=== PATIENT | female | born 1980 | race Caucasian/White ===

== ENCOUNTER 2019-01-08 16:51 | Emergency (ER) | payer SELFPAY ==
[~2019-01-08] VITALS: Ht 160 cm; Wt 59.0 kg
[~2019-01-08 16:51] MED LIST: ACYSUS PO; CEPH500C PO; FLC150T PO; METR500T PO; OXYC-12 PO; OXYC1TAB28 PO
--- NOTE | 2019-01-08 17:17 | NUR ---
DR BRUCE IN ROOM TRYING TO REMOVE THE RING.
[2019-01-08] MEDS ORDERED: LIDOCAINE 1% INJ 20 ML 20 ML VIAL ONE (17:34)
--- NOTE | 2019-01-08 17:56 | ED Upper Extremity ---
General Chief Complaint: Upper Extremity Stated Complaint: RING STUCK ON R PINKY FINGER Nursing Triage Note: TO TRIAGE WITH RING STUCK ON RIGHT 5TH FINGER. Nursing Sepsis Screen: No Definite Risk Source: patient Exam Limitations: no limitations History of Present Illness Date Seen by Provider: Jan 08, 2019 Time Seen by Provider: 17:10 Initial Comments 38-year-old female who presents to the emergency room with complaints of a ring has been stuck on her finger for the past 4 days. The pain is located on her right fifth finger. She reports that she has tried to cut the ring off at home on her own and has caused several small abrasions to her finger that has caused an infection. She has erythema and a moderate amount of swelling around the ring to the palmar surface of the finger. Onset: other (4 days) Pain/Injury Location: right 5th finger Allergies and Home Medications Allergies Coded Allergies: Sulfa (Sulfonamides) (Unverified Allergy, Unknown, 10/21/10) Home Medications Cephalexin 500 Mg Capsule, 500 MG PO TID Prescribed by: ALTA BARRETT on 01/08/19 1921 Patient Home Medication List Home Medication List Reviewed: Yes Review of Systems Constitutional: no symptoms reported, see HPI Skin: see HPI, other (Ring stuck on right fifth finger.) All Other Systems Reviewed Negative Unless Noted: Yes Past Jkbmnrj-Vcliju-Dqekdc Hx Past Med/Social Hx: Reviewed Nursing Past Med/Soc Hx Patient Social History Alcohol Use: Occasionally Uses Recreational Drug Use: No Smoking Status: Current Everyday Smoker Recent Foreign Travel: No Contact w/Someone Who Travel: No Recent Infectious Disease Expo: No Recent Hopitalizations: No Past Medical History Surgeries: No Respiratory: No Cardiac: No Neurological: No : No Reproductive Disorders: Yes Genitourinary: No Gastrointestinal: No Musculoskeletal: No Endocrine: No Cancer: No Psychosocial: Yes Anxiety Integumentary: No Blood Disorders: No Family Medical History Reviewed Nursing Family Hx Physical Exam Vital Signs Vital Signs - First Documented 01/08/19 16:57 Temp 98.7 Pulse 98 Resp 16 B/P (MAP) 114/90 (98) Pulse Ox 98 O2 Delivery Room Air Capillary Refill : Less Than 3 Seconds Height, Weight, BMI Height: 5'3.00" Weight: 130lbs. oz. 58.874898om; BMI Method:Stated General Appearance: WD/WN, no apparent distress Cardiovascular: normal peripheral pulses, regular rate, rhythm, no edema, no gallop, no JVD, no murmur Respiratory: chest non-tender, lungs clear, normal breath sounds, no respiratory distress, no accessory muscle use Hand: Right (fifth finger. ), infection (mild erythema and swelling to the palmar surface of the right fifth finger.), soft tissue tenderness, swelling Neurologic/Tendon: normal sensation, normal motor functions, normal tendon functions, responds to pain, no evidence tendon injury Neurologic/Psychiatric: alert, normal mood/affect, oriented x 3 Skin: normal color, warm/dry Procedures/Interventions Progress Ring was removed with a Dremel Tool with a circulating blade. The skin was protected from the dermal tool bladed by a thin piece of metal that was able to be slipped underneath the ring. The ring was cut into and pried apart to be able to be slipped off the finger. The patient has some macerated skin to the palmar surface of the finger and a moderate amount of swelling and erythema to the palmar surface of the finger. The patient was updated on her tetanus vaccine and she will be placed on oral antibiotics. She tolerated procedure well. The patient had full range of motion to the finger after removal of the ring. Progress/Results/Core Measures Results/Orders My Orders Orders - ALTA BARRETT Lidocaine 1% Inj 20 Ml (Xylocaine 1% Inj (01/08/19 17:34) Dipht,Pertuss(Acell),Tet Adult (Boostrix (01/08/19 18:00) Medications Given in ED Current Medications Medications Dose Ordered Sig/Soniya Route Start Time Stop Time Status Last Admin Dose Admin Lidocaine HCl 20 ml STK-MED ONCE .ROUTE 01/08/19 17:34 01/08/19 17:36 DC 01/08/19 17:42 20 ML Vital Signs/I&O 01/08/19 16:57 Temp 98.7 Pulse 98 Resp 16 B/P (MAP) 114/90 (98) Pulse Ox 98 O2 Delivery Room Air Blood Pressure Mean: 98 Departure Impression Primary Impression: removal of ring Additional Impression: Cellulitis Disposition: 01 HOME, SELF-CARE Condition: Stable/Unchanged Departure-Patient Inst. Decision time for Depature: 17:55 Referrals: NO,LOCAL PHYSICIAN (PCP/Family) Primary Care Physician Patient Instructions: Cellulitis (Skin Infection), Adult (DC) Add. Discharge Instructions: Take antibiotics as directed. Watch for furthering infection such as increased redness, swelling, drainage, red streaks going up the arm. You may use ibuprofen and Tylenol as directed by the bottle for pain relief. Return back to the emergency room for worsening symptoms. Follow-up With your primary care as needed. All discharge instructions reviewed with patient and/or family. Voiced understanding. Scripts Cephalexin (Keflex) 500 Mg Capsule 500 MG PO TID for 7 Days, #21 CAP Prov: ALTA BARRETT 01/08/19 ALTA BARRETT Jan 08, 2019 17:56
[2019-01-08] MEDS ORDERED: CEPH-507 PO (17:58)
[2019-01-08] MEDS ORDERED: TETANUS,DIPTH,PERTUSS P/F (BOOSTRIX) 0.5 ML VIAL IM ONE (18:00)
[2019-01-08 18:18] VITALS: BP 114/90
== END 2019-01-08 18:18 | disposition home or self-care (01) ==
LOC: EDUNIT# 16:51 → ER 16:52
DX: S60.456A Superficial foreign body of right little finger, initial encounter (principal); L03.011 Cellulitis of right finger; F41.9 Anxiety disorder, unspecified; F17.200 Nicotine dependence, unspecified, uncomplicated; Z23 Encounter for immunization; Z88.2 Allergy status to sulfonamides; X58.XXXA Exposure to other specified factors, initial encounter
CPT/HCPCS: 64450; 90715

== ENCOUNTER 2021-11-26 05:54 | Emergency (ER) | payer MEDICAID ==
[~2021-11-26 05:54] MED LIST changes: +CEPH-507 PO
--- OUTSIDE RECORDS SUMMARY | 2021-11-26 06:02 | XMS REPORT | Encounter Summary ---
Author Author [facility] Organization [facility] Address Unknown Phone Unavailable Care Team Providers Care Marketing Operations Consultant Name Role Phone No Pcp, Na PCP Unavailable Encounter Details Care Team Description Date Type Department Marcela King MD [address] [facility] [address] [address] Pelvic relaxation due to uterovaginal pr olapse, complete (Primary Dx); Encounter for screening laboratory testing for COVID-19 virus in asymptomatic patient; OAB (overactive bladder); Stress incontinence in female 11/06/2021 Prep for Case Urogynecology: [facility], [facility] [address] [place] [address] Social History Date Tobacco Use Types Packs/Day Years Used Current Every Day Smoker Cigarettes 0.5 Smokeless Tobacco: Never Used Comments Alcohol Use Standard Drinks/Week occ Yes 0 (1 standard drink = 0.6 o z pure alcohol) Alcohol Habits Answer Date Recorded How often do you have a drink containing alcohol? No t asked How many drinks containing alcohol do you have on No t asked a typical day when you are drinking? How often do you have six or more drinks on one Not asked occasion? Comment: occ 09/28/2021 Sex Assigned at Date Recorded Female 11/24/2021 11:30 AM V[employer]ITY B[employer] Date Recorded COVID-19 Exposure Response 10/11/2021 11:34 AM [employer] B[employer]ACH In the last month, have you been in contact with No / Unsure someone who was confirmed or suspected to have Coronavirus / COVID-19? documented as of this encounter Functional Status Date of Assessment Functional Status Response 09/29/2021 Does the patient have a hearing impairment: No documented as of this encounter Ordered Prescriptions Start Date End Date Prescription Sig Dispensed Refills 11/06/2021 metroNIDAZOLE (FLAGYL) Please take 6 tablet 0 500 mg tabletIndications: at the [facility] pre-surgical following preparation times: *1pm: take 2 tablets of Neomycin (500 mg tablets) and 2 tablets of Flagyl (500 mg tablets) *3pm: Take 2 tablets of Neomycin (500 mg tablets) and 2 tablets of Flagyl (500 mg tablets) *11pm: Take 2 tablets of Neomycin (500 mg tablets) and 2 tablets of Flagyl (500 mg tablets) *Please try to take all the antibiotics. Indications: [facility] pre-surgical preparation 11/06/2021 neomycin (MYCIFRADIN) 500 Please take 6 tablet 0 mg tabletIndications: at the [facility] pre-surgical following preparation times: *1pm: take 2 tablets of Neomycin (500 mg tablets) and 2 tablets of Flagyl (500 mg tablets) *3pm: Take 2 tablets of Neomycin (500 mg tablets) and 2 tablets of Flagyl (500 mg tablets) *11pm: Take 2 tablets of Neomycin (500 mg tablets) and 2 tablets of Flagyl (500 mg tablets) *Please try to take all the antibiotics. Indications: [facility] pre-surgical preparation 11/06/2021 11/07/2021 PRESURGERY KIT Use as 1 kit 0 AIndications: [facility] directed. pre-surgical preparation Indications: [facility] pre-surgical preparation documented in this encounter Plan of Treatment Care Team Description Date Type Specialty Marcela King MD [address] [facility] [address] [place] [id number] Encounter for screening laboratory testi ng for COVID-19 virus in asymptomatic patient 12/12/2021 Hospital Encounter Ney Mclain MD [id number] [place] [address] 12/12/2021 Anesthesia Event Marcela King MD [address] [facility] [address] [place] [id number] ROBOT ASSISTED LAPAROSCOPIC SUPRACERVICA L HYSTERECTOMY WITH REMOVAL OF TUBE/ OVARY - UTERUS 250 G OR LESS 12/12/2021 Surgery Order Schedule Name Type Priority Associated Diag noses Expected: 12/09/2021 (Approximate), Expi res: 11/06/2022 COVID-19 (SARS-COV-2) PCR Microbiology Routine Enco unter for screening laboratory testing for COVID-19 virus in asymptomatic patient ONE TIME for 1 Occurrences starting 10/13 until 11/06/2021 AMPHETAMINES-URINE RANDOM Lab Routine Date/Time Name Priority Associated Diagnose s 12/12/2021 7:45 AM VARSITY BASEBALL COACH ROBOT ASSISTED LAPAROSCOPIC Encounter for screening SUPRACERVICAL HYSTERECTOMY WITH REMOVAL laboratory testing for OF TUBE/ OVARY - UTERUS 250 G OR LESS COVID-19 viru s in asymptomatic patient 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, complete OAB (overactive bladder) Stress incontinence in female 12/12/2021 7:45 AM VARSITY BASEBALL COACH ROBOT ASSISTED LAPAROSCOPIC COLPOPEXY Encounter for screening laboratory testing for COVID-19 virus in asymptomatic patient 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, complete OAB (overactive bladder) Stress incontinence in female 12/12/2021 7:45 AM VARSITY BASEBALL COACH ABDOMINAL REPAIR OF ENTEROCELE Encounter for screen ing laboratory testing for COVID-19 virus in asymptomatic patient 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, complete OAB (overactive bladder) Stress incontinence in female 12/12/2021 7:45 AM VARSITY BASEBALL COACH ANTERIOR COLPORRHAPHY AND REPAIR OF Encounter for s creening CYSTOCELE WITH/ WITHOUT URETHROCELE laboratory test ing for COVID-19 virus in asymptomatic patient 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, complete OAB (overactive bladder) Stress incontinence in female 12/12/2021 7:45 AM VARSITY BASEBALL COACH POSTERIOR COLPORRHAPHY REPAIR OF Encounter for scre ening RECTOCELE WITH/ WITHOUT PERINEORRHAPHY laboratory t esting for COVID-19 virus in asymptomatic patient 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, complete OAB (overactive bladder) Stress incontinence in female 12/12/2021 7:45 AM VARSITY BASEBALL COACH SLING OPERATION FOR STRESS INCONTINENCE Encounter f or screening laboratory testing for COVID-19 virus in asymptomatic patient 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, complete OAB (overactive bladder) Stress incontinence in female 12/12/2021 7:45 AM VARSITY BASEBALL COACH CYSTOURETHROSCOPY Encounter for screening laboratory testing for COVID-19 virus in asymptomatic patient 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, complete OAB (overactive bladder) Stress incontinence in female 12/12/2021 7:45 AM VARSITY BASEBALL COACH EXAM PELVIS UNDER ANESTHESIA Encounter for screenin g laboratory testing for COVID-19 virus in asymptomatic patient 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, complete OAB (overactive bladder) Stress incontinence in female documented as of this encounter Visit Diagnoses Diagnosis Pelvic relaxation due to uterovaginal p rolapse, complete - Primary Uterovaginal prolapse, complete Encounter for screening laboratory test ing for COVID-19 virus in asymptomatic patient OAB (overactive bladder) Hypertonicity of bladder Stress incontinence in female Female stress incontinence Encounter for screening laboratory test ing for COVID-19 virus in asymptomatic patient Pelvic relaxation due to uterovaginal p rolapse, complete Uterovaginal prolapse, complete OAB (overactive bladder) Hypertonicity of bladder Stress incontinence in female Female stress incontinence documented in this encounter Orders First Ordered Date Case Request Count Last Ordered Date CASE REQUEST 1 11/06/2021 documented in this encounter Additional Health Concerns Noted Time Assessment 09/30/2021 8:20 AM [employer]ITY [employer] COACH A fall risk assessment has been complet ed for the patient 10/11/2021 11:48 AM VARSITY BASEBALL COACH PHQ-2 Depression Total Score: 0 documented as of this encounter Care Teams Start Date End Date Marketing Operations Consultant Relationship Specialty 09/28/21 No Pcp, Na PCP - General documented as of this encounter
--- OUTSIDE RECORDS SUMMARY | 2021-11-26 06:02 | XMS REPORT | Encounter Summary ---
Author Author [facility] Organization [facility] Address Unknown Phone Unavailable Care Team Providers Care Cdl A Driver Name Role Phone No Pcp, Na PCP Unavailable Reason for Referral * Consult, Test & Treat (Routine) - Authorized Diagnoses / Procedures Referred By Contact Referred To Conta ct Specialty Diagnoses Encounter to establish care Marcela King MD [address] [facility] [facility] [address] [place] [id number] [facility] [address] [place] [address] Family Medicine Referral ID Status Reason Start Date Expiration Visits Vi sits Date Requested Authorized [id number] Authorized Specialty Services 10/11/2021 10/11/2022 1 1 Required Comments Patient needs to establish care with a pcp as she [place].she will be having surgery here and wants all care at [facility] Reason for Visit * Reason Comments New Patient vaginal Prolapse/ wearing p essary Encounter Details Care Team Description Date Type Department Marcela King MD [address] [facility] [address] [place] [id number] Bacterial vaginosis (Primary Dx); Encounter to establish care; Suspected UTI; 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 [place] [phone] Social History Date Tobacco Use Types Packs/Day [...] at Date Recorded Female 11/24/2021 11:30 AM DIRECT ENTRY MIDWIFE Date Recorded COVID-19 Exposure Response 10/11/2021 11:34 AM DIRECT ENTRY MIDWIFE In the last month, have you been in contact with No / Unsure someone who was confirmed or suspected to have Coronavirus / COVID-19? documented as of this encounter Last Filed Vital Signs Reading Time Taken Comments Vital Sign 102/84 10/11/2021 11:43 AM DIRECT ENTRY MIDWIFE Blood Pressure 96 10/11/2021 11:43 AM DIRECT ENTRY MIDWIFE Pulse 37.4 C (99.3 F) 10/11/2021 11:43 AM DIRECT ENTRY MIDWIFE Temperature - - Respiratory Rate - - Oxygen Saturation - - Inhaled Oxygen Concentration 65.8 kg (145 lb) 10/11/2021 11:43 AM DIRECT ENTRY MIDWIFE Weight 162.6 cm (5' 4") 10/11/2021 11:43 AM DIRECT ENTRY MIDWIFE Height 24.89 10/11/2021 11:43 AM DIRECT ENTRY MIDWIFE Body Mass Index documented in this encounter Functional Status Date of Assessment Functional Status Response 09/29/2021 Does the patient have a hearing impairment: No documented as of this encounter Progress Notes * Marcela King MD - 10/11/2021 11:45 AM DIRECT ENTRY MIDWIFE Images from the original note were not included. DATE: 10/11/2021 REFERRING PHYSICIAN: self referral CHIEF COMPLAINT: New Patient (vaginal Prolapse/ wearing pessary) Subjective: Delia Mireles is a 41 y.o. female. History of Present Illness Delia Mireles is a 41-year-old female who presents today for a surgical consult. The patient reports that she is leaking with the pessary in place. She notes karen t it is only due to the fact that she could not get to the bathroom in time. She denies leaking with coughs or sneezes. The patient reports that she feels comfo rtable with the pessary. She feels that she is able to empty her bladder. She do es not get the sensation of her bladder being full. She notes that she is used to not going very much at all. She notes that she would have to go twice an hour and try to go to the bathroom. She notes that now it comes on now. With the pes kelvin in place, she feels as if the volume of the urine she is voiding has increa sed. The patient reports that she has not had many pap smears in the past, but every one that she has had has been normal. Her last pap smear was approximately 6 m onths ago. She had a vaginal delivery and notes that her child was very large. She notes that she has not had a urinary tract infection that she could recall. She has had a prior history of kidney infections in the past. She denies any pr ior issues with her bladder. She had prior surgery to stretch her bladder when s he was 3 or 4 years old. She wet the bed until she was 6 years old. She denies any heavy lifting. She notes that she is pretty conscious about her back. She no bernie that she has lifted a lot of heavy things before. She denies any sexual or a ny other bodily trauma. She denies abdominal hernias. She notes that after she h ad her first child, she had an obstruction and had to be hospitalized. She note s that she does take probiotics to prevent constipation. She drinks plenty of fl uids. She tries to be conscious of how she eats now due her father having diabet es. She notes that her brother was just diagnosed with diabetes. She feels as if her body is deteriorating over the last several years. She has not had health insurance in a long time. She is having dental issues. She denies seeing social work while in the hospital. When she did have a prolapse, she did not strain with her bowel movements. When it got to where it was unmanageable she would have to push on her abdomen to help relieve herself the rest of the wa y. She denies leaking with coughing or sneezing before having children. She has a history of amphetamine use. She has declined the use of any resources for her drug use. Review of Systems - General ROS: Denies recent weight change above 10 pounds, Denies malaise - HEENT ROS: Denies blurring of vision. Denies double vision, Denies glaucoma, D enies dry eyes - Cardiovascular ROS: Denies chest pain. Denies palpitations currently. Denies o rthopnea - Respiratory ROS: Denies shortness of breath, Denies cough, Denies wheezing c urrently - Gastrointestinal ROS: Denies constipation, Denies gastric reflux, Denies bloo d in stool, Denies diarrhea, Denies Irritable bowel syndrome, Denies nausea, Den ies vomiting, Denies abdominal pain - Endocrine ROS: Denies polydipsia, Denies excessive sweating. Denies hot flash es. Denies Thyroid disease - Hematological and Lymphatic ROS: Denies easy bruisability , Denies current ane warner, Denies adenopathy in the inguinal area - Neurological ROS: Denies syncope, Denies numbness in lower extremities, Denies neuropathy. Denies shooting pain down the legs, Denies shooting pain in the low er back, Denies low back pain - Musculoskeletal ROS: Denies Joint pain. Denies Edema in lower extremities. Den ies fibromyalgia - Psychological ROS: Denies depression, Denies anxiety, Denies thoughts of suici de, Denies thoughts of homicide, Denies recent seizure, Denies syncope - Dermatological ROS: Denies eczema. Denies skin rashes in the groin area and ot her sites ALLERGIES: Patient has no known allergies. History reviewed. No pertinent past medical history. Surgical History: Procedure Laterality Date BLADDER SURGERY 4 years old TONSILLECTOMY Family History Problem Relation Age of Onset Hypertension Mother Cancer-Breast Paternal Aunt Social History Socioeconomic History Marital status: Single Spouse name: Not on file Number of children: Not on file Years of education: Not on file Highest education level: Not on file Occupational History Not on file Tobacco Use Smoking status: Current Every Day Smoker Packs/day: 0.50 Types: Cigarettes Smokeless tobacco: Never Used Substance and Sexual Activity Alcohol use: Yes Comment: occ Drug use: Not Currently Sexual activity: Not Currently Other Topics Concern Not on file Social History Narrative Not on file Current Outpatient Medications: amoxicillin-potassium clavulanate (AUGMENTIN) 875/125 mg tablet, Take 1 tab let by mouth every 12 hours. Take with food., Disp: , Rfl: Objective: amoxicillin-potassium clavulanate (AUGMENTIN) 875/125 mg tablet Take 1 table t by mouth every 12 hours. Take with food. Vitals: 10/11/21 1143 BP: 102/84 BP Source: Arm, Right Upper Patient Position: Sitting Pulse: 96 Temp: 37.4 C (99.3 F) Weight: 65.8 kg (145 lb) Height: 162.6 cm (64") Body mass index is 24.89 kg/m. Physical Exam General appearance: not in acute distress, walking with normal gait, poor denten tion Mental status :oriented to time, place and person; anxious and tearful at times - cancelled her UDS testing today due to being very emotional Cardiovascular: high normal normal heart rate Chest / Respiratory: normal respiratory effort, unlabored breathing Back: No spine tenderness, no SI joint tenderness, No CVAT Neck: No thryromegally, no adenopathy Gastrointestinal / Abdomen: no masses, no rebound, no tenderness, soft, nondiste nded, no hernias Extremities: no gross deformities Peripheral vascular system: no cyanosis, extremities warm Dermatological: no perineal nevi or rashes noted Genitourinary: Patient seen and was hospitalized for complete procedentia STAGE IV uterine prolapse - a gellhorn pessary was placed with sedation prior to disc harge. Did not remove the pessary today due to recent exam confirming complete procedentia and patient's discomfort with pessary insertion ASSESSMENT: Overactive bladder sx. Unable to tolerate testing by UDS to confirm (patient can celled her scheduled UDS test today due to being overwhelmed) Stress incontinence sx. Unable to tolerate testing by UDS to confirm (patient cancelled her scheduled UDS test today due to being overwhelmed) Stage IV Uterovaginal prolapse confirmed when patient recently hospitalized by Karin Benavides The following surgical consultation was typed to discuss with the patient: STAGE IV UTEROVAGINAL PROLAPSE Treatment Options: Expectant management Kegals / Pelvic floor PT -> currently using a gellhorn pessary - desires surgery Pessary trial Surgical management: VAGINAL APPROACH: Not an option due to age/ desire to maintain sexual activity Colpocleisis 95% success at 10 years Unable to have intercourse, closes vagina No hysterectomy Possible anterior repair Possible posterior repair Possible enterocele repair Possible incontinence procedure (Urodynamics needed) ABDOMINAL APPROACH (abdominal incision / laparoscopy/ robotically) Sacrocolpopexy (mesh) 90% success at ten years Supracervical hysterectomy Possible anterior repair Possible posterior repair Possible enterocele repair Possible incontinence procedure (Urodynamics needed) __ OVERACTIVE BLADDER SX /URGE INCONTINENCE SX PAtient unable to tolerate UDS today Treatment Options: Expectant management Behavior modification limit caffeine timed voids Kegals/Pelvic Floor PT OAB medications Oxybutynin/ Ditropan, Oxytrol, Gelnique Detrol/Tolterodine, Toviaz Vesicare/Solifinacin Enablex/Darifenacin Santura/Tropsium Chloride Myrbetriq Chemodenervation Injection of Boto x into the bladder wall Neuromodulation Posterior tibial nerve stimulation (PTNS) Implant bladder p kevin (Interstim) ___ STRESS URINARY INCONTINENCE sx - unable to tolerate UDS testing - she is aware o f limitation of dx without study. Desires assessment with Q-TIP under anesthesi a to further determine whether MUS should be placed intraop Treatment Options: Expectant management Kegals / Pelvic floor PT Pessary trial Surgery (Gold Standard): Midurethral sling (polypropylene mesh) Cystourethroscopy PLANNED SURGERY: Laparoscopic Robotic Assisted Supracervical Hysterectomy with Bilateral Salpinge ctomy (Using laparoscopic instrument the uterus would be removed at the level of the cervix, leaving the cervix connected to the top of the vagina and fallopian tubes). She elect to keep ovaries. Laparoscopic Robotic Assisted Sacrocolpopexy (Using laparoscopic instruments a p olypropylene mesh would be attached to the top of the vagina and to the sacrum) Possible Laparoscopic Robotic Assisted Enterocele Repair (repair of an intestina l hernia into the vagina by excision and closure of the hernia sac) Possible Anterior Vaginal Repair (Through a vaginal incision, your own tissue b etween the vagina and bladder is brought together with suture to return the darya dder to its anatomical position and strengthen the support ) Possible Posterior Vaginal Repair (Through a vaginal incision, the tissue betwe en the vagina & rectum is brought together with suture to return the rectum to its anatomical position & strengthen the support ) Cystourethroscopy (look through a scope at the urethra and bladder) QTIP Test with possible placement of mid-urethral sling for hypermobility as rito ble to tolerate filling with urodynamics testing in the office -> desires sling placement if (+)hypermobility (placement of a permanent polypropylene sling mesh under the urethra through a vaginal incision for stress incontinence symptoms) RISKS OF SURGERY: Anesthesia or medication reaction DVT/PE (blood clot) Need for catheter use in the post-op period Chronic urinary retention Risk of a urinary tract infection Bleeding with associated risk of organ failure/injury or . I would wa nt to receive a blood transfusion it lifesaving or organ sparing Need for additional surgery New-onset urinary incontinence or worsened urge incontinence Fistulae formation Mesh erosion Injury to surrounding muscles, nerves, blood vessels or organs (bladder, u rethra, ureter, bowel) Post-op pain Pain with intercourse after 3 months (6%) Recurrent vaginal prolapse (65% lower [place] [facility] success rate) Infection, hematoma, or keloid/scar tissue at incision site Positioning injury PLAN: The patient desires surgery. We will perform a Laparoscopic Robotic Assisted Sac rocolpopexy. We discussed the risks and benefits of the surgery. With her histor y of amphetamine usage and evidence of usage recently , we informed her that it would not be safe to proceed with anesthesia if she used amphetamines within 14 days prior to surgery. Drug screening would likely be requested by anesthesia. A referral will be placed to a primary care physician. ATTESTATION This visit was documented by URIAH Hwang via audio recorded by Marissa Minaya, on October 11, 2021 5:[address] ENTRY MIDWIFE * Beth Pierre - 10/11/2021 11:45 AM DIRECT ENTRY MIDWIFE Pertinent Review of Systems: - General ROS: Denies recent weight change above 10 pounds, Denies malaise - HEENT ROS: Denies blurring of vision. Denies double vision, Denies glaucoma, D enies dry eyes - Cardiovascular ROS: Denies chest pain. Denies palpitations currently. Denies o rthopnea - Respiratory ROS: Denies shortness of breath, Denies cough, Denies wheezing c urrently - Gastrointestinal ROS: Denies constipation, Denies gastric reflux, Denies bloo d in stool, Denies diarrhea, Denies Irritable bowel syndrome, Denies nausea, Den ies vomiting, Denies abdominal pain - Endocrine ROS: Denies polydipsia, Denies excessive sweating. Denies hot flash es. Denies Thyroid disease - Hematological and Lymphatic ROS: Denies easy bruisability , Denies current ane warner, Denies adenopathy in the inguinal area - Neurological ROS: Denies syncope, Denies numbness in lower extremities, Denies neuropathy. Denies shooting pain down the legs, Denies shooting pain in the low er back, Denies low back pain - Musculoskeletal ROS: Denies Joint pain. Denies Edema in lower extremities. Den ies fibromyalgia - Psychological ROS: Denies depression, Denies anxiety, Denies thoughts of suici de, Denies thoughts of homicide, Denies recent seizure, Denies syncope - Dermatological ROS: Denies eczema. Denies skin rashes in the groin area and ot her sites CT ENTRY MIDWIFE documented in this encounter Plan of Treatment Care Team Description Date Type Specialty Marcela King MD [address] [facility] [address] [place] [id number] Encounter for screening laboratory testi ng for COVID-19 virus in asymptomatic patient 12/12/2021 Hospital Encounter Ney Mclain MD [address] [id number] [place], [place] [id number] 12/12/2021 Anesthesia Event Marcela King MD [address] [facility] [address] [place] [id number] ROBOT ASSISTED LAPAROSCOPIC SUPRACERVICA L HYSTERECTOMY WITH REMOVAL OF TUBE/ OVARY - UTERUS 250 G OR LESS 12/12/2021 Surgery Date/Time Name Priority Associated Diagnose s 12/12/2021 7:45 AM DIRECT ENTRY MIDWIFE ROBOT ASSISTED LAPAROSCOPIC Encounter for screening SUPRACERVICAL HYSTERECTOMY WITH REMOVAL laboratory testing for OF TUBE/ OVARY - UTERUS 250 G OR LESS COVID-19 viru s in asymptomatic patient 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, complete OAB (overactive bladder) Stress incontinence in female 12/12/2021 7:45 AM DIRECT ENTRY MIDWIFE ROBOT ASSISTED LAPAROSCOPIC COLPOPEXY Encounter for screening laboratory testing for COVID-19 virus in asymptomatic patient 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, complete OAB (overactive bladder) Stress incontinence in female 12/12/2021 7:45 AM DIRECT ENTRY MIDWIFE ABDOMINAL REPAIR OF ENTEROCELE Encounter for screen ing laboratory testing for COVID-19 virus in asymptomatic patient 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, complete OAB (overactive bladder) Stress incontinence in female 12/12/2021 7:45 AM DIRECT ENTRY MIDWIFE ANTERIOR COLPORRHAPHY AND REPAIR OF Encounter for s creening CYSTOCELE WITH/ WITHOUT URETHROCELE laboratory test ing for COVID-19 virus in asymptomatic patient 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, complete OAB (overactive bladder) Stress incontinence in female 12/12/2021 7:45 AM DIRECT ENTRY MIDWIFE POSTERIOR COLPORRHAPHY REPAIR OF Encounter for scre ening RECTOCELE WITH/ WITHOUT PERINEORRHAPHY laboratory t esting for COVID-19 virus in asymptomatic patient 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, complete OAB (overactive bladder) Stress incontinence in female 12/12/2021 7:45 AM DIRECT ENTRY MIDWIFE SLING OPERATION FOR STRESS INCONTINENCE Encounter f or screening laboratory testing for COVID-19 virus in asymptomatic patient 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, complete OAB (overactive bladder) Stress incontinence in female 12/12/2021 7:45 AM DIRECT ENTRY MIDWIFE CYSTOURETHROSCOPY Encounter for screening laboratory testing for COVID-19 virus in asymptomatic patient 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, complete OAB (overactive bladder) Stress incontinence in female 12/12/2021 7:45 AM DIRECT ENTRY MIDWIFE EXAM PELVIS UNDER ANESTHESIA Encounter for screenin g laboratory testing for COVID-19 virus in asymptomatic patient 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, complete OAB (overactive bladder) Stress incontinence in female Order Schedule Name Type Priority Associated Diag noses Ordered: 10/11/2021 AMB REFERRAL TO FAMILY Outpatient Routine Encount er to establish PRACTICE Referral care documented as of this encounter Results * CULTURE-URINE W/SENSITIVITY (10/11/2021 3:15 PM DIRECT ENTRY MIDWIFE) Battery Name URINE CULTURE [facility] Report Status FINAL 10/12/2021 MAIN LAB Specimen URINE CATHETER, IN AND OUT [facility] Description Special No special requests [facility] Requests Culture <10,000 CFU/ml MAIN LAB mixed contaminants Specimen Urine Performing Organization Address City/State/ZIP Code [facility] Number [facility] [address] [place] [address] * ONESWAB (10/11/2021) Specimen Vaginal structure (body structure) Narrative Performing Organization Address City/State/ZIP Code [facility] [address] [place] [address] documented in this encounter Visit Diagnoses Diagnosis Bacterial vaginosis - Primary Vaginitis and vulvovaginitis, unspecifi ed Encounter to establish care Other reasons for seeking consultation Suspected UTI Pelvic relaxation due to uterovaginal p rolapse, complete Uterovaginal prolapse, complete Mixed stress and urge urinary incontine nce Mixed incontinence urge and stress (mal e)(female) Encounter for screening laboratory test ing for COVID-19 virus in asymptomatic patient Pelvic relaxation due to uterovaginal p rolapse, complete Uterovaginal prolapse, complete OAB (overactive bladder) Hypertonicity of bladder Stress incontinence in female Female stress incontinence documented in this encounter Additional Health Concerns Noted Time Assessment 09/30/2021 8:20 AM DIRECT ENTRY MIDWIFE A fall risk assessment has been complet ed for the patient 10/11/2021 11:48 AM DIRECT ENTRY MIDWIFE PHQ-2 Depression Total Score: 0 documented as of this encounter Care Teams Start Date End Date Cdl A Driver Relationship Specialty 09/28/21 No Pcp, Na PCP - General documented as of this encounter
--- OUTSIDE RECORDS SUMMARY | 2021-11-26 06:02 | XMS REPORT | Encounter Summary ---
Author Author [facility] Organization [facility] Address Unknown Phone Unavailable Care Team Providers Care Shotgun Shell Assembly Machine Adjuster Name Role Phone No Pcp, Na PCP Unavailable Reason for Visit * Reason Onset Date Comments Follow-up Phone Call 11/14/2021 Encounter Details Care Team Description Date Type Department Marcela King MD [address] [facility] [address] [id number] Follow-up Phone Call 11/14/2021 Telephone Urogynecology: [facility] [address] [place] [address] Social History Date Tobacco Use Types Packs/Day [...] at Date Recorded Female 11/24/2021 11:30 AM OCULARIST documented as of this encounter Functional Status Date of Assessment Functional Status Response 09/29/2021 Does the patient have a hearing impairment: No documented as of this encounter Miscellaneous Notes * Telephone Encounter - Susan Noyola LPN - 11/14/2021 8:52 AM OCULARIST Called patient to discuss her upcoming procedure on 11/21. I lvm and told her karen t was only for the testing. I explained that the package she received in the abby l was for her actual surgery. I explained that she would keep that aside until h er surgery. I also explained that she would only be having her test, I told her that Dr King would call her to let her know any modifications for her surgery . I told her to arrive at the [facility] where we saw her last at 10:00 am for her URD testing and to come with a comfortably full bladder. ARIST documented in this encounter Plan of Treatment Care Team Description Date Type Specialty Marcela King MD [address] [facility] [address] [address] [id number] Encounter for screening laboratory testi ng for COVID-19 virus in asymptomatic patient 12/12/2021 Hospital Encounter Ney Mclain MD [address] [place] [id number] 12/12/2021 Anesthesia Event Marcela King MD [address] [facility] [address] [place] [address] [id number] ROBOT ASSISTED LAPAROSCOPIC SUPRACERVICA L HYSTERECTOMY WITH REMOVAL OF TUBE/ OVARY - UTERUS 250 G OR LESS 12/12/2021 Surgery Date/Time Name Priority Associated Diagnose s 12/12/2021 7:45 AM OCULARIST ROBOT ASSISTED LAPAROSCOPIC Encounter for screening SUPRACERVICAL HYSTERECTOMY WITH REMOVAL laboratory testing for OF TUBE/ OVARY - UTERUS 250 G OR LESS COVID-19 viru s in asymptomatic patient 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, complete OAB (overactive bladder) Stress incontinence in female 12/12/2021 7:45 AM OCULARIST ROBOT ASSISTED LAPAROSCOPIC COLPOPEXY Encounter for screening laboratory testing for COVID-19 virus in asymptomatic patient 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, complete OAB (overactive bladder) Stress incontinence in female 12/12/2021 7:45 AM OCULARIST ABDOMINAL REPAIR OF ENTEROCELE Encounter for screen ing laboratory testing for COVID-19 virus in asymptomatic patient 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, complete OAB (overactive bladder) Stress incontinence in female 12/12/2021 7:45 AM OCULARIST ANTERIOR COLPORRHAPHY AND REPAIR OF Encounter for s creening CYSTOCELE WITH/ WITHOUT URETHROCELE laboratory test ing for COVID-19 virus in asymptomatic patient 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, complete OAB (overactive bladder) Stress incontinence in female 12/12/2021 7:45 AM OCULARIST POSTERIOR COLPORRHAPHY REPAIR OF Encounter for scre ening RECTOCELE WITH/ WITHOUT PERINEORRHAPHY laboratory t esting for COVID-19 virus in asymptomatic patient 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, complete OAB (overactive bladder) Stress incontinence in female 12/12/2021 7:45 AM OCULARIST SLING OPERATION FOR STRESS INCONTINENCE Encounter f or screening laboratory testing for COVID-19 virus in asymptomatic patient 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, complete OAB (overactive bladder) Stress incontinence in female 12/12/2021 7:45 AM OCULARIST CYSTOURETHROSCOPY Encounter for screening laboratory testing for COVID-19 virus in asymptomatic patient 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, complete OAB (overactive bladder) Stress incontinence in female 12/12/2021 7:45 AM OCULARIST EXAM PELVIS UNDER ANESTHESIA Encounter for screenin g laboratory testing for COVID-19 virus in asymptomatic patient 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, complete OAB (overactive bladder) Stress incontinence in female documented as of this encounter Visit Diagnoses Not on filedocumented in this encounter Additional Health Concerns Noted Time Assessment 09/30/2021 8:20 AM OCULARIST A fall risk assessment has been complet ed for the patient 10/11/2021 11:48 AM OCULARIST PHQ-2 Depression Total Score: 0 documented as of this encounter Care Teams Start Date End Date Shotgun Shell Assembly Machine Adjuster Relationship Specialty 09/28/21 No Pcp, Na PCP - General documented as of this encounter
--- OUTSIDE RECORDS SUMMARY | 2021-11-26 06:02 | XMS REPORT | Encounter Summary ---
Author Author [facility] Organization [facility] Address Unknown Phone Unavailable Care Team Providers Care Awake Overnight Counselor Name Role Phone No Pcp, Na PCP Unavailable Encounter Details Care Team Description Date Type Department 09/28/2021 Travel Social History Date Tobacco Use Types Packs/Day Years Used Current Every Day Smoker Cigarettes 0.5 Comments Alcohol Use Standard Drinks/Week occ Yes [...] at Date Recorded Female 11/24/2021 11:30 AM CHEMICAL PROCESS EQUIPMENT OPERATOR Date Recorded COVID-19 Exposure Response 09/28/2021 2:59 PM CHEMICAL PROCESS EQUIPMENT OPERATOR In the last month, have you been in contact with No / Unsure someone who was confirmed or suspected to have Coronavirus / COVID-19? documented as of this encounter Functional Status Date of Assessment Functional Status Response 09/28/2021 Does the patient have a hearing impairment: No documented as of this encounter Plan of Treatment Care Team Description Date Type Specialty Marcela King MD [address] [facility] [address] [place] [id number] Encounter for screening laboratory testi ng for COVID-19 virus in asymptomatic patient 12/12/2021 Hospital Encounter Ney Mclain MD [address] [place] [address] 12/12/2021 Anesthesia Event Marcela King MD [address] [facility] [address] [place] [address] ROBOT ASSISTED LAPAROSCOPIC SUPRACERVICA L HYSTERECTOMY WITH REMOVAL OF TUBE/ OVARY - UTERUS 250 G OR LESS 12/12/2021 Surgery Date/Time Name Priority Associated Diagnose s 12/12/2021 7:45 AM CHEMICAL PROCESS EQUIPMENT OPERATOR ROBOT ASSISTED LAPAROSCOPIC Encounter for screening SUPRACERVICAL HYSTERECTOMY WITH REMOVAL laboratory testing for OF TUBE/ OVARY - UTERUS 250 G OR LESS COVID-19 viru s in asymptomatic patient 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, complete OAB (overactive bladder) Stress incontinence in female 12/12/2021 7:45 AM CHEMICAL PROCESS EQUIPMENT OPERATOR ROBOT ASSISTED LAPAROSCOPIC COLPOPEXY Encounter for screening laboratory testing for COVID-19 virus in asymptomatic patient 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, complete OAB (overactive bladder) Stress incontinence in female 12/12/2021 7:45 AM CHEMICAL PROCESS EQUIPMENT OPERATOR ABDOMINAL REPAIR OF ENTEROCELE Encounter for screen ing laboratory testing for COVID-19 virus in asymptomatic patient 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, complete OAB (overactive bladder) Stress incontinence in female 12/12/2021 7:45 AM CHEMICAL PROCESS EQUIPMENT OPERATOR ANTERIOR COLPORRHAPHY AND REPAIR OF Encounter for s creening CYSTOCELE WITH/ WITHOUT URETHROCELE laboratory test ing for COVID-19 virus in asymptomatic patient 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, complete OAB (overactive bladder) Stress incontinence in female 12/12/2021 7:45 AM CHEMICAL PROCESS EQUIPMENT OPERATOR POSTERIOR COLPORRHAPHY REPAIR OF Encounter for scre ening RECTOCELE WITH/ WITHOUT PERINEORRHAPHY laboratory t esting for COVID-19 virus in asymptomatic patient 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, complete OAB (overactive bladder) Stress incontinence in female 12/12/2021 7:45 AM CHEMICAL PROCESS EQUIPMENT OPERATOR SLING OPERATION FOR STRESS INCONTINENCE Encounter f or screening laboratory testing for COVID-19 virus in asymptomatic patient 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, complete OAB (overactive bladder) Stress incontinence in female 12/12/2021 7:45 AM CHEMICAL PROCESS EQUIPMENT OPERATOR CYSTOURETHROSCOPY Encounter for screening laboratory testing for COVID-19 virus in asymptomatic patient 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, complete OAB (overactive bladder) Stress incontinence in female 12/12/2021 7:45 AM CHEMICAL PROCESS EQUIPMENT OPERATOR EXAM PELVIS UNDER ANESTHESIA Encounter for screenin g laboratory testing for COVID-19 virus in asymptomatic patient 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, complete OAB (overactive bladder) Stress incontinence in female documented as of this encounter Visit Diagnoses Not on filedocumented in this encounter Care Teams Start Date End Date Awake Overnight Counselor Relationship Specialty 09/28/21 No Pcp, Na PCP - General documented as of this encounter
--- OUTSIDE RECORDS SUMMARY | 2021-11-26 06:02 | XMS REPORT | Encounter Summary ---
Author Author [facility] Organization [facility] Address Unknown Phone Unavailable Care Team Providers Care Bearing Inspector Name Role Phone No Pcp, Na PCP Unavailable Reason for Visit * Reason Comments Vaginal Prolapse reports its been going on f or awhile and states "I just got a medical card this week" * Auth/Cert Diagnoses / Procedures Referred By Contact Referred To Conta ct Specialty Diagnoses Uterine procidentia Referral ID Status Reason Start Date Expiration Visits Vi sits Date Requested Authorized [id number] 1 1 Encounter Details Care Team Description Date Type Department Kamala Harper, DO [address] [place] [address] 09/28/2021 Emergency Emergency Departmen t: [place], [facility] [address] [facility] [address] [place] [address] Social History Date Tobacco Use Types Packs/Day [...] at Date Recorded Female 11/24/2021 11:30 AM PRICING LEAD Date Recorded COVID-19 Exposure Response 09/28/2021 2:59 PM PRICING LEAD In the last month, have you been in contact with No / Unsure someone who was confirmed or suspected to have Coronavirus / COVID-19? documented as of this encounter Last Filed Vital Signs Reading Time Taken Comments Vital Sign 128/87 09/28/2021 3:01 PM PRICING LEAD Blood Pressure - - Pulse 37.1 C (98.7 F) 09/28/2021 3:01 PM PRICING LEAD Temperature - - Respiratory Rate 98% 09/28/2021 3:01 PM PRICING LEAD Oxygen Saturation - - Inhaled Oxygen Concentration 68 kg (150 lb) 09/28/2021 3:01 PM PRICING LEAD Weight - - Height - - Body Mass Index documented in this encounter Functional Status Date of Assessment Functional Status Response 09/28/2021 Does the patient have a hearing impairment: No documented as of this encounter Medications at Time of Discharge Start Date End Date Medication Sig Dispensed Refills 11/25/2021 amoxicillin-potassium Take 1 tablet 0 clavulanate (AUGMENTIN) by mouth 875/125 mg tablet every 12 hours. Take with food. documented as of this encounter Discharge Disposition Code Departure Means Destination Disposition Left Before Treatment Complete documented in this encounter Progress Notes * Sakina Tilley PA-C - 09/28/2021 6:03 PM PRICING LEAD Please contact pt with result - urine culture consistent with contamination. If not having UTI sx, no further culture needed. If having UTI sx, please place ord er for repeat culture with attention to clean catch process. It looks like from her chart she may need UDS rescheduled, so depending on when that is, we could w ait to collect sample then. ING LEAD documented in this encounter ED Notes * Janet Belle RN - 09/28/2021 6:03 PM PRICING LEAD Pt continues to not be in room, discharging as [facility] ING LEAD * Janet Belle RN - 09/28/2021 5:55 PM PRICING LEAD Pt not in room at this time ING LEAD * Janet Belle RN - 09/28/2021 5:24 PM PRICING LEAD Pt states she is feeling very anxious and needs to go to her car. Pt stated mult iple times that she would come back. Pt ambulatory with steady gait unassisted. ING LEAD * Mahamed Mena, FRIEND OF THE COURT-SURGICAL INSTRUMENT TECHNICIAN - 09/28/2021 5:04 PM PRICING LEAD Delia Mireles is a 41 y.o. female. Chief Complaint: Chief Complaint Patient presents with Vaginal Prolapse reports its been going on for awhile and states "I just got a medical card thi s week" History of Present Illness: Delia Mireles is a 41 y.o. female, with a history of uterine prolapse, who p resents to the emergency department for pelvic organ prolapse. Patient reports h istory of uterine prolapse about 1 year ago. She was treated by OBGYN at [facility] during this time in which they were able to reduce the prolapse. She has tried vaginal pessary and pelvic floor exercises since then, but continues to h ave prolapse. Her pain has significantly progressed the last few weeks with inte rmittent bleeding and pulling sensation to pelvis. She also describes having to push on lower abd in order to completely empty her bladder she denies dysuria. S he denies difficulty with bowel movements. Patient denies nausea, vomiting, and fevers. Of note, she is currently taking amoxicillin for dental infection. Patient reports 1 year ago was suggested she seek possible surgery here at , s he was unable to follow-up due to lack of health insurance, she states he recent ly has established health insurance and is seeking definitive treatment. History provided by: Patient development scientist used: No Review of Systems: Review of Systems Constitutional: Negative for chills and fever. HENT: Negative for sore throat. Eyes: Negative for visual disturbance. Respiratory: Negative for shortness of breath. Cardiovascular: Negative for chest pain. Gastrointestinal: Negative for abdominal pain, constipation, diarrhea, nausea an d vomiting. Genitourinary: Positive for vaginal bleeding (Intermittent over the last month). Negative for difficulty urinating and dysuria. Uterine prolapse Musculoskeletal: Negative for back pain. Skin: Negative for rash. Neurological: Positive for headaches. Negative for dizziness, syncope and light- headedness. Psychiatric/Behavioral: Negative for confusion. Allergies: Patient has no known allergies. Past Medical History: History reviewed. No pertinent past medical history. Past Surgical History: History reviewed. No pertinent surgical history. Pertinent medical/surgical history reviewed History reviewed. No pertinent past medical history. History reviewed. No pertinent surgical history. Social History: Social History Tobacco Use Smoking status: Current Every Day Smoker Packs/day: 0.50 Types: Cigarettes Substance Use Topics Alcohol use: Yes Comment: occ Drug use: Not Currently Social History Substance and Sexual Activity Drug Use Not Currently Family History: No family history on file. Vitals: ED Vitals Date and Time T BP P RR SPO2P SPO2 User 09/28/21 1501 37.1 C (98.7 F) 128/87 -- 14 PER MINUTE 90 98 % ES Physical Exam: Physical Exam Vitals and nursing note reviewed. Constitutional: Appearance: Normal appearance. HENT: Head: Normocephalic and atraumatic. Right Ear: External ear normal. Left Ear: External ear normal. Eyes: Conjunctiva/sclera: Conjunctivae normal. Cardiovascular: Rate and Rhythm: Normal rate and regular rhythm. Pulmonary: Effort: Pulmonary effort is normal. Breath sounds: Normal breath sounds. Abdominal: General: There is no distension. Palpations: Abdomen is soft. Tenderness: There is abdominal tenderness in the suprapubic area. Genitourinary: Uterus: With uterine prolapse. Comments: Grapefruit size mass protruding from vagina with central area likel y cervix, scant amount of bleeding. Musculoskeletal: General: Normal range of motion. Cervical back: Neck supple. Skin: General: Skin is warm and dry. Neurological: Mental Status: She is alert and oriented to person, place, and time. Mental s tatus is at baseline. Psychiatric: Mood and Affect: Mood normal. Behavior: Behavior normal. Laboratory Results: Labs Reviewed - No data to display Radiology Interpretation: EKG: ED Course: Patient seen and evaluated by Mahamed Mena APRN. Patient presents to the ED with vaginal pain and uterine prolapse, states she wa s diagnosed with uterine prolapse 1 year ago, has tried pessary and pelvic floor exercises without success, she has been unable to follow-up for possible surgic al treatment due to lack of health insurance, she has recently obtained health i nsurance and is interested in seeking more definitive treatment. Vital signs are reviewed and are stable, she is afebrile. Exam patient does have a grapefruit sized mass protruding from the vagina with c entral area appears to be consistent with cervix and a scant amount of bleeding. Discussed patient in evaluation with Dr. Harper, plan was to obtain a CBC and a C MP, and place a BUILDING CONSTRUCTION TEACHER consult. Upon returning to room to discuss plan with patient and prior to Dr. Harper evalu ating the patient the ED RN informed us that the patient had left the ED. ED Scoring: MDM Reviewed: previous chart, nursing note and vitals Interpretation: labs Facility Administered Meds: Medications - No data to display Clinical Impression: Clinical Impression Vaginal prolapse Female genital prolapse, unspecified type Disposition/Follow up ED Disposition ED Disposition [facility] No follow-up provider specified. Medications: There are no discharge medications for this patient. Procedure Notes: Procedures Attestation / Supervision: Helen Balbuena am scribing for and in the presence of Mahamed Mena APRN. Helen Diana Attestation / Supervision Note concerning Delia Mireles: The service was prov ided by the HIEU alone with immediate availability of a physician in the ED. and Mahamed Balbuena APRN-NP, personally performed the services described in th is documentation as scribed in my presence and it is both accurate and complete. KELLI Nicole ING LEAD * Janet Belle, SELVIN - 09/28/2021 3:56 PM PRICING LEAD Delia Mireles is a 41 y.o. female who presents to [facility]/54 with CC of Vaginal Prolapse. Pt states she has a prolapsed uterus that started approx 1 year ago a nd has progressed. Pt states she came to ED today due to worsening of prolapse, states it is completely out of her vagina. Pt describes it as if she had swollen testicles. Pt states she has never had a UTI d/t this situation. Pt states she went to [facility] in [place] and was supposed to have surgery by specialist, but did not have insurance. Pt states she tried to use pecerate previously. Pt states sh e cannot sit for long periods of time. Pt endorses some vaginal bleeding. Pt sta bernie she believes she had a period last week. Pt endorses slight pain at this jade e, worse with standing. Pt endorses headache at this time. Pt unsure of last BM. Pt denies fevers or chills, abdominal pain, N/V. Pt states she has some pelvic "pulling" pain and states she had bladder surgery at age 3 or 4. Pt resting on c art in lowest and locked position with call light in reach. No needs identified at this time. History reviewed. No pertinent past medical history. ING LEAD documented in this encounter Plan of Treatment Care Team Description Date Type Specialty Marcela King MD [address] [facility] [address] [place] [phone] Encounter for screening laboratory testi ng for COVID-19 virus in asymptomatic patient 12/12/2021 Hospital Encounter Ney Mclain MD [address] [place], [place] [id number] [place] [id number] 12/12/2021 Anesthesia Event Marcela King MD [address] [employer] [facility] [address] [place] [id number] ROBOT ASSISTED LAPAROSCOPIC SUPRACERVICA L HYSTERECTOMY WITH REMOVAL OF TUBE/ OVARY - UTERUS 250 G OR LESS 12/12/2021 Surgery Date/Time Name Priority Associated Diagnose s 12/12/2021 7:45 AM PRICING LEAD ROBOT ASSISTED LAPAROSCOPIC Encounter for screening SUPRACERVICAL HYSTERECTOMY WITH REMOVAL laboratory testing for OF TUBE/ OVARY - UTERUS 250 G OR LESS COVID-19 viru s in asymptomatic patient 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, complete OAB (overactive bladder) Stress incontinence in female 12/12/2021 7:45 AM PRICING LEAD ROBOT ASSISTED LAPAROSCOPIC COLPOPEXY Encounter for screening laboratory testing for COVID-19 virus in asymptomatic patient 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, complete OAB (overactive bladder) Stress incontinence in female 12/12/2021 7:45 AM PRICING LEAD ABDOMINAL REPAIR OF ENTEROCELE Encounter for screen ing laboratory testing for COVID-19 virus in asymptomatic patient 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, complete OAB (overactive bladder) Stress incontinence in female 12/12/2021 7:45 AM PRICING LEAD ANTERIOR COLPORRHAPHY AND REPAIR OF Encounter for s creening CYSTOCELE WITH/ WITHOUT URETHROCELE laboratory test ing for COVID-19 virus in asymptomatic patient 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, complete OAB (overactive bladder) Stress incontinence in female 12/12/2021 7:45 AM PRICING LEAD POSTERIOR COLPORRHAPHY REPAIR OF Encounter for scre ening RECTOCELE WITH/ WITHOUT PERINEORRHAPHY laboratory t esting for COVID-19 virus in asymptomatic patient 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, complete OAB (overactive bladder) Stress incontinence in female 12/12/2021 7:45 AM PRICING LEAD SLING OPERATION FOR STRESS INCONTINENCE Encounter f or screening laboratory testing for COVID-19 virus in asymptomatic patient 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, complete OAB (overactive bladder) Stress incontinence in female 12/12/2021 7:45 AM PRICING LEAD CYSTOURETHROSCOPY Encounter for screening laboratory testing for COVID-19 virus in asymptomatic patient 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, complete OAB (overactive bladder) Stress incontinence in female 12/12/2021 7:45 AM PRICING LEAD EXAM PELVIS UNDER ANESTHESIA Encounter for screenin g laboratory testing for COVID-19 virus in asymptomatic patient 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, complete OAB (overactive bladder) Stress incontinence in female documented as of this encounter Procedures Comments Procedure Name Priority Date/Time Associated Diag nosis CULTURE-URINE Routine 10/11/2021 Suspected UTI W/SENSITIVITY 3:15 PM PRICING LEAD documented in this encounter Results * CULTURE-URINE W/SENSITIVITY (10/11/2021 3:15 PM PRICING LEAD) Battery Name URINE CULTURE [facility] Report Status FINAL 10/12/2021 MAIN LAB Specimen URINE CATHETER, IN AND OUT JAGUAR MAIN LA B Description Special No special requests [facility] Requests Culture <10,000 CFU/ml [facility] mixed contaminants Specimen Urine Performing Organization Address City/State/ZIP Code P gomez Number MAIN LAB [address] [place] [address] documented in this encounter Visit Diagnoses Diagnosis Vaginal prolapse - Primary Unspecified prolapse of vaginal rosales Female genital prolapse, unspecified ty pe Suspected UTI Encounter for screening laboratory test ing for COVID-19 virus in asymptomatic patient Pelvic relaxation due to uterovaginal p rolapse, complete Uterovaginal prolapse, complete OAB (overactive bladder) Hypertonicity of bladder Stress incontinence in female Female stress incontinence documented in this encounter Administered Medications Action Date Dose Rate Site Medication Order MAR Action acetaminophen (TYLENOL) tablet 650 mg 650 mg, Oral, ONCE, 1 dose, On Sun09/28/21 at 1815, TOTAL ACETAMINOPHEN DOSE NOT TO EXCEED 4GM DAILY documented in this encounter Active and Recently Administered Medications Times are shown in PRICING LEAD. 09/27/2021 09/28/2021 Medication Order 09/26/2021 acetaminophen (TYLENOL) tablet 650 mg 650 mg, Oral, ONCE, 1 dose, On Sun09/28/21 at 1815, TOTAL ACETAMINOPHEN DOSE NOT TO EXCEED 4GM DAILY documented in this encounter Orders First Ordered Date Medications Ordered That Might Not Have Count Last Ordered Date Been Administered acetaminophen (TYLENOL) tablet 650 mg 1 09/28/2021 documented in this encounter Care Teams Start Date End Date Bearing Inspector Relationship Specialty 09/28/21 No Pcp, Na PCP - General documented as of this encounter
--- OUTSIDE RECORDS SUMMARY | 2021-11-26 06:02 | XMS REPORT | Encounter Summary ---
Author Author [facility] Organization [facility] Address Unknown Phone Unavailable Care Team Providers Care Product Handler Name Role Phone No Pcp, Na PCP Unavailable Reason for Visit * Reason Onset Date Comments Follow-up Phone Call 10/24/2021 Encounter Details Care Team Description Date Type Department Marcela King MD [address] [facility] [address] [phone] Follow-up Phone Call 10/24/2021 Telephone Urogynecology: [facility] [address] [place] [address] Social History Date Tobacco Use [...] at Date Recorded Female 11/24/2021 11:30 AM OIL AND GAS DRAFTER Date Recorded COVID-19 Exposure Response 10/11/2021 11:34 AM OIL AND GAS DRAFTER In the last month, have you been in contact with No / Unsure someone who was confirmed or suspected to have Coronavirus / COVID-19? documented as of this encounter Functional Status Date of Assessment Functional Status Response 09/29/2021 Does the patient have a hearing impairment: No documented as of this encounter Ordered Prescriptions Start Date End Date Prescription Sig Dispensed Refills 10/27/2021 11/03/2021 clindamycin (CLEOCIN HCL) Take one 21 capsule 0 300 mg capsule capsule by mouth every 8 hours for 7 days. Take with 8oz of water. 10/24/2021 10/27/2021 clindamycin (CLEOCIN HCL) Take one 21 capsule 0 300 mg capsule capsule by mouth every 8 hours for 7 days. Take with 8oz of water. documented in this encounter Miscellaneous Notes * Telephone Encounter - Ileana Loza RN - 10/27/2021 3:45 PM OIL AND GAS DRAFTER Patient requesting rx for clindamycin to be sent to [facility] [address] in [place], [place]. Rx sent. AND GAS DRAFTER * Telephone Encounter - Susan Noyola LPN - 10/24/2021 2:07 PM OIL AND GAS DRAFTER Patient called and lvm for me to call her. I returned her call and left a messag e in regards to AND GAS DRAFTER * Telephone Encounter - Susan Noyola LPN - 10/24/2021 1:28 PM OIL AND GAS DRAFTER Called patient to inform her of her results from both her urine and her vaginal culture and to discuss her URD testing. 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 Please inform patient and RX Clindamicin PO 300mg 1 PO TID x 7 days. Please discuss C. Diff precautions.. No Known Allergies Lab Results Component Value Date/Time CR 0.69 09/29/2021 02:18 AM Also recommend a 3 month course of lactobacillus probiotic to help normalize the vaginal tracy to prevent future recurrent infections. [employer] Ultimate Tracy 50 billion (pink bottle - states it is for [employer] [facility] SIGFOX) available at [employer] in refrigerated medication section or can be orde red on line). AND GAS DRAFTER documented in this encounter Plan of Treatment Care Team Description Date Type Specialty Marcela King MD [address] [facility] [address] [place] [phone] Encounter for screening laboratory testi ng for COVID-19 virus in asymptomatic patient 12/12/2021 Hospital Encounter Ney Mclain MD [id number] [place], [place] [phone] 12/12/2021 Anesthesia Event Marcela King MD [address] [facility] [address] [place] [phone] ROBOT ASSISTED LAPAROSCOPIC SUPRACERVICA L HYSTERECTOMY WITH REMOVAL OF TUBE/ OVARY - UTERUS 250 G OR LESS 12/12/2021 Surgery Date/Time Name Priority Associated Diagnose s 12/12/2021 7:45 AM OIL AND GAS DRAFTER ROBOT ASSISTED LAPAROSCOPIC Encounter for screening SUPRACERVICAL HYSTERECTOMY WITH REMOVAL laboratory testing for OF TUBE/ OVARY - UTERUS 250 G OR LESS COVID-19 viru s in asymptomatic patient 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, complete OAB (overactive bladder) Stress incontinence in female 12/12/2021 7:45 AM OIL AND GAS DRAFTER ROBOT ASSISTED LAPAROSCOPIC COLPOPEXY Encounter for screening laboratory testing for COVID-19 virus in asymptomatic patient 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, complete OAB (overactive bladder) Stress incontinence in female 12/12/2021 7:45 AM OIL AND GAS DRAFTER ABDOMINAL REPAIR OF ENTEROCELE Encounter for screen ing laboratory testing for COVID-19 virus in asymptomatic patient 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, complete OAB (overactive bladder) Stress incontinence in female 12/12/2021 7:45 AM OIL AND GAS DRAFTER ANTERIOR COLPORRHAPHY AND REPAIR OF Encounter for s creening CYSTOCELE WITH/ WITHOUT URETHROCELE laboratory test ing for COVID-19 virus in asymptomatic patient 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, complete OAB (overactive bladder) Stress incontinence in female 12/12/2021 7:45 AM OIL AND GAS DRAFTER POSTERIOR COLPORRHAPHY REPAIR OF Encounter for scre ening RECTOCELE WITH/ WITHOUT PERINEORRHAPHY laboratory t esting for COVID-19 virus in asymptomatic patient 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, complete OAB (overactive bladder) Stress incontinence in female 12/12/2021 7:45 AM OIL AND GAS DRAFTER SLING OPERATION FOR STRESS INCONTINENCE Encounter f or screening laboratory testing for COVID-19 virus in asymptomatic patient 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, complete OAB (overactive bladder) Stress incontinence in female 12/12/2021 7:45 AM OIL AND GAS DRAFTER CYSTOURETHROSCOPY Encounter for screening laboratory testing for COVID-19 virus in asymptomatic patient 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, complete OAB (overactive bladder) Stress incontinence in female 12/12/2021 7:45 AM OIL AND GAS DRAFTER EXAM PELVIS UNDER ANESTHESIA Encounter for screenin g laboratory testing for COVID-19 virus in asymptomatic patient 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, complete OAB (overactive bladder) Stress incontinence in female documented as of this encounter Visit Diagnoses Not on filedocumented in this encounter Discontinued Medications Start Date End Date Medication Sig Discontinue Reason 10/24/2021 10/27/2021 clindamycin (CLEOCIN HCL) Take one Reorder 300 mg capsule capsule by mouth every 8 hours for 7 days. Take with 8oz of water. documented as of this encounter Additional Health Concerns Noted Time Assessment 09/30/2021 8:20 AM OIL AND GAS DRAFTER A fall risk assessment has been complet ed for the patient 10/11/2021 11:48 AM OIL AND GAS DRAFTER PHQ-2 Depression Total Score: 0 documented as of this encounter Care Teams Start Date End Date Product Handler Relationship Specialty 09/28/21 No Pcp, Na PCP - General documented as of this encounter
--- OUTSIDE RECORDS SUMMARY | 2021-11-26 06:02 | XMS REPORT | Encounter Summary ---
Author Author [facility] Organization [facility] Address Unknown Phone Unavailable Care Team Providers Care Document Processing Specialist Name Role Phone No Pcp, Na PCP Unavailable Reason for Visit * Reason Onset Date Comments Follow-up Phone Call 11/07/2021 Encounter Details Care Team Description Date Type Department Marcela King MD [address] [facility] [address] [id number] Follow-up Phone Call 11/07/2021 Telephone Urogynecology: [facility], [facility] [address] [place] [address] Social History Date Tobacco Use [...] at Date Recorded Female 11/24/2021 11:30 AM CEMETERY WARDEN Date Recorded COVID-19 Exposure Response 10/11/2021 11:34 AM CEMETERY WARDEN In the last month, have you been in contact with No / Unsure someone who was confirmed or suspected to have Coronavirus / COVID-19? documented as of this encounter Functional Status Date of Assessment Functional Status Response 09/29/2021 Does the patient have a hearing impairment: No documented as of this encounter Miscellaneous Notes * Telephone Encounter - Susan Noyola LPN - 11/07/2021 11:50 AM CEMETERY WARDEN Called patient and lvm for her to return my call. I told her that we have her sc heduled for URD on 11/21/2021 under [facility], but explained that I wo uld be doing her procedure that day. I asked her to call back so I could discuss the plan Dr King has. I told her that the soonest robot assisted surgery was on 12/[address] King is holdi ng that day at this time for her surgery. I explained that I wanted to talk with her in regards to her upcoming appointment. I provided our phone number and will wait to hear back from her. TERY WARDEN documented in this encounter Plan of Treatment Care Team Description Date Type Specialty Marcela King MD [address] [facility] [address] [place] [id number] Encounter for screening laboratory testi ng for COVID-19 virus in asymptomatic patient 12/12/2021 Hospital Encounter Ney Mclain MD [address] [place] [id number] 12/12/2021 Anesthesia Event Marcela King MD [address] [facility] [address] [place] [id number] ROBOT ASSISTED LAPAROSCOPIC SUPRACERVICA L HYSTERECTOMY WITH REMOVAL OF TUBE/ OVARY - UTERUS 250 G OR LESS 12/12/2021 Surgery Date/Time Name Priority Associated Diagnose s 12/12/2021 7:45 AM C[employer]ETERY WARDEN ROBOT ASSISTED LAPAROSCOPIC Encounter for screening SUPRACERVICAL HYSTERECTOMY WITH REMOVAL laboratory testing for OF TUBE/ OVARY - UTERUS 250 G OR LESS COVID-19 viru s in asymptomatic patient 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, complete OAB (overactive bladder) Stress incontinence in female 12/12/2021 7:45 AM CEMETERY WARDEN ROBOT ASSISTED LAPAROSCOPIC COLPOPEXY Encounter for screening laboratory testing for COVID-19 virus in asymptomatic patient 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, complete OAB (overactive bladder) Stress incontinence in female 12/12/2021 7:45 AM CEMETERY WARDEN ABDOMINAL REPAIR OF ENTEROCELE Encounter for screen ing laboratory testing for COVID-19 virus in asymptomatic patient 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, complete OAB (overactive bladder) Stress incontinence in female 12/12/2021 7:45 AM CEMETERY WARDEN ANTERIOR COLPORRHAPHY AND REPAIR OF Encounter for s creening CYSTOCELE WITH/ WITHOUT URETHROCELE laboratory test ing for COVID-19 virus in asymptomatic patient 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, complete OAB (overactive bladder) Stress incontinence in female 12/12/2021 7:45 AM CEMETERY WARDEN POSTERIOR COLPORRHAPHY REPAIR OF Encounter for scre ening RECTOCELE WITH/ WITHOUT PERINEORRHAPHY laboratory t esting for COVID-19 virus in asymptomatic patient 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, complete OAB (overactive bladder) Stress incontinence in female 12/12/2021 7:45 AM CEMETERY WARDEN SLING OPERATION FOR STRESS INCONTINENCE Encounter f or screening laboratory testing for COVID-19 virus in asymptomatic patient 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, complete OAB (overactive bladder) Stress incontinence in female 12/12/2021 7:45 AM CEMETERY WARDEN CYSTOURETHROSCOPY Encounter for screening laboratory testing for COVID-19 virus in asymptomatic patient 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, complete OAB (overactive bladder) Stress incontinence in female 12/12/2021 7:45 AM CEMETERY WARDEN EXAM PELVIS UNDER ANESTHESIA Encounter for screenin g laboratory testing for COVID-19 virus in asymptomatic patient 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, complete OAB (overactive bladder) Stress incontinence in female documented as of this encounter Visit Diagnoses Not on filedocumented in this encounter Additional Health Concerns Noted Time Assessment 09/30/2021 8:20 AM CEMETERY WARDEN A fall risk assessment has been complet ed for the patient 10/11/2021 11:48 AM CEMETERY WARDEN PHQ-2 Depression Total Score: 0 documented as of this encounter Care Teams Start Date End Date Document Processing Specialist Relationship Specialty 09/28/21 No Pcp, Na PCP - General documented as of this encounter
--- OUTSIDE RECORDS SUMMARY | 2021-11-26 06:02 | XMS REPORT | Clinical Summary ---
Author Author [facility] Organization [facility] Address Unknown Phone Unavailable Care Team Providers Care Power Nut Runner Operator Name Role Phone No Pcp, Na PCP Unavailable Source Comments Some departments are not documenting in the electronic medical record. If you d o not see the information that you expected, contact Release of Information in [facility] [employer] Information Management department at [phone] for further assistan ce in locating additional records.[facility] Allergies No known active allergies Medications End Date Status Medication Sig Dispensed Refills Start Date Active neomycin (MYCIFRADIN) 500 Please take 6 tablet 0 mg tabletIndications: at the 1 ERAS pre-surgical following preparation times: *1pm: take [...] all the antibiotics. Indications: ERAS pre-surgical preparation Active metroNIDAZOLE (FLAGYL) Please take 6 tablet 0 500 mg tabletIndications: at the 1 ERAS pre-surgical following preparation times: *1pm: take [...] all the antibiotics. Indications: ERAS pre-surgical preparation 12/01/2021 Active ciprofloxacin (CIPRO) 500 Take one 20 tablet 0 mg tablet tablet by 2 mouth twice daily for 10 days. Active estradioL (ESTRACE) 0.01 Insert 1 gm 42.5 g 1 0 % (0.1 mg/g) vaginal in the vagina 2 cream two nights a week at bedtime. 11/28/2021 Active phenazopyridine Take one 20 tablet 0 (PYRIDIUM) 200 mg tablet tablet by 2 mouth three times daily as needed for Pain for up to 7 days. Take after meals for up to 2 days. Active L.acid/L.casei/B.bif/B.lo Take 1 0 n/FOS (PROBIOTIC BLEND capsule by PO) mouth daily. 11/25/2021 Discontinued (Removed from P [facility] Med List) amoxicillin-potassium Take 1 tablet 0 clavulanate (AUGMENTIN) by mouth 875/125 mg tablet every 12 hours. Take with food. 11/03/2021 clindamycin (CLEOCIN HCL) Take one 21 capsule 0 300 mg capsule capsule by 1 mouth every 8 hours for 7 days. Take with 8oz of water. 11/07/2021 PRESURGERY KIT Use as 1 kit 0 AIndications: ERAS directed. 1 pre-surgical preparation Indications: ERAS pre-surgical preparation Status Hospital, Clinic, or Ordered Dose Route Frequency Start End Date Other Facility Date Administered Medication Ended ciprofloxacin (CIPRO) 500 mg PO ONCE 11/21/19 0 tablet 500 mgIndications: 22 2 infection prophylaxis, medical Active Problems Problem Noted Date 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, compl ete 09/29/2021 Encounters Care Team Description Date Type Specialty Faiza Cormier MD General Question 11/26/2021 Telephone Obstetrics & Gyneco logy Marcela King MD Follow-up Phone Call 11/23/2021 Telephone [employer] Marcela King MD Arrived 11/21/2021 Office Visit [facility] Sakina Tilley PA-C Huggins, Melissa E, MD Suspected UTI (Primary Dx); History of urinary urgency; Incomplete uterine prolapse; Urinary incontinence, urge; Voiding dysfunction 11/21/2021 Procedure visit [employer] 11/21/2021 Travel Marcela King MD Follow-up Phone Call 11/14/2021 Telephone [employer] Marcela King MD Follow-up Phone Call 11/07/2021 Telephone [employer] Marcela King MD Pelvic relaxation due to uterovaginal pr olapse, complete (Primary Dx); Encounter for screening laboratory testing for COVID-19 virus in asymptomatic patient; OAB (overactive bladder); Stress incontinence in female 11/06/2021 Prep for Case [employer] Marcela King MD Follow-up Phone Call 10/24/2021 Telephone [employer] Sakina Tilley PA-C Results 10/18/2021 Telephone [employer] Beth Pierre Bacterial vaginosis 10/17/2021 Orders Only [employer] Marcela King MD ERRONEOUS ENCOUNTER--DISREGARD (Primary Dx) 10/11/2021 Procedure visit [employer] Marcela King MD Bacterial vaginosis (Primary Dx); Encounter to establish care; Suspected UTI; 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, complete; Mixed stress and urge urinary incontinence 10/11/2021 Office Visit [employer] 10/11/2021 Travel Marcela King MD Follow-up Phone Call 10/03/2021 Telephone [employer] Marlyn Garcia MD Complete uterovaginal prolapse (Primary Dx) 09/29/2021 Prep for Case Obstetrics & Gyneco Diane Michelle MD Chettiar, Tara N, MD Pelvic relaxation due to uterovaginal pr olapse, complete 09/28/2021 Emergency - 09/30/2021 Kamala Harper DO 09/28/2021 Emergency Emergency Medicine 09/28/2021 Travel from Last 3 Months Surgical History Surgery Date Site/Laterality Comments TONSILLECTOMY BLADDER SURGERY 4 years old Family History Medical History Relation Name Comments Hypertension Mother Cancer-Breast Paternal Aunt Relation Name Status Comments Mother Paternal Aunt Other Social History Date Tobacco Use Types Packs/Day [...] at Date Recorded Female 11/24/2021 11:30 AM REEL REPAIRER Date Recorded COVID-19 Exposure Response 11/21/2021 10:31 AM REEL REPAIRER In the last month, have you been in contact with No / Unsure someone who was confirmed or suspected to have Coronavirus / COVID-19? Last Filed Vital Signs Reading Time Taken Comments Vital Sign 124/88 11/21/2021 1:07 PM REEL REPAIRER Blood Pressure 94 11/21/2021 1:07 PM REEL REPAIRER Pulse 37.4 C (99.3 F) 10/11/2021 11:43 AM REEL REPAIRER Temperature - - Respiratory Rate 97% 09/30/2021 12:52 PM REEL REPAIRER Oxygen Saturation - - Inhaled Oxygen Concentration 65.3 kg (144 lb) 11/21/2021 1:07 PM REEL REPAIRER Weight 162.6 cm (5' 4.02") 11/21/2021 1:07 PM REEL REPAIRER Height 24.71 11/21/2021 1:07 PM REEL REPAIRER Body Mass Index Plan of Treatment Care Team Description Date Type Specialty Marcela King MD [address] [facility] [address] [place] [id number] Encounter for screening laboratory testi ng for COVID-19 virus in asymptomatic patient 12/12/2021 Hospital Encounter Ney Mclain MD [address] [place], [place] [id number] [place] [address] 12/12/2021 Anesthesia Event Marcela King MD [address] [facility] [address] [place] [address] [id number] ROBOT ASSISTED LAPAROSCOPIC SUPRACERVICA L HYSTERECTOMY WITH REMOVAL OF TUBE/ OVARY - UTERUS 250 G OR LESS 12/12/2021 Surgery Date/Time Name Priority Associated Diagnose s 12/12/2021 7:45 AM REEL REPAIRER ROBOT ASSISTED LAPAROSCOPIC Encounter for screening SUPRACERVICAL HYSTERECTOMY WITH REMOVAL laboratory testing for OF TUBE/ OVARY - UTERUS 250 G OR LESS COVID-19 viru s in asymptomatic patient 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, complete OAB (overactive bladder) Stress incontinence in female 12/12/2021 7:45 AM REEL REPAIRER ROBOT ASSISTED LAPAROSCOPIC COLPOPEXY Encounter for screening laboratory testing for COVID-19 virus in asymptomatic patient 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, complete OAB (overactive bladder) Stress incontinence in female 12/12/2021 7:45 AM REEL REPAIRER ABDOMINAL REPAIR OF ENTEROCELE Encounter for screen ing laboratory testing for COVID-19 virus in asymptomatic patient 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, complete OAB (overactive bladder) Stress incontinence in female 12/12/2021 7:45 AM REEL REPAIRER ANTERIOR COLPORRHAPHY AND REPAIR OF Encounter for s creening CYSTOCELE WITH/ WITHOUT URETHROCELE laboratory test ing for COVID-19 virus in asymptomatic patient 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, complete OAB (overactive bladder) Stress incontinence in female 12/12/2021 7:45 AM REEL REPAIRER POSTERIOR COLPORRHAPHY REPAIR OF Encounter for scre ening RECTOCELE WITH/ WITHOUT PERINEORRHAPHY laboratory t esting for COVID-19 virus in asymptomatic patient 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, complete OAB (overactive bladder) Stress incontinence in female 12/12/2021 7:45 AM REEL REPAIRER SLING OPERATION FOR STRESS INCONTINENCE Encounter f or screening laboratory testing for COVID-19 virus in asymptomatic patient 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, complete OAB (overactive bladder) Stress incontinence in female 12/12/2021 7:45 AM REEL REPAIRER CYSTOURETHROSCOPY Encounter for screening laboratory testing for COVID-19 virus in asymptomatic patient 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, complete OAB (overactive bladder) Stress incontinence in female 12/12/2021 7:45 AM REEL REPAIRER EXAM PELVIS UNDER ANESTHESIA Encounter for screenin g laboratory testing for COVID-19 virus in asymptomatic patient 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, complete OAB (overactive bladder) Stress incontinence in female Health Maintenance Due Date Last Done Comments HIV SCREENING 1997 DTAP/TDAP VACCINES (1 - 2000 Tdap) HEPATITIS C SCREENING 2000 PHYSICAL (COMPREHENSIVE) 2000 EXAM INFLUENZA VACCINE 06/12/2021 CERVICAL CANCER SCREENING 09/30/2024 09/30/2021 Procedures Comments Procedure Name Priority Date/Time Associated Diag nosis CULTURE-URINE 11/21/2021 W/SENSITIVITY 11:02 AM REEL REPAIRER OR COMPLX CYSTOMETRO Routine 11/21/2021 History o f urinary W/VOID PRESS & URETHRAL 10:00 AM REEL REPAIRER urgency PROFIL Incomplete uterine prolapse Urinary incontinence, urge Voiding dysfunction OR COMPLEX UROFLOMETRY Routine 11/21/2021 History of urinary 10:00 AM REEL REPAIRER urgency Incomplete uterine prolapse Urinary incontinence, urge Voiding dysfunction OR EMG STDS ANAL/URTL Routine 11/21/2021 History of urinary SPHNCTR OTH/THN NDL 10:00 AM REEL REPAIRER urgency Incomplete uterine prolapse Urinary incontinence, urge Voiding dysfunction OR VOID PRESSURE STUDIES Routine 11/21/2021 Histo ry of urinary INTRAABDOMINAL 10:00 AM REEL REPAIRER urgency Incomplete uterine prolapse Urinary incontinence, urge Voiding dysfunction CULTURE-URINE Routine 10/11/2021 Suspected UTI W/SENSITIVITY 3:15 PM REEL REPAIRER ONESWAB Routine 10/11/2021 Bacterial vagin osis CYTOLOGY PAP SMEAR Routine 09/30/2021 SCREENING 8:00 AM REEL REPAIRER THIN PREP HOLD LABEL Routine 09/30/2021 7:00 AM REEL REPAIRER HC PHENCYCLIDINES; QUAL STAT 09/29/2021 5:45 PM REEL REPAIRER HC OPIATES; QUAL STAT 09/29/2021 5:45 PM REEL REPAIRER HC COCAINE; QUAL STAT 09/29/2021 5:45 PM REEL REPAIRER HC CANNABINOIDS; QUAL STAT 09/29/2021 5:45 PM REEL REPAIRER HC BENZODIAZEPINES, QUAL STAT 09/29/2021 5:45 PM REEL REPAIRER HC BARBITURATES STAT 09/29/2021 5:45 PM REEL REPAIRER HC AMPHETAMINES QUAL, STAT 09/29/2021 URINE 5:45 PM REEL REPAIRER UA REFLEX LABEL STAT 09/29/2021 5:45 PM REEL REPAIRER URINALYSIS MICROSCOPIC STAT 09/29/2021 REFLEX TO CULTURE 5:45 PM REEL REPAIRER HC URINALYSIS UAR STAT 09/29/2021 5:45 PM REEL REPAIRER COVID-19 (SARS-COV-2) PCR Routine 09/29/2021 3:40 AM REEL REPAIRER DIRECT EXAM (WET PREP) Routine 09/29/2021 3:30 AM REEL REPAIRER HC COMPREHENSIVE STAT 09/29/2021 METABOLIC PANEL 2:18 AM REEL REPAIRER HC CBC W/ AUTOMATED DIFF STAT 09/29/2021 2:18 AM REEL REPAIRER from Last 3 Months Results * CULTURE-URINE W/SENSITIVITY (11/21/2021 11:02 AM REEL REPAIRER) Only the most recent of 2 results within the time period is included. Battery Name URINE CULTURE MAIN LAB Report Status FINAL 11/22/2021 MAIN LAB Specimen URINE MAIN LAB Description Special No special requests [facility] Requests Culture NO GROWTH [facility] Specimen Urine Performing Organization Address City/State/ZIP Code P gomez Number MAIN LAB [address] [place] [address] * OR VOID PRESSURE STUDIES INTRAABDOMINAL, OR EMG STDS ANAL/URTL SPHNCTR OTH/THN NDL, OR COMPLEX UROFLOMETRY, OR COMPLX CYSTOMETRO W/VOID PRESS & URETHRAL PROFIL (11/21/2021 10:00 AM REEL REPAIRER) Narrative IN CLINIC - 11/21/2021 10:00 AM REEL REPAIRER Marcela King MD 11/21/2021 1:32 PM URODYNAMIC CLINIC REPORT Neena Mireles was seen for UDS on 11/21/2021 for the following indications: Uterovaginal prolapse , urinary urgency, mixed incontinence symptoms The patient was brought to the urodynamics room. She was asked to void with evaluation by uroflow. A urine dip confirmed no evidence of infection. A 7 Fr urodynamic catheter was placed intravesically (Gi, Pves) and in the rectum (Pabd). There was reduction of vaginal prolapse with a gelhorn pessary, and one colpotip . EMG stickers were affixed to the bilateral buttock and grounded on the patient's knee. The patient was in the sitting position and was asked to cough to confirm proper placement of the pressure catheters. Cystometrogram was performed with filling at up to 50 mL/min. Incremental sensations of fullness were recorded, and a cough stress test and valsalva stress test were performed as below. A urethral closure pressure profile with a puller evaluated the urethral patency. The patient was asked to void with the catheters in place for a pressure flow study. At the conclusion of the study all of the catheters, EMG stickers, and prolapse reducing devices were removed. UROFLOW: Maximum flow: 18 ml/s Max flow 11 Average flow: 0.5 ml/s Avg flow 0.2 Voided volume: 70 ml Vol. Voided 35 ml Post void residual: 10 ml (cath) PVR 33 ml Cath specimen dip (neg )nitrites Patient emptied appx 25-30 mls prior to the uroflow , as she was getting on the chair. CYSTOMETROGRAM: The pump did not start working until 49 ml First sensation: 31ml + 49 ml (normal is 175-300ml) 50% of maximum capacity First desire: 52 ml + 49 ml (normal is 260-450ml) 75% of maximum capacity Strong desire: 131 ml + 49 ml (normal is 315-540ml 90 % of maximum capacity Maximum capacity: 173 ml + 49 ml (normal is 350-600ml) Are induced detrussor contractions present? Yes @ 200 mL with filling [place] PRESSURE: NO LEAKING URETHRAL CLOSURE PRESSURE PROFILE: Max urethral pressure 98 cmH2O, 91 cmH2O. PRESSURE FLOW STUDIES Max flow rate 634 ml/sec Average flow rate 4.6 ml/sec Pressure at peak flow 228 cmH2O Volume voided 260 ml PVR 75 ml (calculated) Obstruction: suspected 11/21/21 URODYNAMICS IMPRESSION: Performed with Gellhorn pessary in place 1) Uroflowmetry could not be interpreted due to starting volume of <150mL. There was evidence of retention by her presentation today with Stage IV prolapse and inability to void until her prolapse was reduced. 2) There was sensory urgency with a [place] city of 271 mL. 3) Urodynamic stress urinary incontinenc e was not present with a normal pressure urethra. (UCPP 98 cm H2O) 4) Detrusor overactivity was present and was not associated with incontinence 5) The voiding pattern was dysfunctional Procedure Note Marcela King MD - 11/21/2021 10:00 AM REEL REPAIRER URODYNAMIC CLINIC REPORT Neena Mireles was seen for UDS on 11/21/2021 for the following indications: Uterovaginal prolapse , urinary urgency, mixed incontinence symptoms The patient was brought to the urodynamics room. She was asked to void with evaluation by uroflow. A urine dip confirmed no evidence of infection. A 7 Fr urodynamic catheter was placed intravesically (Gi, Pves) and in the rectum (Pabd). There was reduction of vaginal prolapse with a gelhorn pessary, and one colpotip . EMG stickers were affixed to the bilateral buttock and grounded on the patient's knee. The patient was in the sitting position and was asked to cough to confirm proper placement of the pressure catheters. Cystometrogram was performed with filling at up to 50 mL/min. Incremental sensations of fullness were recorded, and a cough stress test and valsalva stress test were performed as below. A urethral closure pressure profile with a puller evaluated the urethral patency. The patient was asked to void with the catheters in place for a pressure flow study. At the conclusion of the study all of the catheters, EMG stickers, and prolapse reducing devices were removed. UROFLOW: Maximum flow: 18 ml/s Max flow 11 Average flow: 0.5 ml/s Avg flow 0.2 Voided volume: 70 ml Vol. Voided 35 ml Post void residual: 10 ml (cath) PVR 33 ml Cath specimen dip (neg )nitrites Patient emptied appx 25-30 mls prior to the uroflow , as she was getting on the chair. CYSTOMETROGRAM: The pump did not start working until 49 ml First sensation: 31ml + 49 ml (normal is 175-300ml) 50% of maximum capacity First desire: 52 ml + 49 ml (normal is 260-450ml) 75% of maximum capacity Strong desire: 131 ml + 49 ml (normal is 315-540ml 90 % of maximum capacity Maximum capacity: 173 ml + 49 ml (normal is 350-600ml) Are induced detrussor contractions present? Yes @ 200 mL with filling [place] PRESSURE: NO LEAKING URETHRAL CLOSURE PRESSURE PROFILE: Max urethral pressure 98 cmH2O, 91 cmH2O. PRESSURE FLOW STUDIES Max flow rate 634 ml/sec Average flow rate 4.6 ml/sec Pressure at peak flow 228 cmH2O Volume voided 260 ml PVR 75 ml (calculated) __ Obstruction: suspected 11/21/21 URODYNAMICS IMPRESSION: Performed with Gellhorn pessary in place 1) Uroflowmetry could not be interpreted due to starting volume of <150mL. There was evidence of retention by her presentation today with Stage IV prolapse and inability to void until her prolapse was reduced. 2) There was sensory urgency with a capa city of 271 mL. 3) Urodynamic stress urinary incontinenc e was not present with a normal pressure urethra. (UCPP 98 cm H2O) 4) Detrusor overactivity was present and was not associated with incontinence 5) The voiding pattern was dysfunctional Performing Organization Address City/State/ZIP Code P gomez Number IN CLINIC * [facility] (10/11/2021) Specimen Vaginal structure (body structure) Narrative Performing Organization Address City/State/ZIP Code P gomez Number [facility] [address] [place] [address] * CYTOLOGY PAP SMEAR SCREENING (09/30/2021 8:00 AM REEL REPAIRER) Cytology [facility] [email or web address] Department of Pathology and Laboratory Medicine [address] [place] [id number]. Office: [phone] CYTOLOGY REPORT NAME: NEEAN MIRELES CYTOLOGY #: [id number] MR #: [id number] ALT ID #: [id number] #: [id number] LOCATION: 56 DATE OF PROCEDURE: 09/30/2021 08:00 AGE: 41 SEX: F DATE RECEIVED: 10/03/2021 : 1980 TIME RECEIVED: 14:00 PHYSICIAN: MARLYN GARCIA MD DATE OF REPORT: 10/05/2021 COPY TO: DATE OF PRINTIN10/05/2021 HISTORY: Date of Last Menstrual Period: 09-21-21 Menstrual History: Irregular Contraceptive History: None Cancer History: No history cancer Infection History: None Given Treatment History: None Other Clinical Conditions: None Given MATERIAL RECEIVED: A: Thin Prep Pap Test-Cervical /Vaginal Cytologic Material ############################## ############################## ############ ############################## ############################## ############ Final Diagnosis: A. Thin Prep Pap Test-Cervical /Vaginal Cytologic Material: Satisfactory for evaluation. Quality Indicator: Endocervical/transformation component is present. Negative for intraepithelial lesion or malignancy. This specimen was sent for HPV testing. See comment for HPV testing results. As a part of our construction quality control manager program, this case has been rescreened by a cuprous chloride operator. Comment HPV, High Risk: Negative LeTV Gen-Probe APTIMA HR-HPV Assay is a FDA approved in vitro nucleic acid amplification test for the qualitative detection of E6/E7 viral messenger RNA (mRNA) from 14 high-risk types of human papillomavirus (HPV) in cervical specimens. The high-risk HPV types detected by the assay include: 16, 18, 31, 33, 35, 39, 45, 51, 52, 56, 58, 59, 66, and 68. The assay has been validated by the Department of Pathology and Laboratory Medicine at [facility] using LeTV Gen-Probe [employer] System. The primary screening of this case is performed at the [facility], [address] [place] [address]. Attestation: By this signature, I attest that I have personally formulated the final interpretation expressed in this report and that the above diagnosis is based upon my examination of the slides and/or other material indicated in this report. egt/10/05/2021 +++Electronically Signed Out By Carrie Romero+++ AIDEN SWEET(ASCP) Cervical cytology is a SCREENING TEST primarily for detecting cancers and precancerous lesions. This screening test has a well documented false negative rate. Your patient's pap test results should be interpreted in conjunction with history and clinical findings. Reported using [place] System terminology. Technical component performed by the [facility] at [address] [place] [address]. CLIA # [id number]. Professional component performed by [facility] ([facility]) at [address] [place] [address]. CLIA # [id number]. Technical component performed by the [facility] at [address] [place] [address]. CLIA # [id number]. Professional component performed by [facility] ([facility]) at [address] [place] [address]. CLIA # [id number]. Specimen Cervix uteri structure (body structure) Performing Organization Address City/State/ZIP Code P gomez Number [facility] [address] [place] [address] * THIN PREP HOLD LABEL (09/30/2021 7:00 AM REEL REPAIRER) THIN PREP HOLD RECEIVED [facility] Specimen Performing Organization Address [facility] P gomez Number [facility] [address] [place] [address] * UA REFLEX LABEL (09/29/2021 5:45 PM REEL REPAIRER) UA Reflex Criteria for reflex to culture [facility] Culture are WBC>10, Positive Nitrit e, and/or >=+1 leukocytes. If quantity is not sufficient, an addendum will follow. Specimen Urine specimen (specimen) Performing Organization Address [facility] P gomez Number [facility] [address] [place] [address] * URINALYSIS MICROSCOPIC REFLEX TO CULTURE (09/29/2021 5:45 PM REEL REPAIRER) WBCs,UA 0-2 0 - 2 /HPF [facility] RBCs,UA 0-2 0 - 3 /HPF [facility] Comment,UA Criteria for reflex to culture [facility] are WBC>10, Positive Nitrite, and/or >=+1 leukocytes. If quantity is not sufficient, an addendum will follow. Squamous 0-2 0 - 5 [facility] Epithelial Cells Specimen Urine specimen (specimen) Performing Organization Address [facility] P gomez Number [facility] [address] [place] [address] * (ABNORMAL) URINALYSIS DIPSTICK REFLEX TO CULTURE (09/29/2021 5:45 PM REEL REPAIRER) Color,UA STRAW [facility] Turbidity,UA CLEAR CLEAR-CLEAR [facility] Specific 1.005Comment: NOTE NEW 1.005 - 1.030 [facility] [place]-Urine REFERENCE RANGES pH,UA 7.0 5.0 - 8.0 [facility] Protein,UA NEG NEG-NEG [facility] Glucose,UA NEG NEG-NEG [facility] Ketones,UA NEG NEG-NEG [facility] Bilirubin,UA NEG NEG-NEG [facility] Blood,UA 2+ (A) NEG-NEG [facility] Urobilinogen,UA NORMAL NORM-NORMAL [facility] Nitrite,UA NEG NEG-NEG [facility] Leukocytes,UA NEG NEG-NEG [facility] Urine Ascorbic NEG NEG-NEG [facility] Acid, UA Specimen Urine specimen (specimen) Performing Organization Address [facility]/State/[facility] [email or web address]] Code P gomez Number [facility] [address] [place] [address] * PHENCYCLIDINES-URINE RANDOM (09/29/2021 5:45 PM REEL REPAIRER) Phencyclidine NEG NEG-NEG MAIN LAB (PCP) Comment: RESULTS WERE OBTAINED BY IMMUNOASSAY AND ARE PRESUMPTIVE ONLY. POSITIVE INDICATES THE PRESENCE OF SUBSTANCE WITH CHARACTERISTICS SIMILAR TO DRUG-DRUG CLASS OR METABOLITE IN CONC. EQUAL TO OR EXCEEDING VALUES LISTED. PHENCYCLIDINE (PCP) 25 NG/ML Specimen Urine - Urine specimen (specimen) Performing Organization Address City/[facility] [[email or web address]] Code P gomez Number MAIN LAB [address] [place] [address] * OPIATES-URINE RANDOM (09/29/2021 5:45 PM REEL REPAIRER) Opiates-Urine NEG NEG-NEG MAIN LAB Comment: RESULTS WERE OBTAINED BY IMMUNOASSAY AND ARE PRESUMPTIVE ONLY. POSITIVE INDICATES THE PRESENCE OF SUBSTANCE WITH CHARACTERISTICS SIMILAR TO DRUG-DRUG CLASS OR METABOLITE IN CONC. EQUAL TO OR EXCEEDING VALUES LISTED. OPIATES 2000 NG/ML Specimen Urine - Urine specimen (specimen) Performing Organization Address [facility] [[email or web address]] Code P gomez Number MAIN LAB [address] [place] [address] * COCAINE-URINE RANDOM (09/29/2021 5:45 PM REEL REPAIRER) Cocaine-Urine NEG NEG-NEG MAIN LAB Comment: RESULTS WERE OBTAINED BY IMMUNOASSAY AND ARE PRESUMPTIVE ONLY. POSITIVE INDICATES THE PRESENCE OF SUBSTANCE WITH CHARACTERISTICS SIMILAR TO DRUG-DRUG CLASS OR METABOLITE IN CONC. EQUAL TO OR EXCEEDING VALUES LISTED. COCAINE 300 NG/ML Specimen Urine - Urine specimen (specimen) Performing Organization Address [facility] [[email or web address]] Code P gomez Number MAIN LAB [address] [place] [address] * CANNABINOIDS-URINE RANDOM (09/29/2021 5:45 PM REEL REPAIRER) THC NEG NEG-NEG MAIN LAB Comment: RESULTS WERE OBTAINED BY IMMUNOASSAY AND ARE PRESUMPTIVE ONLY. POSITIVE INDICATES THE PRESENCE OF SUBSTANCE WITH CHARACTERISTICS SIMILAR TO DRUG-DRUG CLASS OR METABOLITE IN CONC. EQUAL TO OR EXCEEDING VALUES LISTED. CANNABINOIDS 50 NG/ML Specimen Urine - Urine specimen (specimen) Performing Organization Address [facility] [[email or web address]] Code P gomez Number MAIN LAB [address] [place] [address] * BENZODIAZEPINES-URINE RANDOM (09/29/2021 5:45 PM REEL REPAIRER) Benzodiazepines NEG NEG-NEG MAIN LAB Comment: RESULTS WERE OBTAINED BY IMMUNOASSAY AND ARE PRESUMPTIVE ONLY. POSITIVE INDICATES THE PRESENCE OF SUBSTANCE WITH CHARACTERISTICS SIMILAR TO DRUG-DRUG CLASS OR METABOLITE IN CONC. EQUAL TO OR EXCEEDING VALUES LISTED. BENZODIAZEPINES 200 NG/ML Specimen Urine - Urine specimen (specimen) Performing Organization Address [facility] P gomez Number MAIN LAB [address] [place] [address] * BARBITURATES-URINE RANDOM (09/29/2021 5:45 PM REEL REPAIRER) Barbiturates,Ur NEG NEG-NEG MAIN LAB ine Comment: RESULTS WERE OBTAINED BY IMMUNOASSAY AND ARE PRESUMPTIVE ONLY. POSITIVE INDICATES THE PRESENCE OF SUBSTANCE WITH CHARACTERISTICS SIMILAR TO DRUG-DRUG CLASS OR METABOLITE IN CONC. EQUAL TO OR EXCEEDING VALUES LISTED. BARBITURATES 200 NG/ML Specimen Urine - Urine specimen (specimen) Performing Organization Address [facility] P gomez Number MAIN LAB [address] [place] [address] * (ABNORMAL) AMPHETAMINES-URINE RANDOM (09/29/2021 5:45 PM REEL REPAIRER) Amphetamines POS (A) NEG-NEG MAIN LAB Comment: RESULTS WERE OBTAINED BY IMMUNOASSAY AND ARE PRESUMPTIVE ONLY. POSITIVE INDICATES THE PRESENCE OF SUBSTANCE WITH CHARACTERISTICS SIMILAR TO DRUG-DRUG CLASS OR METABOLITE IN CONC. EQUAL TO OR EXCEEDING VALUES LISTED. AMPHETAMINES 1000 NG/ML Specimen Urine - Urine specimen (specimen) Performing Organization Address [facility] P gomez Number [facility] [address] [place] [address] * COVID-19 (SARS-COV-2) PCR (09/29/2021 3:40 AM REEL REPAIRER) COVID-19 FLOCKED SWAB [facility] (SARS-CoV-2) NASOPHARYNGEAL PCR Source COVID-19 NOT DETECTED DN-NOT DETECTED [facility] (SARS-CoV-2) Comment: PCR This assay is designed to detect the S and/or ORF1ab genes of SARS-CoV-2 using nucleic acid amplification. A "Not Detected" result does not preclude the possibility of SARS-CoV-2 infection since the adequacy of sample collection and/or low viral burden may result in the presence of viral nucleic acids below the analytical sensitivity of this test method. Test results should be used along with other clinical and laboratory data in making the diagnosis. Test parameters have not been validated for screening in asymptomatic patients.This test has not been FDA cleared or approved. This test is authorized for use under the FDA Emergency Use Authorization and performance characteristics have been verified by the [facility]. Fact sheet for providers: https://www.fda.gov/media/7253 85/download Fact sheet for patients: https://www.fda.gov/media/3211 87/download Specimen Flocked Swab - Nasopharyngeal structure (body structure) Performing Organization Address City/State/ZIP Code P gomez Number [facility] [address] [place] [address] * DIRECT EXAM (WET PREP) (09/29/2021 3:30 AM REEL REPAIRER) Battery Name DIRECT EXAM,WET PREP [facility] Report Status FINAL 09/29/2021 [facility] Specimen SWAB VAG[facility]AL MAIN LAB Description Special No special requests [facility] Requests Direct Exam NO YEAST SEEN [facility] Direct Exam Specimen inadequate for the [facility] AB evaluation of clue cells Direct Exam NO TRICHOMONAS SEEN [facility] Specimen Swab Performing Organization Address City/[facility] [[email or web address]] Code P gomez Number [facility] [address] [place] [address] * (ABNORMAL) CBC AND DIFF (09/29/2021 2:18 AM REEL REPAIRER) White Blood 6.3 4.5 - 11.0 K/UL [facility] Cells RBC 4.26 4.0 - 5.0 M/UL [facility] Hemoglobin 12.1 12.0 - 15.0 GM/DL [facility] Hematocrit 36.5 36 - 45 % [facility] MCV 85.7 80 - 100 FL [facility] MCH 28.5 26 - 34 PG [facility] MCHC 33.3 32.0 - 36.0 G/DL MAIN LAB RDW 12.8 11 - 15 % [facility] Platelet Count 450 (H) 150 - 400 K/UL [facility] MPV 8.2 7 - 11 FL [facility] Neutrophils 56 41 - 77 % [facility] Lymphocytes 30 24 - 44 % [facility] Monocytes 6 4 - 12 % [facility] Eosinophils 7 (H) 0 - 5 % [facility] Basophils 1 0 - 2 % [facility] Absolute 3.49 1.8 - 7.0 K/UL [facility] Neutrophil Count Absolute Lymph 1.85 1.0 - 4.8 K/UL [facility] Count Absolute 0.40 0 - 0.80 K/UL [facility] Monocyte Count Absolute 0.45 0 - 0.45 K/UL [facility] Eosinophil Count Absolute 0.06 0 - 0.20 K/UL [facility] Basophil Count MDW (Monocyte 19.5 <20.7 [facility] Distribution Comment: Width) MDW greater than 20.0, together with other laboratory and clinical information, aids in the diagnosis of sepsis or increased risk of sepsis within the first 12 hours of presenting to the emergency department. MDW should not be used as a sole test to determine the absence of sepsis. Clinical performance of the MDW has not been determined in patients receiving immune stimulants, patients with alcoholism, or patients with hematologic abnormalities such as blast cells. Specimen Blood (substance) Performing Organization Address City/State/ZIP Code P gomez Number [facility] [address] [place] [address] * COMPREHENSIVE METABOLIC PANEL (09/29/2021 2:18 AM REEL REPAIRER) Sodium 140 137 - 147 MMOL/L [facility] Potassium 4.2 3.5 - 5.1 MMOL/L [facility] Chloride 107 98 - 110 MMOL/L [facility] Glucose 94 70 - 100 MG/DL [facility] Blood Urea 16 7 - 25 MG/DL [facility] Nitrogen Creatinine 0.69 0.4 - 1.00 MG/DL [facility] Calcium 9.1 8.5 - 10.6 MG/DL [facility] Total Protein 6.4 6.0 - 8.0 G/DL [facility] Total Bilirubin 0.4 0.3 - 1.2 MG/DL [facility] Albumin 3.8 3.5 - 5.0 G/DL [facility] Alk Phosphatase 84 25 - 110 U/L [facility] AST (SGOT) 13 7 - 40 U/L [facility] CO2 22 21 - 30 MMOL/L [facility] ALT (SGPT) 22 7 - 56 U/L [facility] Anion Gap 11 3 - 12 [facility] eGFR Non >60 >60 mL/min [facility] Comment: [place] The eGFR is not validated f or use in drug dosing adjustments. Continue to use estimated creatinine clearance per dosing reference text. Please contact the Clinical Pharmacist for questions. eGFR >60 >60 mL/min [facility] [place] Comment: The eGFR is not validated for use in drug dosing adjustments. Continue to use estimated creatinine clearance per dosing reference text. Please contact the Clinical Pharmacist for questions. Specimen Blood (substance) Performing Organization Address City/State/ZIP Code P gomez Number [facility] [address] [place] [address] from Last 3 Months Insurance Type Payer Benefit Subscriber ID Effective Phone Address Plan / Dates Group AETNA MEDICAID AETNA [id number] 2021- [phone] [address] Present [id number] [place] [phone] Advance Directives Patient Sponsorship Coordinator Explanation Type Date Recorded Advance 09/28/2021 3:48 PM Directive/DPOA Date Inactivated Comments Code Status Date Activated 09/30/2021 3:06 PM Full Code 09/29/2021 5:08 AM Provider has discussed Code Status No, discussion no t w/Patient or Family? necessary based on Dx Care Teams Start Date End Date Power Nut Runner Operator Relationship Specialty 09/28/21 No Pcp, Na PCP - General
--- OUTSIDE RECORDS SUMMARY | 2021-11-26 06:02 | XMS REPORT | Encounter Summary ---
Author Author [facility] Organization [facility] Address Unknown Phone Unavailable Care Team Providers Care Property Utilization Officer Name Role Phone No Pcp, Na PCP Unavailable Reason for Visit * Reason Onset Date Comments Procedure urd Erroneous 11/06/2021 encounter-disregard Encounter Details Care Team Description Date Type Department Marcela King MD [address] [facility] [address] [address] ERRONEOUS ENCOUNTER--DISREGARD (Primary Dx) 10/11/2021 Procedure visit Urogynecology: [facility] [address] [place] [address] Social History Date Tobacco Use [...] at Date Recorded Female 11/24/2021 11:30 AM LINE TESTER Date Recorded COVID-19 Exposure Response 10/11/2021 11:34 AM LINE TESTER In the last month, have you been in contact with No / Unsure someone who was confirmed or suspected to have Coronavirus / COVID-19? documented as of this encounter Functional Status Date of Assessment Functional Status Response 09/29/2021 Does the patient have a hearing impairment: No documented as of this encounter Progress Notes * Marcela King MD - 10/11/2021 2:30 PM LINE TESTER This encounter was created in error. Please disregard. TESTER * Susan Noyola LPN - 10/11/2021 2:30 PM LINE TESTER Patient was not able to tolerate her URD. She was very emotional. She was in carolann n, and unable to relax. She thinks she waited too long and thought about her pro lapse and problems and became too emotional, she apologized profusely, but was u nable to tolerate the procedure. She will call tomorrow to be rescheduled. TESTER * Beth Pierre - 10/11/2021 2:30 PM LINE TESTER Pertinent Review of Systems: - General ROS: [...] the groin area and ot her sites TESTER documented in this encounter Plan of Treatment Care Team Description Date Type Specialty Marcela King MD [address] [facility] Lvl [address] [place] [id number] Encounter for screening laboratory testi ng for COVID-19 virus in asymptomatic patient 12/12/2021 Hospital Encounter Ney Mclain MD [address] [place] [address] [id number] [place], [place] [id number] 12/12/2021 Anesthesia Event Marcela King MD [address] [facility] Lvl [address] [place] [id number] ROBOT ASSISTED LAPAROSCOPIC SUPRACERVICA L HYSTERECTOMY WITH REMOVAL OF TUBE/ OVARY - UTERUS 250 G OR LESS 12/12/2021 Surgery Date/Time Name Priority Associated Diagnose s 12/12/2021 7:45 AM LINE TESTER ROBOT ASSISTED LAPAROSCOPIC Encounter for screening SUPRACERVICAL HYSTERECTOMY WITH REMOVAL laboratory testing for OF TUBE/ OVARY - UTERUS 250 G OR LESS COVID-19 viru s in asymptomatic patient 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, complete OAB (overactive bladder) Stress incontinence in female 12/12/2021 7:45 AM LINE TESTER ROBOT ASSISTED LAPAROSCOPIC COLPOPEXY Encounter for screening laboratory testing for COVID-19 virus in asymptomatic patient 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, complete OAB (overactive bladder) Stress incontinence in female 12/12/2021 7:45 AM LINE TESTER ABDOMINAL REPAIR OF ENTEROCELE Encounter for screen ing laboratory testing for COVID-19 virus in asymptomatic patient 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, complete OAB (overactive bladder) Stress incontinence in female 12/12/2021 7:45 AM LINE TESTER ANTERIOR COLPORRHAPHY AND REPAIR OF Encounter for s creening CYSTOCELE WITH/ WITHOUT URETHROCELE laboratory test ing for COVID-19 virus in asymptomatic patient 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, complete OAB (overactive bladder) Stress incontinence in female 12/12/2021 7:45 AM LINE TESTER POSTERIOR COLPORRHAPHY REPAIR OF Encounter for scre ening RECTOCELE WITH/ WITHOUT PERINEORRHAPHY laboratory t esting for COVID-19 virus in asymptomatic patient 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, complete OAB (overactive bladder) Stress incontinence in female 12/12/2021 7:45 AM LINE TESTER SLING OPERATION FOR STRESS INCONTINENCE Encounter f or screening laboratory testing for COVID-19 virus in asymptomatic patient 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, complete OAB (overactive bladder) Stress incontinence in female 12/12/2021 7:45 AM LINE TESTER CYSTOURETHROSCOPY Encounter for screening laboratory testing for COVID-19 virus in asymptomatic patient 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, complete OAB (overactive bladder) Stress incontinence in female 12/12/2021 7:45 AM LINE TESTER EXAM PELVIS UNDER ANESTHESIA Encounter for screenin g laboratory testing for COVID-19 virus in asymptomatic patient 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, complete OAB (overactive bladder) Stress incontinence in female documented as of this encounter Visit Diagnoses Diagnosis ERRONEOUS ENCOUNTER--DISREGARD - Primar y Encounter for screening laboratory test ing for COVID-19 virus in asymptomatic patient Pelvic relaxation due to uterovaginal p rolapse, complete Uterovaginal prolapse, complete OAB (overactive bladder) Hypertonicity of bladder Stress incontinence in female Female stress incontinence documented in this encounter Additional Health Concerns Noted Time Assessment 09/30/2021 8:20 AM LINE TESTER A fall risk assessment has been complet ed for the patient 10/11/2021 11:48 AM LINE TESTER PHQ-2 Depression Total Score: 0 documented as of this encounter Care Teams Start Date End Date Property Utilization Officer Relationship Specialty 09/28/21 No Pcp, Na PCP - General documented as of this encounter
--- OUTSIDE RECORDS SUMMARY | 2021-11-26 06:02 | XMS REPORT | Encounter Summary ---
Author Author [facility] Organization [facility] Address Unknown Phone Unavailable Care Team Providers Care Vrt Mechanic Name Role Phone No Pcp, Na PCP Unavailable Reason for Visit * Reason Onset Date Comments Results 10/18/2021 Encounter Details Care Team Description Date Type Department Hand, Sakina Sawyer PA-C [address] [facility] [address] [id number] Results 10/18/2021 Telephone Urogynecology: [facility] [place] [place] [address] [place] [address] Social History Date Tobacco Use [...] at Date Recorded Female 11/24/2021 11:30 AM DATA SUPPORT SPECIALIST Date Recorded COVID-19 Exposure Response 10/11/2021 11:34 AM DATA SUPPORT SPECIALIST In the last month, have you been in contact with No / Unsure someone who was confirmed or suspected to have Coronavirus / COVID-19? documented as of this encounter Functional Status Date of Assessment Functional Status Response 09/29/2021 Does the patient have a hearing impairment: No documented as of this encounter Miscellaneous Notes * Telephone Encounter - Alexandra Mckoy BSN - 10/18/2021 5:17 PM DATA SUPPORT SPECIALIST LM for pt to CB re: results. SUPPORT SPECIALIST * Telephone Encounter - Alexandra Mckoy BSN - 10/18/2021 5:17 PM DATA SUPPORT SPECIALIST ----- Message from Sakina Tilley PA-C sent at 10/14/2021 9:13 AM DATA SUPPORT SPECIALIST ----- Please contact pt with result - urine culture consistent with contamination. If not having UTI sx, no further culture needed. If having UTI sx, please place ord er for repeat culture with attention to clean catch process. It looks like from her chart she may need UDS rescheduled, so depending on when that is, we could w ait to collect sample then. SUPPORT SPECIALIST documented in this encounter Plan of Treatment Care Team Description Date Type Specialty Marcela King MD [address] [facility] Lvl [address] [place] [address] Encounter for screening laboratory testi ng for COVID-19 virus in asymptomatic patient 12/12/2021 Hospital Encounter Ney Mclain MD [address] [id number] [place] [address] 12/12/2021 Anesthesia Event Marcela King MD [address] [facility] Lvl [address] [place] [address] ROBOT ASSISTED LAPAROSCOPIC SUPRACERVICA L HYSTERECTOMY WITH REMOVAL OF TUBE/ OVARY - UTERUS 250 G OR LESS 12/12/2021 Surgery Date/Time Name Priority Associated Diagnose s 12/12/2021 7:45 AM DATA SUPPORT SPECIALIST ROBOT ASSISTED LAPAROSCOPIC Encounter for screening SUPRACERVICAL HYSTERECTOMY WITH REMOVAL laboratory testing for OF TUBE/ OVARY - UTERUS 250 G OR LESS COVID-19 viru s in asymptomatic patient 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, complete OAB (overactive bladder) Stress incontinence in female 12/12/2021 7:45 AM DATA SUPPORT SPECIALIST ROBOT ASSISTED LAPAROSCOPIC COLPOPEXY Encounter for screening laboratory testing for COVID-19 virus in asymptomatic patient 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, complete OAB (overactive bladder) Stress incontinence in female 12/12/2021 7:45 AM DATA SUPPORT SPECIALIST ABDOMINAL REPAIR OF ENTEROCELE Encounter for screen ing laboratory testing for COVID-19 virus in asymptomatic patient 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, complete OAB (overactive bladder) Stress incontinence in female 12/12/2021 7:45 AM DATA SUPPORT SPECIALIST ANTERIOR COLPORRHAPHY AND REPAIR OF Encounter for s creening CYSTOCELE WITH/ WITHOUT URETHROCELE laboratory test ing for COVID-19 virus in asymptomatic patient 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, complete OAB (overactive bladder) Stress incontinence in female 12/12/2021 7:45 AM DATA SUPPORT SPECIALIST POSTERIOR COLPORRHAPHY REPAIR OF Encounter for scre ening RECTOCELE WITH/ WITHOUT PERINEORRHAPHY laboratory t esting for COVID-19 virus in asymptomatic patient 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, complete OAB (overactive bladder) Stress incontinence in female 12/12/2021 7:45 AM DATA SUPPORT SPECIALIST SLING OPERATION FOR STRESS INCONTINENCE Encounter f or screening laboratory testing for COVID-19 virus in asymptomatic patient 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, complete OAB (overactive bladder) Stress incontinence in female 12/12/2021 7:45 AM DATA SUPPORT SPECIALIST CYSTOURETHROSCOPY Encounter for screening laboratory testing for COVID-19 virus in asymptomatic patient 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, complete OAB (overactive bladder) Stress incontinence in female 12/12/2021 7:45 AM DATA SUPPORT SPECIALIST EXAM PELVIS UNDER ANESTHESIA Encounter for screenin g laboratory testing for COVID-19 virus in asymptomatic patient 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, complete OAB (overactive bladder) Stress incontinence in female documented as of this encounter Visit Diagnoses Not on filedocumented in this encounter Additional Health Concerns Noted Time Assessment 09/30/2021 8:20 AM DATA SUPPORT SPECIALIST A fall risk assessment has been complet ed for the patient 10/11/2021 11:48 AM DATA SUPPORT SPECIALIST PHQ-2 Depression Total Score: 0 documented as of this encounter Care Teams Start Date End Date Vrt Mechanic Relationship Specialty 09/28/21 No Pcp, Na PCP - General documented as of this encounter
--- OUTSIDE RECORDS SUMMARY | 2021-11-26 06:02 | XMS REPORT | Encounter Summary ---
Author Author [facility] Organization [facility] Address Unknown Phone Unavailable Care Team Providers Care Dumper Operator Name Role Phone No Pcp, Na PCP Unavailable Reason for Visit * Reason Comments Vaginal Prolapse Hx pelvic prolapse, now hav ing more pain. LBTC d/t anxiety earlier prior to OBGYN consult, now here for consult. * Auth/Cert Diagnoses / Procedures Referred By Contact Referred To Conta ct Specialty Diagnoses Uterine procidentia Referral ID Status Reason Start Date Expiration Visits Vi sits Date Requested Authorized [id number] 1 1 Encounter Details Care Team Description Date Type Department Diane Garcia MD [address] [place] [address] Kasey Velasquez MD [address] [place], [place] [id number] Pelvic relaxation due to uterovaginal pr olapse, complete 09/28/2021 Emergency Patient Care Unit B H56: - [facility], Main 09/30/2021 Hospital [address] [facility] Level [address] [place] [address] Social History Date Tobacco Use [...] at Date Recorded Female 11/24/2021 11:30 AM MEDICAL TYPIST Date Recorded COVID-19 Exposure Response 09/28/2021 2:59 PM MEDICAL TYPIST In the last month, have you been in contact with No / Unsure someone who was confirmed or suspected to have Coronavirus / COVID-19? documented as of this encounter Last Filed Vital Signs Reading Time Taken Comments Vital Sign 122/72 09/30/2021 12:52 PM MEDICAL TYPIST Blood Pressure 84 09/29/2021 10:55 PM MEDICAL TYPIST Pulse 36.6 C (97.8 F) 09/30/2021 12:52 PM MEDICAL TYPIST Temperature - - Respiratory Rate 97% 09/30/2021 12:52 PM MEDICAL TYPIST Oxygen Saturation - - Inhaled Oxygen Concentration 68 kg (150 lb) 09/28/2021 8:26 PM MEDICAL TYPIST Weight - - Height - - Body Mass Index documented in this encounter Functional Status Date of Assessment Functional Status Response 09/29/2021 Does the patient have a hearing impairment: No documented as of this encounter Discharge Summaries * Marlyn Espinoza MD - 09/30/2021 1:02 PM MEDICAL TYPIST Discharge Summary Name: Neena Walden Date Of : 1980 Age: 41 years Admit date: 09/28/2021 Discharge date: 09/30/21 Discharge Attending: Violette Benavides MD Discharge Summary Completed By: Marlyn Espinoza MD Service: Gynecology Reason for hospitalization: 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 Allergies Patient has no known allergies. Brief Hospital Course The patient was admitted and the following issues were addressed during this hos pitalization: (with pertinent details including admission exam/imaging/labs). Los acosta was admitted from the ED due to Stage 4 uterovaginal prolapse that was un able to be reduced. Patient continued to void and had normal creatinine testing so no Valenzuela catheter was placed. She ultimately underwent reduction of her prola pse and pessary fitting at bedside with IV pain and anxiety medications. A Gellh orn 3.25 pessary was placed and the patient tolerated this well. She will be see n in the Urogynecology clinic after discharge for surgical planning. Items Needing Follow Up Pending items or areas that need to be addressed at follow up: surgical planning Pending Labs and Follow Up Radiology Pending labs and/or radiology review at this time of discharge are listed below: if this area is blank, there are no items for review. Pending Labs Order Current Status UA REFLEX LABEL In process Medications Medication List CONTINUE taking these medications amoxicillin-potassium clavulanate 875/125 mg tablet; Commonly known as: AUGMENTIN; Dose: 1 tablet; Refills: 0 Return Appointments and Scheduled Appointments Scheduled appointments: Jan 16, 2022 8:15 AM Office visit with Violette Benavides MD Urogynecology: [facility] (CREDIT COLLECTION SPECIAL[facility] [address] [facility] [address] Consults, Procedures, Diagnostics, Micro, Pathology Consults: None Surgical Procedures & Dates: None Significant Diagnostic Studies, Micro and Procedures: noted in brief hospital co urse Significant Pathology: none Nutrition: No Dietitian Consult Discharge Disposition, Condition Patient Disposition: Home Condition at Discharge: Stable Code Status Code Status History Date Active Date Inactive Code Status Order ID 09/29/2021 [id number] 09/30/2021 1506 Full Code [id number] Alicia Driver MD E D Patient Instructions Regular Diet You have no dietary restriction. Please continue with a healthy balanced diet. Report These Signs and Symptoms Please contact your doctor if you have any of the following symptoms: temperatu re higher than 100.4 degrees F, uncontrolled pain, persistent nausea and/or vomi ting, difficulty breathing, chest pain, severe abdominal pain, headache, unable to urinate, unable to have bowel movement, or drainage with a foul odor Questions About Your Stay For questions or concerns regarding your hospital stay, call [phone]. Discharging attending physician: VIOLETTE BENAVIDES [[id number]] Activity as Tolerated It is important to keep increasing your activity level after you leave the hosp ital. Moving around can help prevent blood clots, lung infection (pneumonia) an d other problems. Gradually increasing the number of times you are up moving ar ound will help you return to your normal activity level more quickly. Continue to increase the number of times you are up to the chair and walking daily to ret urn to your normal activity level. Begin to work toward your normal activity lev el at discharge Additional Discharge Instructions FOLLOW UP APPOINTMENTS Your follow-up appointment will be scheduled. You will receive a phone call with the date and time of your appointment. The address for the office is [address] [facility] [place] [address]. The Urogynecology clinic is located on the fifth floor of the building, [address]. Your appointment will be with Dr. King. TO REACH A PHYSICIAN: IF YOU NEED TO REACH DR. BENAVIDES DURING BUSINESS HOURS: IF YOU NEED TO REACH A PHYSICIAN AFTER HOURS or ON THE WEEKEND CALL THE HOSPITAL : OR PAGE DR. BENAVIDES DIRECTLY: . IF YOU DO NOT HEA R BACK WITHIN 30 MINUTES, PLEASE CALL . WHEN TO CALL THE OFFICE ONCE YOU ARE HOME FROM THE HOSPITAL If you have an urgent problem after hours do not hesitate to call. Routine calls should be placed to our office during regular business hours (8:00 AM to 5:00 P M). You should receive a call back the same day for most calls received by 3:00 PM. You should call our office and talk with one of the nurses if you notice any of the following: Fever (your temperature is 100F twice in a row, or if your temperature is 101 F or higher one time) Pain that is not relieved by narcotic pain medication Heavy vaginal bleeding (which soaks two or more maxi pads in one hour) Vaginal discharge which has an unpleasant odor Additional Orders: Case Management, Supplies, Home Health Home Health/DME None Signed: Marlyn Espinoza MD 10/03/2021 cc: Primary Care Physician: No Pcp, Na No PCP Referring physicians: No ref. provider found Additional provider(s): Did we miss something? If additional records are needed, please fax a request on office letterhead to [phone]. Please include the patient's name, date of b irth, fax number and type of information needed. Additional request can be made by email at [email or web address]. For general questions of information about electronic records sharing, call [phone]. CAL TYPIST documented in this encounter Medications at Time of Discharge Start Date End Date Medication Sig Dispensed Refills 11/25/2021 amoxicillin-potassium Take 1 tablet 0 clavulanate (AUGMENTIN) by mouth 875/125 mg tablet every 12 hours. Take with food. documented as of this encounter Discharge Disposition Code Departure Means Destination Disposition Walk-out Home or Self Care documented in this encounter Progress Notes * Angelica Soares RN - 09/30/2021 1:04 PM MEDICAL TYPIST 13:02: pt discharged at this time. When entering room to remove PIV pt states sh rina has removed her own PIV and "is ready to leave". RN verified PIV was removed. Discharged instructions given on follow up appointment and medications. Pt kymberly lombardoes understanding and denies any further questions at this time. CAL TYPIST * Marlyn Espinoza MD - 09/30/2021 5:55 AM MEDICAL TYPIST Gynecology Progress Note Subjective: Patient is without complaints, has been NPO since midnight. Had a bowel movement last night. Objective: Patient Vitals for the past 24 hrs: BP Temp Pulse SpO2 09/29/21 2255 108/52 36.8 C (98.2 F) 84 100 % 09/29/21 2002 123/74 36.8 C (98.2 F) 99 100 % 09/29/21 1650 98/59 36.5 C (97.7 F) 78 100 % 09/29/21 1211 105/62 36.6 C (97.9 F) 81 99 % 09/29/21 0831 98/58 36.5 C (97.7 F) 83 97 % Physical Exam: General: No acute distress. Heart: Regular rate and rhythm. Lungs: Normal effort Abdomen: Soft, non-tender to palpation. Non-distended. : complete prolapse of vagina, cervix, and uterus, no sin lesions present, tis tanner noted to be dry Extremities: No edema BL LE. NTTP. Lab Review: 24-hour labs: Results for orders placed or performed during the hospital encounter of 09/28/21 (from the past 24 hour(s)) URINALYSIS DIPSTICK REFLEX TO CULTURE Collection Time: 09/29/21 5:45 PM Specimen: Urine Result Value Ref Range Color,UA STRAW Turbidity,UA CLEAR CLEAR-CLEAR Specific [place]-Urine 1.005 1.005 - 1.030 pH,UA 7.0 5.0 - 8.0 Protein,UA NEG NEG-NEG Glucose,UA NEG NEG-NEG Ketones,UA NEG NEG-NEG Bilirubin,UA NEG NEG-NEG Blood,UA 2+ (A) NEG-NEG Urobilinogen,UA NORMAL NORM-NORMAL Nitrite,UA NEG NEG-NEG Leukocytes,UA NEG NEG-NEG Urine Ascorbic Acid, UA NEG NEG-NEG URINALYSIS MICROSCOPIC REFLEX TO CULTURE Collection Time: 09/29/21 5:45 PM Specimen: Urine Result Value Ref Range WBCs,UA 0-2 0 - 2 /HPF RBCs,UA 0-2 0 - 3 /HPF Comment,UA Criteria for reflex to culture are WBC>10, Positive Nitrite, and/or >=+1 leukocytes. If quantity is not sufficient, an addendum will follow. Squamous Epithelial Cells 0-2 0 - 5 AMPHETAMINES-URINE RANDOM Collection Time: 09/29/21 5:45 PM Result Value Ref Range Amphetamines POS (A) NEG-NEG BARBITURATES-URINE RANDOM Collection Time: 09/29/21 5:45 PM Result Value Ref Range Barbiturates,Urine NEG NEG-NEG BENZODIAZEPINES-URINE RANDOM Collection Time: 09/29/21 5:45 PM Result Value Ref Range Benzodiazepines NEG NEG-NEG CANNABINOIDS-URINE RANDOM Collection Time: 09/29/21 5:45 PM Result Value Ref Range THC NEG NEG-NEG COCAINE-URINE RANDOM Collection Time: 09/29/21 5:45 PM Result Value Ref Range Cocaine-Urine NEG NEG-NEG OPIATES-URINE RANDOM Collection Time: 09/29/21 5:45 PM Result Value Ref Range Opiates-Urine NEG NEG-NEG PHENCYCLIDINES-URINE RANDOM Collection Time: 09/29/21 5:45 PM Result Value Ref Range Phencyclidine (PCP) NEG NEG-NEG THIN PREP HOLD LABEL Collection Time: 09/30/21 7:00 AM Result Value Ref Range THIN PREP HOLD RECEIVED Intake/Output Summary (Last 24 hours) at 09/30/2021 0575 Last data filed at 09/29/2021 1745 Gross per 24 hour Intake 680 ml Output 360 ml Net 320 ml Pessary fitting Patient was taken to the examination room and received 0.5 mg of dilaudid and 0. 5 mg of Ativan. She was placed in the dorsal lithotomy position. A Pap smear was obtained from the prolapsed cervix. The prolapsed tissue was covered in a lubri cant and was reduced back inside the body. Once the prolapse had been successful ly reduced a 3 1/4 Gellhorn pessary was placed. She was asked to valsalva, ambul ate in the room and sit on the toilet and strain and the pessary was not expelle d. She reports that the pessary is comfortable. The patient tolerated the proced ure well. Assessment/Plan: 41 y.o. with Stage 4 uterovaginal prolapse Stage 4 uterovaginal prolapse -prolapse successfully reduced at bedside, no need for EUA -Gellhorn 3 1/4 pessary fitted, will remain in place upon discharge -patient given Trimosan gel for intravaginal use while pessary is in place -patient will be scheduled for an appointment in Dr. King clinic next week, w e will notify patient of time and place for her appointment. She will undergo ur odynamic testing and pre-operative consultation at that visit Cervical cancer screening -Pap smear collected today for routine screening, will follow up results Dispo: patient was able to void after placement of her pessary, will discharge h ome today D/w Dr. Makayla Espinoza MD PGY-2 Obstetrics and Gynecology Please Voalte Me or page the Gynecology pager at [phone] with any questions or conc erns. Thank you. CAL TYPIST Associated attestation - Violette Benavides MD - 09/30/2021 9:32 AM MEDICAL TYPIST ATTESTATION I personally performed the vernon portions of the E/M visit, discussed case with re sident and concur with resident documentation of history, physical exam, assessm ent, and treatment plan unless otherwise noted. Examination with Stage 4 uterovaginal prolapse. After reduction of vaginal prola pse, genital hiatus measured approximately 5cm at rest, normal-appearing labia m ajora and minora bilaterally. Once pessary placed, patient had urge to void and was able to void without difficulty with the pessary in place. Reviewed self-car e with the pessary, counseled patient to keep pessary in place until follow up v scotty. Staff name: Violette Benavides MD Date: 09/30/2021 * Marlyn Espinoza MD - 09/29/2021 7:32 PM MEDICAL TYPIST Update Note Presented to patient's room to discuss plan of care. Patient's case has been di scussed extensively with Dr. Benavides and Dr. King from the urogynecology depa rtment. Ultimately the plan is for surgical repair of the patient's stage IV ut erovaginal prolapse, however this surgery cannot be done emergently due to the p reop planning that is necessary. We will plan on attempting a pessary placement in the morning with medications available for pain and anxiety. If we are unab le to place the pessary or reduce the prolapse, the patient is scheduled for an add on EUA that will likely occur tomorrow afternoon. Patient will be n.p.o. at midnight tonight in anticipation of possible EUA tomorrow. Patient will discha rge home tomorrow after placement of pessary and she will have an appointment in the clinic with Dr. King next week for preoperative planning. The patient w ill likely be able to undergo definitive surgery within the next 1 to 2 months. Discussed with patient that the surgery will likely restore the normal anatomy of the vagina. Until she is able to have surgery, we will attempt a pessary and she will receive a topical medication while the pessary is in place to help wit h any discharge or odor. D/w Dr. Makayla Espinoza MD PGY2 - Obstetrics & Gynecology CAL TYPIST * Arleth Perkins RN - 09/29/2021 9:06 AM MEDICAL TYPIST Pt very anxious, tearful. Pt stated she voids frequent, small amounts all day l dandre to help avoid infection. Pt stated she can only stand for about 5 minutes c omfortable otherwise she gets uncomfortable and starts to bleed vaginally more. CAL TYPIST documented in this encounter Consult Notes * Vanessa Rashid MD - 09/29/2021 2:46 AM MEDICAL TYPIST Associated Order(s): CONSULT MANAGER COMMERCIAL SALES PHYSCIAN Gynecology Consult History and Physical Examination Neena Walden Admission Date: 09/28/2021 Assessment: 41 y.o. presenting to the ED for uterine prolapse with associated obstructi ve voiding symptoms. Patient describes decreased quality of life and difficulty finding a doctor to help her manage this problem. Plan: Stage 4 uterine prolapse: -Given patient's level of distress and associated symptoms including urinary dys runction, will admit for expedited Urogyn evaluation -ED Labs pending: UA, CBC w/ diff, CMP -Wet prep collected, f/u results -Will obtain UDS for preoperative planning. Patient consents. D/w Dr. Ron Fabian MD PGY-1 Obstetrics & Gynecology Please page the Gynecology pager at [phone] with any questions or concerns. Thank you for allowing us to participate in the care of your patient. Reason for Consult: Uterine prolapse with concern for developing urinary dysfun ction History of Present Illness: Neena Walden is a 41 y.o. presenting to the ED for symptoms associat ed with uterine prolapse. She states she has had known prolapse for around one y ear, initially described as a small bulge that did not cause her any associated symptoms. Over the past year, this has worsened to the point of protrusion of th e entire uterus from the vagina, which the patient states can no longer be reduc ed back into place. She has tried pessaries in the past, but states that the jennifer ure of her prolapse no longer allows for pessary placement. 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 She has been wearing diapers due to bleeding and di scharge associated with her prolapse, and states she feels the need to shower fr equently. She has not been able to be sexually active in over a year. She additi onally describes discomfort with sitting or standing for prolonged periods, and has difficulty working and functioning normally. She is very distressed by her s ymptoms and states that she has developed considerable depression and anxiety. 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 PsHx: No past surgical history on file. FmHx: No family history on file. Social: Current tobacco and occasional EtOH use. Prior history of polysubstance use. Allergies: Patient has no known allergies. Medications: No current facility-administered medications on file prior to encounter. No current outpatient medications on file prior to encounter. Physical Exam: Vitals: 09/28/21202509/29/21 0000 09/29/21 0030 09/29/21 0130 BP: 118/72 113/72 111/80 103/73 BP Source: Arm, Right Upper Temp: 36.8 C (98.2 F) SpO2: 100% 98% 99% 99% Weight: 68 kg (150 lb) Gen: NAD, intermittently tearful during history CV: RRR, no appreciable murmurs Chest: Unlabored, CTAB Ext: No LE edema, nttp LE : Stage 4 apical prolapse immediately visualized. Unable to reduce manually. Lab/Radiology/Other Diagnostic Tests: 24-hour labs: No results found for this visit on 09/28/21 (from the past 24 gabe r(s)). Point of Care Testing: CAL TYPIST Associated attestation - Kasey Velasquez MD - 09/29/2021 6:10 AM MEDICAL TYPIST I was present for resident history and physical exam. Procidentia is large and p atient with too much discomfort to tolerate any attempt at reduction. She is now having difficulty with voiding, cannot tell if she has to urinate or not and is very distressed by this. Recommend admission and appreciate urogynecology consu ltation for recommenations. Kasey Velasquez MD documented in this encounter ED Notes * Diane Garcia MD - 09/29/2021 1:59 AM MEDICAL TYPIST Neena Walden is a 41 y.o. female. Chief Complaint: Chief Complaint Patient presents with Vaginal Prolapse Hx pelvic prolapse, now having more pain. LBTC d/t anxiety earlier prior to PANEL GLUER consult, now here for consult. History of Present Illness: Patient is a 41-year-old female with history of uterine prolapse presenting to e mergealy department for uterine prolapse. Patient reports she has been uterine prolapse 5-year ago which was able to be reduced that time. She reports she has tried pelvic floor physical therapy exercises and pessaries which been unsucces sful. She reports the pain is significantly increased over the last few weeks h as been associated with bleeding. Patient is very tearful and anxious on exam, noting this is made her life very difficult and does not have a good quality of life at this point. She reports she has a shower very frequently, wear special underwear, unable to have intercourse with her boyfriend, difficulty urinating a t times, pain with sitting but also pain with walking. Patient denies ever havi ng UTI or difficulty with bowel movements. Patient does note occasional lower a bdominal pain but denies fevers, chills, dizziness, chest pain, nausea, vomiting , weakness. Patient notes she recently got health insurance 2 weeks ago and is now presentin for worsening pain and further treatment options. Review of Systems: Review of Systems Constitutional: Negative for chills, fatigue and fever. HENT: Negative for congestion and sore throat. Eyes: Negative for visual disturbance. Respiratory: Negative for cough and shortness of breath. Cardiovascular: Negative for chest pain and palpitations. Gastrointestinal: Positive for abdominal pain. Negative for abdominal distention and nausea. Endocrine: Negative for polyuria. Genitourinary: Positive for difficulty urinating and vaginal bleeding. Negative for dysuria. Musculoskeletal: Negative for back pain and neck pain. Skin: Negative for rash. Neurological: Negative for dizziness, light-headedness and headaches. Psychiatric/Behavioral: Negative for agitation. The patient is nervous/anxious. Allergies: Patient has no known allergies. Past Medical History: No past medical history on file. Past Surgical History: No past surgical history on file. Pertinent medical/surgical history reviewed Social History: Social History Tobacco Use Smoking status: Current Every Day Smoker Packs/day: 0.50 Types: Cigarettes Substance Use Topics Alcohol use: Yes Comment: occ Drug use: Not Currently Social History Substance and Sexual Activity Drug Use Not Currently Family History: No family history on file. Vitals: ED Vitals Date and Time T BP P RR SPO2P SPO2 User 09/29/21 0130 -- 103/73 -- -- 77 99 % CN 09/29/21 0030 -- 111/80 -- -- 72 99 % CN 09/29/21 0000 -- 113/72 -- -- 77 98 % CN 09/28/212025 36.8 C (98.2 F) 118/72 -- 16 PER MINUTE 98 100 % RH Physical Exam: Physical Exam Vitals and nursing note reviewed. Exam conducted with a plodding operator present. Constitutional: Appearance: Normal appearance. HENT: Head: Normocephalic and atraumatic. Mouth/Throat: Mouth: Mucous membranes are moist. Pharynx: Oropharynx is clear. No oropharyngeal exudate. Eyes: Extraocular Movements: Extraocular movements intact. Conjunctiva/sclera: Conjunctivae normal. Pupils: Pupils are equal, round, and reactive to light. Cardiovascular: Rate and Rhythm: Normal rate and regular rhythm. Pulses: Normal pulses. Heart sounds: Normal heart sounds. No murmur heard. No gallop. Pulmonary: Effort: Pulmonary effort is normal. No respiratory distress. Breath sounds: Normal breath sounds. No wheezing. Abdominal: General: Abdomen is flat. There is no distension. Palpations: Abdomen is soft. Tenderness: There is no abdominal tenderness. Genitourinary: Cervix: Cervical bleeding present. Uterus: With uterine prolapse. Musculoskeletal: General: No swelling or tenderness. Normal range of motion. Cervical back: Normal range of motion and neck supple. No tenderness. Skin: General: Skin is warm and dry. Capillary Refill: Capillary refill takes less than 2 seconds. Neurological: General: No focal deficit present. Mental Status: She is alert and oriented to person, place, and time. Mental s tatus is at baseline. Psychiatric: Mood and Affect: Affect is tearful. Judgment: Judgment normal. Laboratory Results: Labs Reviewed CBC AND DIFF - Abnormal Result Value Ref Range Status White Blood Cells 6.3 4.5 - 11.0 K/UL Final RBC 4.26 4.0 - 5.0 M/UL Final Hemoglobin 12.1 12.0 - 15.0 GM/DL Final Hematocrit 36.5 36 - 45 % Final MCV 85.7 80 - 100 FL Final MCH 28.5 26 - 34 PG Final MCHC 33.3 32.0 - 36.0 G/DL Final RDW 12.8 11 - 15 % Final Platelet Count 450 (*) 150 - 400 K/UL Final MPV 8.2 7 - 11 FL Final Neutrophils 56 41 - 77 % Final Lymphocytes 30 24 - 44 % Final Monocytes 6 4 - 12 % Final Eosinophils 7 (*) 0 - 5 % Final Basophils 1 0 - 2 % Final Absolute Neutrophil Count 3.49 1.8 - 7.0 K/UL Final Absolute Lymph Count 1.85 1.0 - 4.8 K/UL Final Absolute Monocyte Count 0.40 0 - 0.80 K/UL Final Absolute Eosinophil Count 0.45 0 - 0.45 K/UL Final Absolute Basophil Count 0.06 0 - 0.20 K/UL Final MDW (Monocyte Distribution Width) 19.5 <20.7 Final DIRECT EXAM (WET PREP) Battery Name DIRECT EXAM,WET PREP Report Status PRELIMINARY 09/29/2021 Specimen Description SWAB VAGINAL Special Requests No special requests Direct Exam NO YEAST SEEN Direct Exam Value: Specimen inadequate for the evaluation of clue cells Direct Exam NO TRICHOMONAS SEEN URINALYSIS DIPSTICK REFLEX TO CULTURE URINALYSIS MICROSCOPIC REFLEX TO CULTURE UA REFLEX LABEL Radiology Interpretation: No orders to display EKG: ED Course: Patient was roomed and placed on monitor. History obtained and physical exam performed. Patient is a 41-year-old female presenting for uterine prolapse. Based on degree of uterine prolapse on exam and decreased quality of life, gynec ology was consulted while labs are pending. Gynecology presented to the ED for evaluation, did wet prep, planning to admit for expedited evaluation and treatme nt. Labs show with thrombocytosis otherwise unremarkable CBC, CMP. All results discussed with patient and family at bedside. After shared decision making, patient is in understanding and agreement for admission. All questions a nswered, no further concerns at this time. Patient discussed with gynecology who will admit. Dispo: admit to Travel Accommodation Inspector ED Scoring: Coding Facility Administered Meds: Medications - No data to display Clinical Impression: Clinical Impression Uterine prolapse Disposition/Follow up ED Disposition ED Disposition Admit No follow-up provider specified. Medications: New Prescriptions No medications on file Procedure Notes: Procedures Attestation / Supervision: Herbie Ward MD Emergency Medicine, PGY 1 Voalte Preferred Attestation / Supervision Note concerning Neena Walden: I personally perform ed the vernon portions of the E/M visit, discussed case with resident and concur wi resident documentation of history, physical exam, assessment, and treatment p merary unless otherwise noted. Diane Garcia MD CAL TYPIST * Melissa Bella, RN - 09/29/2021 12:27 AM MEDICAL TYPIST 41 y/o female presents to ED w/cc of prolapsed vagina X1yr. Pt presented to [facility] for same concern but left due to anxiety. Pt returned because she drove here f [facility] and states she needs to stay to fix the problem now that she has the money. Pt states she has has been evaluated by [facility] in [place] and another h sp in [place] but was turned away due to insurance problems. Pt states the prol apse has not caused any problems with urination or bowel movements, but takes fr equent showers to keep her pelvic area clean. Pt states the concern has caused h er a lot of anxiety. Pt respirations even and unlabored, bed locked in lowest po sition, AOX4. Belongings: Shirt Pants Shoes Phone CAL TYPIST documented in this encounter Miscellaneous Notes * Care Plan - Angelica Soares RN - 09/30/2021 9:29 AM MEDICAL TYPIST Problem: Discharge Planning Goal: Participation in plan of care Outcome: Goal Ongoing Note: POC reviewed with pt. Pt verbalizes understanding and denies further quest ions at this time. This RN will continue to assess and provide intervention as n eeded. Goal: Knowledge regarding plan of care Outcome: Goal Ongoing Goal: Prepared for discharge Outcome: Goal Ongoing Problem: Anxiety Goal: Alleviation of anxiety Outcome: Goal Ongoing Note: No anxiety present at this time. This RN will continue to assess. Problem: Pain Goal: Management of pain Outcome: Goal Ongoing Note: No pain present at this time. This RN will continue to assess. Goal: Knowledge of pain management Outcome: Goal Ongoing Problem: Goal: Effective breast-feeding Outcome: Goal Ongoing Goal: Able to breast-feed without pain Outcome: Goal Ongoing Goal: Knowledge of breast-feeding Outcome: Goal Ongoing Problem: Labor Goal: Labor duration, first stage, within specified parameters Outcome: Goal Ongoing Goal: Labor duration, second stage, within specified parameters Outcome: Goal Ongoing Goal: Uterine contraction within specified parameters Outcome: Goal Ongoing Problem: Maternal Injury, Risk of Goal: Absence of physical injury Outcome: Goal Ongoing Goal: Absence of hemorrhage signs and symptoms Outcome: Goal Ongoing Problem: Parent- Attachment, Risk of, Impaired Goal: Knowledge of parental-infant bonding Outcome: Goal Ongoing Problem: Skin Integrity Goal: Skin integrity intact Outcome: Goal Ongoing Goal: Healing of skin (Wound & Incision) Outcome: Goal Ongoing Goal: Healing of skin (Pressure Injury) Outcome: Goal Ongoing Problem: Infection, Risk of, Surgical Site Infection Goal: Absence of surgical site infection Outcome: Goal Ongoing Problem: OB Oxytocin Labor Induction/Augmentation Goal: Management of Uterine Contractions Outcome: Goal Ongoing Goal: Monitor/Support and Maternal Well Being Outcome: Goal Ongoing Problem: Magnesium Sulfate Infusion Goal: Management of Magnesium Sulfate Outcome: Goal Ongoing Goal: Decrease Risk of Injury Outcome: Goal Ongoing CAL TYPIST documented in this encounter Plan of Treatment Care Team Description Date Type Specialty Marcela King MD [address] [facility] [address] [address] Encounter for screening laboratory testi ng for COVID-19 virus in asymptomatic patient 12/12/2021 Hospital Encounter Ney Mclain MD [address] [place] [address] 12/12/2021 Anesthesia Event Marcela King MD [address] [facility] [address] [place] [address] ROBOT ASSISTED LAPAROSCOPIC SUPRACERVICA L HYSTERECTOMY WITH REMOVAL OF TUBE/ OVARY - UTERUS 250 G OR LESS 12/12/2021 Surgery Date/Time Name Priority Associated Diagnose s 12/12/2021 7:45 AM MEDICAL TYPIST ROBOT ASSISTED LAPAROSCOPIC Encounter for screening SUPRACERVICAL HYSTERECTOMY WITH REMOVAL laboratory testing for OF TUBE/ OVARY - UTERUS 250 G OR LESS COVID-19 viru s in asymptomatic patient 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, complete OAB (overactive bladder) Stress incontinence in female 12/12/2021 7:45 AM MEDICAL TYPIST ROBOT ASSISTED LAPAROSCOPIC COLPOPEXY Encounter for screening laboratory testing for COVID-19 virus in asymptomatic patient 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, complete OAB (overactive bladder) Stress incontinence in female 12/12/2021 7:45 AM MEDICAL TYPIST ABDOMINAL REPAIR OF ENTEROCELE Encounter for screen ing laboratory testing for COVID-19 virus in asymptomatic patient 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, complete OAB (overactive bladder) Stress incontinence in female 12/12/2021 7:45 AM MEDICAL TYPIST ANTERIOR COLPORRHAPHY AND REPAIR OF Encounter for s creening CYSTOCELE WITH/ WITHOUT URETHROCELE laboratory test ing for COVID-19 virus in asymptomatic patient 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, complete OAB (overactive bladder) Stress incontinence in female 12/12/2021 7:45 AM MEDICAL TYPIST POSTERIOR COLPORRHAPHY REPAIR OF Encounter for scre ening RECTOCELE WITH/ WITHOUT PERINEORRHAPHY laboratory t esting for COVID-19 virus in asymptomatic patient 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, complete OAB (overactive bladder) Stress incontinence in female 12/12/2021 7:45 AM MEDICAL TYPIST SLING OPERATION FOR STRESS INCONTINENCE Encounter f or screening laboratory testing for COVID-19 virus in asymptomatic patient 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, complete OAB (overactive bladder) Stress incontinence in female 12/12/2021 7:45 AM MEDICAL TYPIST CYSTOURETHROSCOPY Encounter for screening laboratory testing for COVID-19 virus in asymptomatic patient 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, complete OAB (overactive bladder) Stress incontinence in female 12/12/2021 7:45 AM MEDICAL TYPIST EXAM PELVIS UNDER ANESTHESIA Encounter for screenin g laboratory testing for COVID-19 virus in asymptomatic patient 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, complete OAB (overactive bladder) Stress incontinence in female documented as of this encounter Procedures Comments Procedure Name Priority Date/Time Associated Diag nosis CYTOLOGY PAP SMEAR Routine 09/30/2021 SCREENING 8:00 AM MEDICAL TYPIST THIN PREP HOLD LABEL Routine 09/30/2021 7:00 AM MEDICAL TYPIST UA REFLEX LABEL STAT 09/29/2021 5:45 PM MEDICAL TYPIST URINALYSIS MICROSCOPIC STAT 09/29/2021 REFLEX TO CULTURE 5:45 PM MEDICAL TYPIST HC URINALYSIS UAR STAT 09/29/2021 5:45 PM MEDICAL TYPIST HC PHENCYCLIDINES; QUAL STAT 09/29/2021 5:45 PM MEDICAL TYPIST HC OPIATES; QUAL STAT 09/29/2021 5:45 PM MEDICAL TYPIST HC COCAINE; QUAL STAT 09/29/2021 5:45 PM MEDICAL TYPIST HC CANNABINOIDS; QUAL STAT 09/29/2021 5:45 PM MEDICAL TYPIST HC BENZODIAZEPINES, QUAL STAT 09/29/2021 5:45 PM MEDICAL TYPIST HC BARBITURATES STAT 09/29/2021 5:45 PM MEDICAL TYPIST HC AMPHETAMINES QUAL, STAT 09/29/2021 URINE 5:45 PM MEDICAL TYPIST COVID-19 (SARS-COV-2) PCR Routine 09/29/2021 3:40 AM MEDICAL TYPIST DIRECT EXAM (WET PREP) Routine 09/29/2021 3:30 AM MEDICAL TYPIST HC CBC W/ AUTOMATED DIFF STAT 09/29/2021 2:18 AM MEDICAL TYPIST HC COMPREHENSIVE STAT 09/29/2021 METABOLIC PANEL 2:18 AM MEDICAL TYPIST documented in this encounter Results * CYTOLOGY PAP SMEAR SCREENING (09/30/2021 8:00 AM MEDICAL TYPIST) Cytology [facility] [email or web address] Department of Pathology and Laboratory Medicine [address] [place] [id number]. Office: [phone] CYTOLOGY REPORT NAME: NEENA WALDEN CYTOLOGY #: [id number] MR #: [id number] ALT ID #: BILLING #: [id number] LOCATION: 56 DATE OF PROCEDURE: 09/30/2021 08:00 AGE: 41 SEX: F DATE RECEIVED: 10/03/2021 : 1980 TIME RECEIVED: 14:00 PHYSICIAN: MARLYN ESPINOZA MD DATE OF REPORT: 10/05/2021 COPY TO: [...] testing results. As a part of our quality assurance monitor final program, this case has been rescreened by a promotions specialist. Comment HPV, High Risk: Negative HOLOMy eShoe Gen-Probe APTIMA HR-HPV Assay is a FDA [...] Department of Pathology and Laboratory Medicine at [facility] using ufindads Gen-Probe [place] System. The primary screening of this case is performed at the [facility], [facility], [address] [place] [address]. Attestation: By this signature, I attest that [...] with history and clinical findings. Reported using Wann System terminology. Technical component performed by the [facility] at [address] [place] [address]. CLIA # [id number]. Professional component performed by [facility] ([facility]) at [address] [place] [address]. CLIA # [id number]. Technical component performed by the [facility] at [address] [place] [address]. CLIA # [id number]. Professional component performed by [facility] ([facility]) at [address] [place] [address]. CLIA # [id number]. Specimen Cervix uteri structure (body structure) Performing Organization Address City/State/ZIP Code P gomez Number [facility] [address] [place] [address] * THIN PREP HOLD LABEL (09/30/2021 7:00 AM MEDICAL TYPIST) THIN PREP HOLD RECEIVED MAIN LAB Specimen Performing Organization Address City/[facility]/ZIP Code P gomez Number MAIN LAB [address] [place] [address] * PHENCYCLIDINES-URINE RANDOM (09/29/2021 5:45 PM MEDICAL TYPIST) Phencyclidine NEG NEG-NEG MAIN LAB (PCP) Comment: RESULTS WERE OBTAINED BY IMMUNOASSAY AND ARE PRESUMPTIVE ONLY. POSITIVE INDICATES THE PRESENCE OF SUBSTANCE WITH CHARACTERISTICS SIMILAR TO DRUG-DRUG CLASS OR METABOLITE IN CONC. EQUAL TO OR EXCEEDING VALUES LISTED. PHENCYCLIDINE (PCP) 25 NG/ML Specimen Urine - Urine specimen (specimen) Performing Organization Address [facility] Code P gomez Number MAIN LAB [address] [place] [address] * OPIATES-URINE RANDOM (09/29/2021 5:45 PM MEDICAL TYPIST) Opiates-Urine NEG NEG-NEG [facility] LAB Comment: RESULTS WERE OBTAINED BY IMMUNOASSAY AND ARE PRESUMPTIVE ONLY. POSITIVE INDICATES THE PRESENCE OF SUBSTANCE WITH CHARACTERISTICS SIMILAR TO DRUG-DRUG CLASS OR METABOLITE IN CONC. EQUAL TO OR EXCEEDING VALUES LISTED. OPIATES 2000 NG/ML Specimen Urine - Urine specimen (specimen) Performing Organization Address [facility] Code P gomez Number [facility] [address] [place] [address] * COCAINE-URINE RANDOM (09/29/2021 5:45 PM MEDICAL TYPIST) Cocaine-Urine NEG NEG-NEG [facility] Comment: RESULTS WERE OBTAINED BY IMMUNOASSAY AND ARE PRESUMPTIVE ONLY. POSITIVE INDICATES THE PRESENCE OF SUBSTANCE WITH CHARACTERISTICS SIMILAR TO DRUG-DRUG CLASS OR METABOLITE IN CONC. EQUAL TO OR EXCEEDING VALUES LISTED. COCAINE 300 NG/ML Specimen Urine - Urine specimen (specimen) Performing Organization Address City/[facility]/ZIP Code P gomez Number [facility] [address] [place] [address] * CANNABINOIDS-URINE RANDOM (09/29/2021 5:45 PM MEDICAL TYPIST) THC NEG NEG-NEG MAIN LAB Comment: RESULTS WERE OBTAINED BY IMMUNOASSAY AND ARE PRESUMPTIVE ONLY. POSITIVE INDICATES THE PRESENCE OF SUBSTANCE WITH CHARACTERISTICS SIMILAR TO DRUG-DRUG CLASS OR METABOLITE IN CONC. EQUAL TO OR EXCEEDING VALUES LISTED. CANNABINOIDS 50 NG/ML Specimen Urine - Urine specimen (specimen) Performing Organization Address [facility] Code P gomez Number [facility] [address] [place] [address] * BENZODIAZEPINES-URINE RANDOM (09/29/2021 5:45 PM MEDICAL TYPIST) Benzodiazepines NEG NEG-NEG MAIN LAB Comment: RESULTS WERE OBTAINED BY IMMUNOASSAY AND ARE PRESUMPTIVE ONLY. POSITIVE INDICATES THE PRESENCE OF SUBSTANCE WITH CHARACTERISTICS SIMILAR TO DRUG-DRUG CLASS OR METABOLITE IN CONC. EQUAL TO OR EXCEEDING VALUES LISTED. BENZODIAZEPINES 200 NG/ML Specimen Urine - Urine specimen (specimen) Performing Organization Address [facility] Code P gomez Number [facility] [address] [place] [address] * BARBITURATES-URINE RANDOM (09/29/2021 5:45 PM MEDICAL TYPIST) Pathologist [facility] Barbiturates,Ur NEG NEG-NEG MAIN LAB ine Comment: RESULTS WERE OBTAINED BY IMMUNOASSAY AND ARE PRESUMPTIVE ONLY. POSITIVE INDICATES THE PRESENCE OF SUBSTANCE WITH CHARACTERISTICS SIMILAR TO DRUG-DRUG CLASS OR METABOLITE IN CONC. EQUAL TO OR EXCEEDING VALUES LISTED. BARBITURATES 200 NG/ML Specimen Urine - Urine specimen (specimen) Performing Organization Address [facility] P gomez Number MAIN LAB [address] [place] [address] * (ABNORMAL) AMPHETAMINES-URINE RANDOM (09/29/2021 5:45 PM MEDICAL TYPIST) Pathologist [facility] Amphetamines POS (A) NEG-NEG MAIN LAB Comment: RESULTS WERE OBTAINED BY IMMUNOASSAY AND ARE PRESUMPTIVE ONLY. POSITIVE INDICATES THE PRESENCE OF SUBSTANCE WITH CHARACTERISTICS SIMILAR TO DRUG-DRUG CLASS OR METABOLITE IN CONC. EQUAL TO OR EXCEEDING VALUES LISTED. AMPHETAMINES 1000 NG/ML Specimen Urine - Urine specimen (specimen) Performing Organization Address [facility]/ZIP Code P gomez Number MAIN LAB [address] [place] [address] * UA REFLEX LABEL (09/29/2021 5:45 PM MEDICAL TYPIST) UA Reflex Criteria for reflex to culture [facility] Culture are WBC>10, Positive Nitrit e, and/or >=+1 leukocytes. If quantity is not sufficient, an addendum will follow. Specimen Urine specimen (specimen) Performing Organization Address [facility]/ZIP Code P gomez Number [facility] [address] [place] [address] * URINALYSIS MICROSCOPIC REFLEX TO CULTURE (09/29/2021 5:45 PM MEDICAL TYPIST) WBCs,UA 0-2 0 - 2 /HPF [facility] RBCs,UA 0-2 0 - 3 /HPF [facility] Comment,UA Criteria for reflex to culture [facility] are WBC>10, Positive Nitrite, and/or >=+1 leukocytes. If quantity is not sufficient, an addendum will follow. Squamous 0-2 0 - 5 [facility] Epithelial Cells Specimen Urine specimen (specimen) Performing Organization Address [facility] P gomez Number [facility] [address] [place] [address] * (ABNORMAL) URINALYSIS DIPSTICK REFLEX TO CULTURE (09/29/2021 5:45 PM MEDICAL TYPIST) Color,UA STRAW [facility] Turbidity,UA CLEAR CLEAR-CLEAR [facility] Specific 1.005Comment: NOTE NEW 1.005 - 1.030 [facility] [place]-Urine REFERENCE RANGES pH,UA 7.0 5.0 - 8.0 [...] Specimen Urine specimen (specimen) Performing Organization Address [facility] P gomez Number [facility] [address] [place] [address] * COVID-19 (SARS-COV-2) PCR (09/29/2021 3:40 AM MEDICAL TYPIST) COVID-19 FLOCKED [facility] MAIN LAB (SARS-CoV-2) NASOPHARYNGEAL PCR Source COVID-19 NOT DETECTED DN-NOT DETECTED MAIN LAB (SARS-CoV-2) Comment: PCR This assay is [...] performance characteristics have been verified by the [facility]. Fact sheet for providers: https://www.fda.gov/media/8067 85/download Fact sheet for patients: https://www.fda.gov/media/4722 87/download Specimen Flocked Swab - Nasopharyngeal structure (body structure) Performing Organization Address City/State/ZIP Code P gomez Number [facility] [address] [place] [address] * DIRECT EXAM (WET PREP) (09/29/2021 3:30 AM MEDICAL TYPIST) Battery Name DIRECT EXAM,WET PREP [facility] Report Status FINAL 09/29/2021 [facility] Specimen SWAB VAGINAL [facility] Description Special No special requests [facility] Requests Direct Exam NO YEAST SEEN [facility] Direct Exam Specimen inadequate for the [facility] L AB evaluation of clue cells Direct Exam NO TRICHOMONAS SEEN [facility] Specimen Swab Performing Organization Address City/[facility] P gomez Number [facility] [address] [place] [id number] * COMPREHENSIVE METABOLIC PANEL (09/29/2021 2:18 AM MEDICAL TYPIST) Sodium 140 137 - 147 MMOL/L [facility] [...] >60 >60 mL/min [facility] Comment: [place] The eGFR is not validated f or use in drug dosing adjustments. Continue to use estimated creatinine clearance per dosing reference text. Please contact the Clinical Pharmacist for questions. eGFR >60 >60 mL/min [facility] [place] Comment: The eGFR is not validated for use in drug dosing adjustments. Continue to use estimated creatinine clearance per dosing reference text. Please contact the Clinical Pharmacist for questions. Specimen Blood (substance) Performing Organization Address City/State/ZIP Code P gomez Number [facility] [address] [place] [address] * (ABNORMAL) CBC AND DIFF (09/29/2021 2:18 AM MEDICAL TYPIST) White Blood 6.3 4.5 - 11.0 K/UL [facility] Cells RBC 4.26 4.0 - 5.0 M/UL [facility] Hemoglobin 12.1 12.0 - 15.0 GM/DL [facility] Hematocrit 36.5 36 - 45 % [facility] MCV 85.7 80 - 100 FL [facility] MCH 28.5 26 - 34 PG [facility] MCHC 33.3 32.0 - 36.0 G/DL [facility] RDW 12.8 11 - 15 [...] gomez Number MAIN LAB [address] [place] [address] documented in this encounter Visit Diagnoses Diagnosis Uterine prolapse Uterine prolapse without mention of vag inal wall prolapse Uterine procidentia Uterovaginal prolapse, complete Encounter for screening laboratory test ing for COVID-19 virus in asymptomatic patient Pelvic relaxation due to uterovaginal p rolapse, complete Uterovaginal prolapse, complete OAB (overactive bladder) Hypertonicity of bladder Stress incontinence in female Female stress incontinence documented in this encounter Admitting Diagnoses Diagnosis Uterine procidentia Uterovaginal prolapse, complete documented in this encounter Administered Medications Action Date Dose Rate Site Medication Order MAR Action 09/30/2021 8:15 AM MEDICAL TYPIST 875 mg amoxicillin-potassium clavulanate Given (AUGMENTIN) tablet 875 mg 875 mg, Oral, TWICE DAILY WITH MEALS, First dose (after last modification) on Sun09/30/21 at 0800, Until Discontinued, NURSING: Please educate patient and document: Give with food. 09/29/2021 8:32 AM MEDICAL TYPIST 100 mg docusate (COLACE) capsule 100 mg Given 100 mg, Oral, DAILY PRN, Starting on Sun09/29/21 at 0508, Until Sun 1 at 1506, Constipation PO, Hold for loos e stools. 09/30/2021 6:37 AM MEDICAL TYPIST 0.5 mg HYDROmorphone injection (DILAUDID) 0.5-1 Given mg 0.5-1 mg, Intravenous, ONCE, 1 dose, On Sun09/30/21 at 0615, Only to be used for exam in AM. Please do not administe r until approves 09/29/2021 2:38 AM MEDICAL TYPIST 1,000 mL 999 mL/hr lactated ringers infusion Given - New 1,000 mL, 1,000 mL, Intravenous, at 999 Bag mL/hr, ONCE, 1 dose, On Amy 09/29/21 at 0315 09/30/2021 6:39 AM MEDICAL TYPIST 0.5 mg LORazepam (ATIVAN) injection 0.5 mg Given 0.5 mg, Intravenous, ONCE, 1 dose, On Sun09/30/21 at 0615, PROTECT FROM LIGHT, only to be used for exam in AM. Please do not administer until MD approves mineral oil/hydrophilic petrolatum (AQUAPHOR, DERMAPHOR) topical ointment Topical, NEEDED, Starting on Amy 09/29/21 at 0600, Until Sun09/30/21 at 1506, Dry Skin, Apply to perineum as needed ondansetron (ZOFRAN ODT) rapid dissolve tablet 4 mg 4 mg, Oral, EVERY 6 HOURS PRN, Startin g on Amy 09/29/21 at 0508, Until Sun09/30/21 at 1506, Nausea/Vomiting PO, Place on tongue and allow to dissolve. 09/30/2021 8:19 AM MEDICAL TYPIST 4 mg ondansetron (ZOFRAN) injection 4 mg Given 4 mg, Intravenous, EVERY 6 HOURS PRN, Starting on Amy 09/29/21 at 0508, Until Sun09/30/21 at 1506, Nausea/Vomiting Injectable documented in this encounter Historical Medications * This list may reflect changes made after this encounter. Start Date End Date Medication Sig Dispensed Refills 11/25/2021 amoxicillin-potassium Take 1 tablet 0 clavulanate (AUGMENTIN) by mouth 875/125 mg tablet every 12 hours. Take with food. added in this encounter Active and Recently Administered Medications Times are shown in MEDICAL TYPIST. 09/29/2021 09/30/2021 Medication Order 09/28/2021 0815 (Given - Provider: Angelica Soares RN) amoxicillin-potassium clavulanate (AUGMENTIN) tablet 875 mg 875 mg, Oral, TWICE DAILY WITH MEALS, First dose (after last modification) on Sun09/30/21 at 0800, Until Discontinued, NURSING: Please educate patient and document: Give with food. 0637 (Given - Provider: Zuleyma Murphy) HYDROmorphone injection (DILAUDID) 0.5- 1 mg (COMPLETED) 0.5-1 mg, Intravenous, ONCE, 1 dose, On Sun09/30/21 at 0615, Only to be used for exam in AM. Please do not administe r until MD approves 0238 (Given - New Bag - Provider: Melissa Bella, SELVIN)0441 (Infusion Stopped - Provider: Leana Romero RN) lactated ringers infusion (COMPLETED) 1,000 mL, 1,000 mL, Intravenous, at 999 mL/hr, ONCE, 1 dose, On Sun09/29/21 at 0315 0639 (Given - Provider: Zuleyma Murphy) LORazepam (ATIVAN) injection 0.5 mg (COMPLETED) 0.5 mg, Intravenous, ONCE, 1 dose, On Sun09/30/21 at 0615, PROTECT FROM LIGHT, only to be used for exam in AM. Please do not administer until MD approves 09/29/2021 09/30/2021 Medication Order 09/28/2021 0832 (Med Not Given - Provider: Arabella Perkins RN - Reason: Patient Refused) acetaminophen (TYLENOL) tablet 650 mg 650 mg, Oral, EVERY 6 HOURS PRN, Starting on Sun09/29/21 at 0508, Until Sun09/30/21 at 1506, Pain non-opioid: may be used alone or in combination wit h opioid analgesia, TOTAL ACETAMINOPHEN DOSE NOT TO EXCEED 4GM DAILY 0832 (Given - Provider: Arleth Perkins RN) docusate (COLACE) capsule 100 mg 100 mg, Oral, DAILY PRN, Starting on Sun09/29/21 at 0508, Until Sun 1 at 1506, Constipation PO, Hold for loos e stools. mineral oil/hydrophilic petrolatum (AQUAPHOR, DERMAPHOR) topical ointment Topical, NEEDED, Starting on Sun09/29/21 at 0600, Until Sun09/30/21 at 1506, Dry Skin, Apply to perineum as needed 0819 (See Alternative - Provider: Kirill Soares RN) ondansetron (ZOFRAN ODT) rapid dissolve tablet 4 mg(Linked Group 1) 4 mg, Oral, EVERY 6 HOURS PRN, Startin g on Sun09/29/21 at 0508, Until Sun09/30/21 at 1506, Nausea/Vomiting PO, Place on tongue and allow to dissolve. 0819 (Given - Provider: Angelica Soares, SELVIN) ondansetron (ZOFRAN) injection 4 mg(Linked Group 1) 4 mg, Intravenous, EVERY 6 HOURS PRN, Starting on Amy 09/29/21 at 0508, Until Sun09/30/21 at 1506, Nausea/Vomiting Injectable Order Group 1: ondansetron (ZOFRAN ODT) rapid dissolve tablet 4 mgJump to med 4 mg, Oral, EVERY 6 HOURS PRN, Startin g on Amy 09/29/21 at 0508, Until Sun09/30/21 at 1506, Nausea/Vomiting PO
Place on tongue a nd allow to dissolve.
Or ondansetron (ZOFRAN) injection 4 mgJump to med 4 mg, Intravenous, EVERY 6 HOURS PRN, Starting on Amy 09/29/21 at 0508, Until Sun09/30/21 at 1506, Nausea/Vomiting Injectable documented in this encounter Orders First Ordered Date Medications Ordered That Might Not Have Count Last Ordered Date Been Administered acetaminophen (TYLENOL) tablet 650 mg 1 09/29/2021 amoxicillin-potassium clavulanate 1 09/12 (AUGMENTIN) tablet 875 mg mineral oil/hydrophilic petrolatum 1 (AQUAPHOR, DERMAPHOR) topical ointment ondansetron (ZOFRAN ODT) rapid dissolve 1 09/29/2021 tablet 4 mg First Ordered Date Diet Count Last Ordered Date DISCHARGE DIET REGULAR 1 09/30/2021 First Ordered Date Nursing Count Last Ordered Date DISCHARGE ACTIVITY NORMAL 1 09/30/2021 DISCHARGE COMMENTS 1 09/30/2021 DISCHARGE CONTACT 1 09/30/2021 DISCHARGE SIGNS/SYMPTOMS 1 09/30/2021 First Ordered Date Consult Count Last Ordered Date CONSULT MANAGER COMMERCIAL SALES PHYSCIAN 1 09/29/2021 First Ordered Date Admission Count Last Ordered Date PLACE PATIENT OBSERVATION CLASS 1 First Ordered Date Discharge Count Last Ordered Date DISCHARGE PATIENT NOW 1 09/30/2021 First Ordered Date Equipment Count Last Ordered Date COMPRESSION DEVICE, LEG 1 09/29/2021 First Ordered Date Vital Signs Count Last Ordered Date VITAL SIGNS 1 09/29/2021 First Ordered Date Activity Count Last Ordered Date MOBILITY 1 09/29/2021 First Ordered Date Order Set Communication Count Last Ordered D ate VTE DRUG PROPHYLAXIS CONTRAINDICATED 1 1 11/29/2020 First Ordered Date Intake & Output Count Last Ordered Date INTAKE AND OUTPUT 1 09/29/[address] & Maintain Count Last Ordered Date PLACE AND MAINTAIN SCD 1 09/29/2021 documented in this encounter Additional Health Concerns Noted Time Assessment 09/30/2021 8:20 AM MEDICAL TYPIST A fall risk assessment has been complet ed for the patient documented as of this encounter Care Teams Start Date End Date Dumper Operator Relationship Specialty 09/28/21 No Pcp, Na PCP - General documented as of this encounter
--- OUTSIDE RECORDS SUMMARY | 2021-11-26 06:02 | XMS REPORT | Encounter Summary ---
Author Author [facility] Organization [facility] Address Unknown Phone Unavailable Care Team Providers Care Oliver Filter Operator Name Role Phone No Pcp, Na PCP Unavailable Reason for Referral * Outpatient Procedure (Routine) - New Request Diagnoses / Procedures Referred By Contact [facility] Diagnoses History of urinary urgency Incomplete uterine prolapse Urinary incontinence, urge Voiding dysfunction Procedures URODYNAMIC STUDIES Marcela King MD [address] [facility] [address] [place] [id number] Referral ID Status Reason Start Date Expiration Visits Vi sits Date Requested Authorized [id number] New Request 11/21/2021 11/21/2022 1 1 STACK WEB DEVELOPER Reason for Visit * Reason Comments Procedure urd Encounter Details Care Team Description Date Type Department Sakina Tilley PA-C [address] [facility] [address] [place] [address] [phone] Marcela King MD [address] [facility] [address] [place] [address] [phone] Suspected UTI (Primary Dx); History of urinary urgency; Incomplete uterine prolapse; Urinary incontinence, urge; Voiding dysfunction 11/21/2021 Procedure visit Urogynecology: [facility] [place] [address] [place] [address] Social History Date Tobacco Use [...] at Date Recorded Female 11/24/2021 11:30 AM FULL STACK WEB DEVELOPER Date Recorded COVID-19 Exposure Response 11/21/2021 10:31 AM FULL STACK WEB DEVELOPER In the last month, have you been in contact with No / Unsure someone who was confirmed or suspected to have Coronavirus / COVID-19? documented as of this encounter Last Filed Vital Signs Reading Time Taken Comments Vital Sign - - Blood Pressure - - Pulse - - Temperature - - Respiratory Rate - - Oxygen Saturation - - Inhaled Oxygen Concentration 65.8 kg (145 lb) 11/21/2021 10:38 AM FULL STACK WEB DEVELOPER Weight 162.6 cm (5' 4") 11/21/2021 10:38 AM FULL STACK WEB DEVELOPER Height 24.89 11/21/2021 10:38 AM FULL STACK WEB DEVELOPER Body Mass Index documented in this encounter Functional Status Date of Assessment Functional Status Response 09/29/2021 Does the patient have a hearing impairment: No documented as of this encounter Ordered Prescriptions Start Date End Date Prescription Sig Dispensed Refills 11/21/2021 12/01/2021 ciprofloxacin (CIPRO) 500 Take one 20 tablet 0 mg tablet tablet by mouth twice daily for 10 days. documented in this encounter Progress Notes * Marcela King MD - 11/21/2021 10:00 AM FULL STACK WEB DEVELOPER Negative urine culture. Please contact patient with normal results. STACK WEB DEVELOPER * Marcela King MD - 11/21/2021 10:00 AM FULL STACK WEB DEVELOPER Images from the original note were not included. SURGICAL CONSULTATION: URODYNAMICS IMPRESSION: Performed with Gellhorn pessary in place 1) Uroflowmetry could not be interpreted due to starting volume of <150mL. There was evidence of retention by her presentation today with Stage IV prolapse and inability to void until her prolapse was reduced. 2) There was sensory urgency with a capacity of 271 mL. 3) Urodynamic stress urinary incontinence was not present with a normal pressure urethra. (UCPP 98 cm H2O) 4) Detrusor overactivity was present and was not associated with incontinence 5) The voiding pattern was dysfunctional STAGE IV UTEROVAGINAL PROLAPSE Treatment Options: Expectant management Kegals / Pelvic floor PT -> currently using a gellhorn pessary - desires surgery Pessary trial Surgical management: VAGINAL APPROACH: Not an option due to age/ desire to maintain sexu al activity Colpocleisis 95% success at 10 years Unable to have intercourse, closes vagina No hysterectomy Possible anterior repair Possible posterior repair Possible enterocele repair Possible incontinence procedure (Urodynamics needed) ___ ABDOMINAL APPROACH (abdominal incision / laparoscopy/ robot ically) Sacrocolpopexy (mesh) 90% success at ten years Supracervical hysterectomy Possible anterior repair Possible posterior repair Possible enterocele repair Possible incontinence procedure (Urodynamics needed) __ OVERACTIVE BLADDER SX /URGE INCONTINENCE SX PAtient unable to tolerate UDS today Treatment Options: Expectant management Behavior modification limit caffeine timed voids Kegals/Pelvic Fl oor PT OAB me dications Oxybutynin/ Dit ropan, Oxytrol, Gelnique Detrol/Tolterod ine, Toviaz Vesicare/Solifi nacin Enablex/Darifen acin Santura/Tropsiu m Chloride Myrbetriq Chemodenervation Injection of Botox into the bladde r wall Neuromodulation Posterior tibial nerve stimulation (PTNS) Implant bladder pacemaker (Interst im) ___ STRESS URINARY INCONTINENCE sx but DUNG not seen in URODYNAMICS test Will perform Q-TIP under anesthesia to further determine whether Midurethra slin g should be placed intraop Treatment Options: Expectant management Kegals / Pelvic floor PT Pessary trial Surgery (Gold Standard): Midur ethral sling (polypropylene mesh) Cystourethroscopy PLANNED SURGERY: Laparoscopic [...] of organ failure/injury or . I would want to receive a blood transfusion it lifesaving or organ sparing Need for additional surgery New-onset urinary incontinence or worsened urge incontinence Fistulae formation Mesh erosion Injury to surrounding muscles, nerves, blood vessels or organs (bladder, urethra, ureter, bowel) Post-op pain Pain with intercourse after 3 months (6%) Recurrent vaginal prolapse (65% apache tissue moth exterminator success rate) Infection, hematoma, or keloid/scar tissue at incision site Positioning injury STACK WEB DEVELOPER * Beth Pierre - 11/21/2021 10:00 AM FULL STACK WEB DEVELOPER Pertinent Review of Systems: - General ROS: [...] the groin area and ot her sites STACK WEB DEVELOPER documented in this encounter Procedure Notes * Marcela King MD - 11/21/2021 10:00 AM FULL STACK WEB DEVELOPER Associated Order(s): URODYNAMIC STUDIES Procedure(s): UT COMPLX CYSTOMETRO W/VOID PRESS & URETHRAL PROFIL; UT COMPLEX UROFLOMETRY; UT EMG STDS ANAL/URTL SPHNCTR OTH/THN NDL; UT VOID PRESSURE STUDIES INTRAABDOMINAL Pre-Procedure Diagnose(s): History of urinary urgency; Incomplete uterine prolap se; Urinary incontinence, urge; Voiding dysfunction Post-Procedure Diagnose(s): History of urinary urgency; Incomplete uterine prola pse; Urinary incontinence, urge; Voiding dysfunction URODYNAMIC CLINIC REPORT Delia Mireles was seen for UDS on 11/21/2021 for the following indications: Uterovaginal prolapse , urinary urgency, mixed incontinence symptoms The patient was brought to the urodynamics room. She was asked to void with eval uation by uroflow. A urine dip confirmed no evidence of infection. A 7 Fr urodynamic catheter was placed intravesically (Gi, Pves) and in the rec mateusz (Pabd). There was reduction of vaginal prolapse with a gelhorn pessary, and one colpotip . EMG stickers were affixed to the bilateral buttock and grounded o n the patient's knee. The patient was in the sitting position and was asked to c ough to confirm proper placement of the pressure catheters. Cystometrogram was p erformed with filling at up to 50 mL/min. Incremental sensations of fullness wer e recorded, and a cough stress test and valsalva stress test were performed as b elow. A urethral closure pressure profile with a puller evaluated the urethral p atency. The patient was asked to void with the catheters in place for a pressur e flow study. At the conclusion of the [...] ml (normal is 260-450ml) 75% of maximum cap acity Strong desire: 131 ml + 49 ml (normal is 315-540ml 90 % of maximum c apacity Maximum capacity: 173 ml + 49 ml [...] 2) There was sensory urgency with a capacity of 271 mL. 3) Urodynamic stress urinary incontinence was not present with a normal pressure urethra. (UCPP 98 cm H2O) 4) Detrusor overactivity was present and was not associated with incontinence 5) The voiding pattern was dysfunctional STACK WEB DEVELOPER documented in this encounter Miscellaneous Notes * Patient Instructions - Susan Noyola LPN - 11/21/2021 10:00 AM FULL STACK WEB DEVELOPER Today you underwent a urodynamics procedure. It is normal for some patients to feel discomfort with voiding (urinating) for the following 24 hours. You may se e a pink color of urine on the toilet paper with wiping after the first few time s you void (urinate). Urinary tract infections can occur after urodynamics, although very rarely. We often administer an oral antibiotic to you at the time of the procedure. If you r physician has concerns that you are more at risk of developing a urinary tract infection, you will be prescribed additional antibiotics to take for several mo re days. Please call our office if you develop symptoms of a UTI: Burning with urination lasting more than 24 hours after the procedure Bladder pressure New onset of increased frequency of needing to go to the bathroom in the day or night Increased urgency associated with voiding/urinating New onset of low back pain that is not in the middle of the back Chills or low grade fever (temperature above 101.4) Symptoms of a more severe urinary tract infection that could involve the kidneys are uncommon. Please go to the nearest emergency room or urgent care if you de velop: Bloody urine Mental confusion Mid back pain Temperature >101.4 degrees Chills STACK WEB DEVELOPER documented in this encounter Plan of Treatment Care Team Description Date Type Specialty aMrcela King MD [address] [facility] [address] [place] [address] [phone] Encounter for screening laboratory testi ng for COVID-19 virus in asymptomatic patient 12/12/2021 Hospital Encounter Ney Mclain MD [id number] [place] [address] 12/12/2021 Anesthesia Event Marcela King MD [address] [facility] [address] [place] [address] ROBOT ASSISTED LAPAROSCOPIC SUPRACERVICA L HYSTERECTOMY WITH REMOVAL OF TUBE/ OVARY - UTERUS 250 G OR LESS 12/12/2021 Surgery Date/Time Name Priority Associated Diagnose s 12/12/2021 7:45 AM FULL STACK WEB DEVELOPER ROBOT ASSISTED LAPAROSCOPIC Encounter for screening SUPRACERVICAL HYSTERECTOMY WITH REMOVAL laboratory testing for OF TUBE/ OVARY - UTERUS 250 G OR LESS COVID-19 viru s in asymptomatic patient 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, complete OAB (overactive bladder) Stress incontinence in female 12/12/2021 7:45 AM FULL STACK WEB DEVELOPER ROBOT ASSISTED LAPAROSCOPIC COLPOPEXY Encounter for screening laboratory testing for COVID-19 virus in asymptomatic patient 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, complete OAB (overactive bladder) Stress incontinence in female 12/12/2021 7:45 AM FULL STACK WEB DEVELOPER ABDOMINAL REPAIR OF ENTEROCELE Encounter for screen ing laboratory testing for COVID-19 virus in asymptomatic patient 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, complete OAB (overactive bladder) Stress incontinence in female 12/12/2021 7:45 AM FULL STACK WEB DEVELOPER ANTERIOR COLPORRHAPHY AND REPAIR OF Encounter for s creening CYSTOCELE WITH/ WITHOUT URETHROCELE laboratory test ing for COVID-19 virus in asymptomatic patient 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, complete OAB (overactive bladder) Stress incontinence in female 12/12/2021 7:45 AM FULL STACK WEB DEVELOPER POSTERIOR COLPORRHAPHY REPAIR OF Encounter for scre ening RECTOCELE WITH/ WITHOUT PERINEORRHAPHY laboratory t esting for COVID-19 virus in asymptomatic patient 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, complete OAB (overactive bladder) Stress incontinence in female 12/12/2021 7:45 AM FULL STACK WEB DEVELOPER SLING OPERATION FOR STRESS INCONTINENCE Encounter f or screening laboratory testing for COVID-19 virus in asymptomatic patient 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, complete OAB (overactive bladder) Stress incontinence in female 12/12/2021 7:45 AM FULL STACK WEB DEVELOPER CYSTOURETHROSCOPY Encounter for screening laboratory testing for COVID-19 virus in asymptomatic patient 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, complete OAB (overactive bladder) Stress incontinence in female 12/12/2021 7:45 AM FULL STACK WEB DEVELOPER EXAM PELVIS UNDER ANESTHESIA Encounter for screenin g laboratory testing for COVID-19 virus in asymptomatic patient 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, complete OAB (overactive bladder) Stress incontinence in female documented as of this encounter Procedures Comments Procedure Name Priority Date/Time Associated Diag nosis CULTURE-URINE 11/21/2021 W/SENSITIVITY 11:02 AM FULL STACK WEB DEVELOPER UT COMPLX CYSTOMETRO Routine 11/21/2021 History o f urinary W/VOID PRESS & URETHRAL 10:00 AM FULL STACK WEB DEVELOPER urgency PROFIL Incomplete uterine prolapse Urinary incontinence, urge Voiding dysfunction UT COMPLEX UROFLOMETRY Routine 11/21/2021 History of urinary 10:00 AM FULL STACK WEB DEVELOPER urgency Incomplete uterine prolapse Urinary incontinence, urge Voiding dysfunction UT EMG STDS ANAL/URTL Routine 11/21/2021 History of urinary SPHNCTR OTH/THN NDL 10:00 AM FULL STACK WEB DEVELOPER urgency Incomplete uterine prolapse Urinary incontinence, urge Voiding dysfunction UT VOID PRESSURE STUDIES Routine 11/21/2021 Histo ry of urinary INTRAABDOMINAL 10:00 AM FULL STACK WEB DEVELOPER urgency Incomplete uterine prolapse Urinary incontinence, urge Voiding dysfunction documented in this encounter Results * CULTURE-URINE W/SENSITIVITY (11/21/2021 11:02 AM FULL STACK WEB DEVELOPER) Battery Name URINE CULTURE MAIN LAB Report Status FINAL 11/22/2021 MAIN LAB Specimen URINE MAIN LAB Description Special No special requests [facility] Requests Culture NO GROWTH [facility] Specimen Urine Performing Organization Address City/State/ZIP Code P g[facility] Number MAIN LAB [id number] [place] [address] * UT VOID PRESSURE STUDIES INTRAABDOMINAL, UT EMG STDS ANAL/URTL SPHNCTR OTH/THN NDL, UT COMPLEX UROFLOMETRY, UT COMPLX CYSTOMETRO W/VOID PRESS & URETHRAL PROFIL (11/21/2021 10:00 AM FULL STACK WEB DEVELOPER) Narrative IN CLINIC - 11/21/2021 10:00 AM FULL STACK WEB DEVELOPER Marcela King MD 11/21/2021 1:32 PM URODYNAMIC CLINIC REPORT Delia Mireles was seen for UDS on 11/21/2021 [...] Marcela King MD - 11/21/2021 10:00 AM FULL STACK WEB DEVELOPER URODYNAMIC CLINIC REPORT Delia Mireles was seen for UDS on 11/21/2021 [...] City/State/ZIP Code [place] Number IN CLINIC documented in this encounter Visit Diagnoses Diagnosis Suspected UTI - Primary History of urinary urgency Incomplete uterine prolapse Uterovaginal prolapse, incomplete Urinary incontinence, urge Urge incontinence Voiding dysfunction Unspecified disorder of urethra and uri nary tract Encounter for screening laboratory test ing for COVID-19 virus in asymptomatic patient Pelvic relaxation due to uterovaginal p rolapse, complete Uterovaginal prolapse, complete OAB (overactive bladder) Hypertonicity of bladder Stress incontinence in female Female stress incontinence documented in this encounter Orders First Ordered Date Medications Ordered That Might Not Have Count Last Ordered Date Been Administered ciprofloxacin (CIPRO) tablet 500 mg 1 documented in this encounter Additional Health Concerns Noted Time Assessment 09/30/2021 8:20 AM FULL STACK WEB DEVELOPER A fall risk assessment has been complet ed for the patient 10/11/2021 11:48 AM FULL STACK WEB DEVELOPER PHQ-2 Depression Total Score: 0 documented as of this encounter Care Teams Start Date End Date Oliver Filter Operator Relationship Specialty 09/28/21 No Pcp, Na PCP - General documented as of this encounter
--- OUTSIDE RECORDS SUMMARY | 2021-11-26 06:02 | XMS REPORT | Encounter Summary ---
Author Author [facility] Organization [facility] Address Unknown Phone Unavailable Care Team Providers Care Psychological Operations Name Role Phone No Pcp, Na PCP Unavailable Reason for Visit * Reason Onset Date Comments Follow-up Phone Call 11/23/2021 Encounter Details Care Team Description Date Type Department Marcela King MD [address] [facility] [address] [phone] Follow-up Phone Call 11/23/2021 Telephone Urogynecology: [facility] [address] [place] [address] Social History Date Tobacco Use [...] at Date Recorded Female 11/24/2021 11:30 AM BOOK SOLICITOR Date Recorded COVID-19 Exposure Response 11/21/2021 10:31 AM BOOK SOLICITOR In the last month, have you been in contact with No / Unsure someone who was confirmed or suspected to have Coronavirus / COVID-19? documented as of this encounter Functional Status Date of Assessment Functional Status Response 09/29/2021 Does the patient have a hearing impairment: No documented as of this encounter Miscellaneous Notes * Telephone Encounter - Susan Noyola LPN - 11/23/2021 10:13 AM BOOK SOLICITOR Attempted to contact this patient to inform her that her results were negative. Her vm was full and I was unable to leave a message or follow up from her mother 's call to our staff yesterday. SOLICITOR documented in this encounter Plan of Treatment Care Team Description Date Type Specialty Marcela King MD [address] [facility] [address] [place] [phone] Encounter for screening laboratory testi ng for COVID-19 virus in asymptomatic patient 12/12/2021 Hospital Encounter Ney Mclain MD [id number] [place] [address] 12/12/2021 Anesthesia Event Marcela King MD [address] [facility] [address] [place] [id number] ROBOT ASSISTED LAPAROSCOPIC SUPRACERVICA L HYSTERECTOMY WITH REMOVAL OF TUBE/ OVARY - UTERUS 250 G OR LESS 12/12/2021 Surgery Date/Time Name Priority Associated Diagnose s 12/12/2021 7:45 AM BOOK SOLICITOR ROBOT ASSISTED LAPAROSCOPIC Encounter for screening SUPRACERVICAL HYSTERECTOMY WITH REMOVAL laboratory testing for OF TUBE/ OVARY - UTERUS 250 G OR LESS COVID-19 viru s in asymptomatic patient 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, complete OAB (overactive bladder) Stress incontinence in female 12/12/2021 7:45 AM BOOK SOLICITOR ROBOT ASSISTED LAPAROSCOPIC COLPOPEXY Encounter for screening laboratory testing for COVID-19 virus in asymptomatic patient 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, complete OAB (overactive bladder) Stress incontinence in female 12/12/2021 7:45 AM BOOK SOLICITOR ABDOMINAL REPAIR OF ENTEROCELE Encounter for screen ing laboratory testing for COVID-19 virus in asymptomatic patient 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, complete OAB (overactive bladder) Stress incontinence in female 12/12/2021 7:45 AM BOOK SOLICITOR ANTERIOR COLPORRHAPHY AND REPAIR OF Encounter for s creening CYSTOCELE WITH/ WITHOUT URETHROCELE laboratory test ing for COVID-19 virus in asymptomatic patient 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, complete OAB (overactive bladder) Stress incontinence in female 12/12/2021 7:45 AM BOOK SOLICITOR POSTERIOR COLPORRHAPHY REPAIR OF Encounter for scre ening RECTOCELE WITH/ WITHOUT PERINEORRHAPHY laboratory t esting for COVID-19 virus in asymptomatic patient 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, complete OAB (overactive bladder) Stress incontinence in female 12/12/2021 7:45 AM BOOK SOLICITOR SLING OPERATION FOR STRESS INCONTINENCE Encounter f or screening laboratory testing for COVID-19 virus in asymptomatic patient 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, complete OAB (overactive bladder) Stress incontinence in female 12/12/2021 7:45 AM BOOK SOLICITOR CYSTOURETHROSCOPY Encounter for screening laboratory testing for COVID-19 virus in asymptomatic patient 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, complete OAB (overactive bladder) Stress incontinence in female 12/12/2021 7:45 AM BOOK SOLICITOR EXAM PELVIS UNDER ANESTHESIA Encounter for screenin g laboratory testing for COVID-19 virus in asymptomatic patient 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, complete OAB (overactive bladder) Stress incontinence in female documented as of this encounter Visit Diagnoses Not on filedocumented in this encounter Additional Health Concerns Noted Time Assessment 09/30/2021 8:20 AM BOOK SOLICITOR A fall risk assessment has been complet ed for the patient 10/11/2021 11:48 AM BOOK SOLICITOR PHQ-2 Depression Total Score: 0 documented as of this encounter Care Teams Start Date End Date Psychological Operations Relationship Specialty 09/28/21 No Pcp, Na PCP - General documented as of this encounter
--- OUTSIDE RECORDS SUMMARY | 2021-11-26 06:02 | XMS REPORT | Encounter Summary ---
Author Author [facility] Organization [facility] Address Unknown Phone Unavailable Care Team Providers Care Hemming And Tacking Machine Operator Name Role Phone No Pcp, Na PCP Unavailable Encounter Details Care Team Description Date Type Department [facility] [place] Bacterial vaginosis 10/17/2021 Orders Only Urogynecology: [facility] [place], [address], [place] [address] Social History Date Tobacco Use [...] at Date Recorded Female 11/24/2021 11:30 AM FACETER Date Recorded COVID-19 Exposure Response 10/11/2021 11:34 AM FACETER In the last month, have you been in contact with No / Unsure someone who was confirmed or suspected to have Coronavirus / COVID-19? documented as of this encounter Functional Status Date of Assessment Functional Status Response 09/29/2021 Does the patient have a hearing impairment: No documented as of this encounter Progress Notes * Marcela King MD - 10/17/2021 8:28 AM FACETER Positive vaginal culture showing overgrowth of Bacterial [...] (pink bottle - states it is for vag inal health) available at [facility] in refrigerated medication section or can be orde red on line). TER documented in this encounter Plan of Treatment Care Team Description Date Type Specialty Marcela King MD [address] [facility] [address] [place] [id number] Encounter for screening laboratory testi ng for COVID-19 virus in asymptomatic patient 12/12/2021 Hospital Encounter Ney Mclain MD [address] [place] [address] 12/12/2021 Anesthesia Event Marcela King MD [address] [facility] [facility] Lvl [address] [place] [address] ROBOT ASSISTED LAPAROSCOPIC SUPRACERVICA L HYSTERECTOMY WITH REMOVAL OF TUBE/ OVARY - UTERUS 250 G OR LESS 12/12/2021 Surgery Date/Time Name Priority Associated Diagnose s 12/12/2021 7:45 AM FACETER ROBOT ASSISTED LAPAROSCOPIC Encounter for screening SUPRACERVICAL HYSTERECTOMY WITH REMOVAL laboratory testing for OF TUBE/ OVARY - UTERUS 250 G OR LESS COVID-19 viru s in asymptomatic patient 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, complete OAB (overactive bladder) Stress incontinence in female 12/12/2021 7:45 AM FACETER ROBOT ASSISTED LAPAROSCOPIC COLPOPEXY Encounter for screening laboratory testing for COVID-19 virus in asymptomatic patient 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, complete OAB (overactive bladder) Stress incontinence in female 12/12/2021 7:45 AM FACETER ABDOMINAL REPAIR OF ENTEROCELE Encounter for screen ing laboratory testing for COVID-19 virus in asymptomatic patient 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, complete OAB (overactive bladder) Stress incontinence in female 12/12/2021 7:45 AM FACETER ANTERIOR COLPORRHAPHY AND REPAIR OF Encounter for s creening CYSTOCELE WITH/ WITHOUT URETHROCELE laboratory test ing for COVID-19 virus in asymptomatic patient 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, complete OAB (overactive bladder) Stress incontinence in female 12/12/2021 7:45 AM FACETER POSTERIOR COLPORRHAPHY REPAIR OF Encounter for scre ening RECTOCELE WITH/ WITHOUT PERINEORRHAPHY laboratory t esting for COVID-19 virus in asymptomatic patient 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, complete OAB (overactive bladder) Stress incontinence in female 12/12/2021 7:45 AM FACETER SLING OPERATION FOR STRESS INCONTINENCE Encounter f or screening laboratory testing for COVID-19 virus in asymptomatic patient 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, complete OAB (overactive bladder) Stress incontinence in female 12/12/2021 7:45 AM FACETER CYSTOURETHROSCOPY Encounter for screening laboratory testing for COVID-19 virus in asymptomatic patient 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, complete OAB (overactive bladder) Stress incontinence in female 12/12/2021 7:45 AM FACETER EXAM PELVIS UNDER ANESTHESIA Encounter for screenin g laboratory testing for COVID-19 virus in asymptomatic patient 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, complete OAB (overactive bladder) Stress incontinence in female documented as of this encounter Procedures Comments Procedure Name Priority Date/Time Associated Diag nosis ONESWAB Routine 10/11/2021 Bacterial vagin osis documented in this encounter Results * ONESWAB (10/11/2021) Specimen Vaginal structure (body structure) Narrative Performing Organization Address City/State/ZIP Code P gomez Number [facility] [address] [place] [address] documented in this encounter Visit Diagnoses Diagnosis Bacterial vaginosis Vaginitis and vulvovaginitis, unspecifi ed Encounter for screening laboratory test ing for COVID-19 virus in asymptomatic patient Pelvic relaxation due to uterovaginal p rolapse, complete Uterovaginal prolapse, complete OAB (overactive bladder) Hypertonicity of bladder Stress incontinence in female Female stress incontinence documented in this encounter Additional Health Concerns Noted Time Assessment 09/30/2021 8:20 AM FACETER A fall risk assessment has been complet ed for the patient 10/11/2021 11:48 AM FACETER PHQ-2 Depression Total Score: 0 documented as of this encounter Care Teams Start Date End Date Hemming And Tacking Machine Operator Relationship Specialty 09/28/21 No Pcp, Na PCP - General documented as of this encounter
--- OUTSIDE RECORDS SUMMARY | 2021-11-26 06:02 | XMS REPORT | Encounter Summary ---
Author Author [facility] Organization [facility] Address Unknown Phone Unavailable Care Team Providers Care Mechanical Research Engineer Name Role Phone No Pcp, Na PCP Unavailable Reason for Visit * Reason Onset Date Comments Follow-up Phone Call 10/03/2021 Encounter Details Care Team Description Date Type Department [facility] [address] [phone] Follow-up Phone Call 10/03/2021 Telephone Urogynecology: [facility] [address] [place] [address] Social History Date Tobacco Use [...] at Date Recorded Female 11/24/2021 11:30 AM ROUTE SALES DELIVERY DRIVER Date Recorded COVID-19 Exposure Response 09/28/2021 2:59 PM ROUTE SALES DELIVERY DRIVER In the last month, have you been in contact with No / Unsure someone who was confirmed or suspected to have Coronavirus / COVID-19? documented as of this encounter Functional Status Date of Assessment Functional Status Response 09/29/2021 Does the patient have a hearing impairment: No documented as of this encounter Miscellaneous Notes * Telephone Encounter - Susan Noyola LPN - 10/03/2021 5:23 PM ROUTE SALES DELIVERY DRIVER Patient reached out to us and decided she should be seen tomorrow for URD and co nsultation. We discussed that she would need to see us for testing prior to surg homer. She waivered back and forth and then said she would be at our clinic at 8 am. E SALES DELIVERY DRIVER documented in this encounter Plan of Treatment Care Team Description Date Type Specialty Marcela King MD [address] [facility] L[address] [place] [phone] Encounter for screening laboratory testi ng for COVID-19 virus in asymptomatic patient 12/12/2021 Hospital Encounter Ney Mclain MD [id number] [place] [address] 12/12/2021 Anesthesia Event Marcela King MD [address] [facility] L[address] [place] [address] ROBOT ASSISTED LAPAROSCOPIC SUPRACERVICA L HYSTERECTOMY WITH REMOVAL OF TUBE/ OVARY - UTERUS 250 G OR LESS 12/12/2021 Surgery Date/Time Name Priority Associated Diagnose s 12/12/2021 7:45 AM ROUTE SALES DELIVERY DRIVER ROBOT ASSISTED LAPAROSCOPIC Encounter for screening SUPRACERVICAL HYSTERECTOMY WITH REMOVAL laboratory testing for OF TUBE/ OVARY - UTERUS 250 G OR LESS COVID-19 viru s in asymptomatic patient 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, complete OAB (overactive bladder) Stress incontinence in female 12/12/2021 7:45 AM ROUTE SALES DELIVERY DRIVER ROBOT ASSISTED LAPAROSCOPIC COLPOPEXY Encounter for screening laboratory testing for COVID-19 virus in asymptomatic patient 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, complete OAB (overactive bladder) Stress incontinence in female 12/12/2021 7:45 AM ROUTE SALES DELIVERY DRIVER ABDOMINAL REPAIR OF ENTEROCELE Encounter for screen ing laboratory testing for COVID-19 virus in asymptomatic patient 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, complete OAB (overactive bladder) Stress incontinence in female 12/12/2021 7:45 AM ROUTE SALES DELIVERY DRIVER ANTERIOR COLPORRHAPHY AND REPAIR OF Encounter for s creening CYSTOCELE WITH/ WITHOUT URETHROCELE laboratory test ing for COVID-19 virus in asymptomatic patient 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, complete OAB (overactive bladder) Stress incontinence in female 12/12/2021 7:45 AM ROUTE SALES DELIVERY DRIVER POSTERIOR COLPORRHAPHY REPAIR OF Encounter for scre ening RECTOCELE WITH/ WITHOUT PERINEORRHAPHY laboratory t esting for COVID-19 virus in asymptomatic patient 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, complete OAB (overactive bladder) Stress incontinence in female 12/12/2021 7:45 AM ROUTE SALES DELIVERY DRIVER SLING OPERATION FOR STRESS INCONTINENCE Encounter f or screening laboratory testing for COVID-19 virus in asymptomatic patient 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, complete OAB (overactive bladder) Stress incontinence in female 12/12/2021 7:45 AM ROUTE SALES DELIVERY DRIVER CYSTOURETHROSCOPY Encounter for screening laboratory testing for COVID-19 virus in asymptomatic patient 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, complete OAB (overactive bladder) Stress incontinence in female 12/12/2021 7:45 AM ROUTE SALES DELIVERY DRIVER EXAM PELVIS UNDER ANESTHESIA Encounter for screenin g laboratory testing for COVID-19 virus in asymptomatic patient 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, complete OAB (overactive bladder) Stress incontinence in female documented as of this encounter Visit Diagnoses Not on filedocumented in this encounter Additional Health Concerns Noted Time Assessment 09/30/2021 8:20 AM ROUTE SALES DELIVERY DRIVER A fall risk assessment has been complet ed for the patient documented as of this encounter Care Teams Start Date End Date Mechanical Research Engineer Relationship Specialty 09/28/21 No Pcp, Na PCP - General documented as of this encounter
--- OUTSIDE RECORDS SUMMARY | 2021-11-26 06:02 | XMS REPORT | Encounter Summary ---
Author Author [facility] Organization [facility] Address Unknown Phone Unavailable Care Team Providers Care Director Of Quality Control Name Role Phone No Pcp, Na PCP Unavailable Reason for Visit * Reason Comments Consult Encounter Details Care Team Description Date Type Department Marcela King MD [address] [facility] [address] [phone] Arrived 11/21/2021 Office Visit Urogynecology: [facility] [place] [place] [address] [place] [id number] Social History Date Tobacco Use Types Packs/Day [...] at Date Recorded Female 11/24/2021 11:30 AM ROPE TOW OPERATOR Date Recorded COVID-19 Exposure Response 11/21/2021 10:31 AM ROPE TOW OPERATOR In the last month, have you been in contact with No / Unsure someone who was confirmed or suspected to have Coronavirus / COVID-19? documented as of this encounter Last Filed Vital Signs Reading Time Taken Comments Vital Sign 124/88 11/21/2021 1:07 PM ROPE TOW OPERATOR Blood Pressure 94 11/21/2021 1:07 PM ROPE TOW OPERATOR Pulse - - Temperature - - Respiratory Rate - - Oxygen Saturation - - Inhaled Oxygen Concentration 65.3 kg (144 lb) 11/21/2021 1:07 PM ROPE TOW OPERATOR Weight 162.6 cm (5' 4.02") 11/21/2021 1:07 PM ROPE TOW OPERATOR Height 24.71 11/21/2021 1:07 PM ROPE TOW OPERATOR Body Mass Index documented in this encounter Functional Status Date of Assessment Functional Status Response 09/29/2021 Does the patient have a hearing impairment: No documented as of this encounter Ordered Prescriptions Start Date End Date Prescription Sig Dispensed Refills 11/21/2021 11/28/2021 phenazopyridine Take one 20 tablet 0 (PYRIDIUM) 200 mg tablet tablet by mouth three times daily as needed for Pain for up to 7 days. Take after meals for up to 2 days. 11/21/2021 estradioL (ESTRACE) 0.01 Insert 1 gm 42.5 g 1 % (0.1 mg/g) vaginal in the vagina cream two nights a week at bedtime. documented in this encounter Plan of Treatment Care Team Description Date Type Specialty Marcela King MD [address] [facility] Lvl [address] [place] [address] Encounter for screening laboratory testi ng for COVID-19 virus in asymptomatic patient 12/12/2021 Hospital Encounter Ney Mclain MD [address] [place] [address] 12/12/2021 Anesthesia Event Marcela King MD [address] [facility] Lvl [address] [place] [address] ROBOT ASSISTED LAPAROSCOPIC SUPRACERVICA L HYSTERECTOMY WITH REMOVAL OF TUBE/ OVARY - UTERUS 250 G OR LESS 12/12/2021 Surgery Date/Time Name Priority Associated Diagnose s 12/12/2021 7:45 AM ROPE TOW OPERATOR ROBOT ASSISTED LAPAROSCOPIC Encounter for screening SUPRACERVICAL HYSTERECTOMY WITH REMOVAL laboratory testing for OF TUBE/ OVARY - UTERUS 250 G OR LESS COVID-19 viru s in asymptomatic patient 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, complete OAB (overactive bladder) Stress incontinence in female 12/12/2021 7:45 AM ROPE TOW OPERATOR ROBOT ASSISTED LAPAROSCOPIC COLPOPEXY Encounter for screening laboratory testing for COVID-19 virus in asymptomatic patient 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, complete OAB (overactive bladder) Stress incontinence in female 12/12/2021 7:45 AM ROPE TOW OPERATOR ABDOMINAL REPAIR OF ENTEROCELE Encounter for screen ing laboratory testing for COVID-19 virus in asymptomatic patient 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, complete OAB (overactive bladder) Stress incontinence in female 12/12/2021 7:45 AM ROPE TOW OPERATOR ANTERIOR COLPORRHAPHY AND REPAIR OF Encounter for s creening CYSTOCELE WITH/ WITHOUT URETHROCELE laboratory test ing for COVID-19 virus in asymptomatic patient 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, complete OAB (overactive bladder) Stress incontinence in female 12/12/2021 7:45 AM ROPE TOW OPERATOR POSTERIOR COLPORRHAPHY REPAIR OF Encounter for scre ening RECTOCELE WITH/ WITHOUT PERINEORRHAPHY laboratory t esting for COVID-19 virus in asymptomatic patient 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, complete OAB (overactive bladder) Stress incontinence in female 12/12/2021 7:45 AM ROPE TOW OPERATOR SLING OPERATION FOR STRESS INCONTINENCE Encounter f or screening laboratory testing for COVID-19 virus in asymptomatic patient 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, complete OAB (overactive bladder) Stress incontinence in female 12/12/2021 7:45 AM ROPE TOW OPERATOR CYSTOURETHROSCOPY Encounter for screening laboratory testing for COVID-19 virus in asymptomatic patient 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, complete OAB (overactive bladder) Stress incontinence in female 12/12/2021 7:45 AM ROPE TOW OPERATOR EXAM PELVIS UNDER ANESTHESIA Encounter for screenin g laboratory testing for COVID-19 virus in asymptomatic patient 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, complete OAB (overactive bladder) Stress incontinence in female documented as of this encounter Visit Diagnoses Not on filedocumented in this encounter Additional Health Concerns Noted Time Assessment 09/30/2021 8:20 AM ROPE TOW OPERATOR A fall risk assessment has been complet ed for the patient 10/11/2021 11:48 AM ROPE TOW OPERATOR PHQ-2 Depression Total Score: 0 documented as of this encounter Care Teams Start Date End Date Director Of Quality Control Relationship Specialty 09/28/21 No Pcp, Na PCP - General documented as of this encounter
--- OUTSIDE RECORDS SUMMARY | 2021-11-26 06:02 | XMS REPORT | Encounter Summary ---
Author Author [facility] Organization [facility] Address Unknown Phone Unavailable Care Team Providers Care Medical Administrator Name Role Phone No Pcp, Na PCP Unavailable Encounter Details Care Team Description Date Type Department 10/11/2021 Travel Social History Date Tobacco Use Types [...] at Date Recorded Female 11/24/2021 11:30 AM CURB MACHINE OPERATOR Date Recorded COVID-19 Exposure Response 10/11/2021 11:34 AM CURB MACHINE OPERATOR In the last month, have you [...] Date Type Specialty Marcela King MD [address] [facility] Lvl [address] [place] [phone] Encounter for screening laboratory testi ng for COVID-19 virus in asymptomatic patient 12/12/2021 Hospital Encounter Ney Mclain MD [id number] [place], [place] [id number] 12/12/2021 Anesthesia Event Marcela King MD [address] [facility] [address]vl [address] [place] [address] ROBOT ASSISTED LAPAROSCOPIC SUPRACERVICA L HYSTERECTOMY WITH REMOVAL OF TUBE/ OVARY - UTERUS 250 G OR LESS 12/12/2021 Surgery Date/Time Name Priority Associated Diagnose s 12/12/2021 7:45 AM CURB MACHINE OPERATOR ROBOT ASSISTED LAPAROSCOPIC Encounter for screening SUPRACERVICAL HYSTERECTOMY WITH REMOVAL laboratory testing for OF TUBE/ OVARY - UTERUS 250 G OR LESS COVID-19 viru s in asymptomatic patient 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, complete OAB (overactive bladder) Stress incontinence in female 12/12/2021 7:45 AM CURB MACHINE OPERATOR ROBOT ASSISTED LAPAROSCOPIC COLPOPEXY Encounter for screening laboratory testing for COVID-19 virus in asymptomatic patient 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, complete OAB (overactive bladder) Stress incontinence in female 12/12/2021 7:45 AM CURB MACHINE OPERATOR ABDOMINAL REPAIR OF ENTEROCELE Encounter for screen ing laboratory testing for COVID-19 virus in asymptomatic patient 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, complete OAB (overactive bladder) Stress incontinence in female 12/12/2021 7:45 AM CURB MACHINE OPERATOR ANTERIOR COLPORRHAPHY AND REPAIR OF Encounter for s creening CYSTOCELE WITH/ WITHOUT URETHROCELE laboratory test ing for COVID-19 virus in asymptomatic patient 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, complete OAB (overactive bladder) Stress incontinence in female 12/12/2021 7:45 AM CURB MACHINE OPERATOR POSTERIOR COLPORRHAPHY REPAIR OF Encounter for scre ening RECTOCELE WITH/ WITHOUT PERINEORRHAPHY laboratory t esting for COVID-19 virus in asymptomatic patient 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, complete OAB (overactive bladder) Stress incontinence in female 12/12/2021 7:45 AM CURB MACHINE OPERATOR SLING OPERATION FOR STRESS INCONTINENCE Encounter f or screening laboratory testing for COVID-19 virus in asymptomatic patient 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, complete OAB (overactive bladder) Stress incontinence in female 12/12/2021 7:45 AM CURB MACHINE OPERATOR CYSTOURETHROSCOPY Encounter for screening laboratory testing for COVID-19 virus in asymptomatic patient 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, complete OAB (overactive bladder) Stress incontinence in female 12/12/2021 7:45 AM CURB MACHINE OPERATOR EXAM PELVIS UNDER ANESTHESIA Encounter for screenin g laboratory testing for COVID-19 virus in asymptomatic patient 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, complete OAB (overactive bladder) Stress incontinence in female documented as of this encounter Visit Diagnoses Not on filedocumented in this encounter Additional Health Concerns Noted Time Assessment 09/30/2021 8:20 AM CURB MACHINE OPERATOR A fall risk assessment has been complet ed for the patient 10/11/2021 11:48 AM CURB MACHINE OPERATOR PHQ-2 Depression Total Score: 0 documented as of this encounter Care Teams Start Date End Date Medical Administrator Relationship Specialty 09/28/21 No Pcp, Na PCP - General documented as of this encounter
--- OUTSIDE RECORDS SUMMARY | 2021-11-26 06:02 | XMS REPORT | Encounter Summary ---
Author Author [facility] Organization [facility] Address Unknown Phone Unavailable Care Team Providers Care Principal Network Engineer Name Role Phone No Pcp, Na PCP Unavailable Encounter Details Care Team Description Date Type Department 11/21/2021 Travel Social History Date Tobacco Use Types [...] at Date Recorded Female 11/24/2021 11:30 AM BUSINESS PROCESS MANAGER Date Recorded COVID-19 Exposure Response 11/21/2021 10:31 AM BUSINESS PROCESS MANAGER In the last month, have you been [...] Date Type Specialty Marcela King MD [address] [facility] Lvl [address] [place] [id number] Encounter for screening laboratory testi ng for COVID-19 virus in asymptomatic patient 12/12/2021 Hospital Encounter Ney Mclain MD [address] [id number] [place], [place] [id number] 12/12/2021 Anesthesia Event Marcela King MD [address] [facility] Lvl [address] [place] [address] ROBOT ASSISTED LAPAROSCOPIC SUPRACERVICA L HYSTERECTOMY WITH REMOVAL OF TUBE/ OVARY - UTERUS 250 G OR LESS 12/12/2021 Surgery Date/Time Name Priority Associated Diagnose s 12/12/2021 7:45 AM BUSINESS PROCESS MANAGER ROBOT ASSISTED LAPAROSCOPIC Encounter for screening SUPRACERVICAL HYSTERECTOMY WITH REMOVAL laboratory testing for OF TUBE/ OVARY - UTERUS 250 G OR LESS COVID-19 viru s in asymptomatic patient 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, complete OAB (overactive bladder) Stress incontinence in female 12/12/2021 7:45 AM BUSINESS PROCESS MANAGER ROBOT ASSISTED LAPAROSCOPIC COLPOPEXY Encounter for screening laboratory testing for COVID-19 virus in asymptomatic patient 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, complete OAB (overactive bladder) Stress incontinence in female 12/12/2021 7:45 AM BUSINESS PROCESS MANAGER ABDOMINAL REPAIR OF ENTEROCELE Encounter for screen ing laboratory testing for COVID-19 virus in asymptomatic patient 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, complete OAB (overactive bladder) Stress incontinence in female 12/12/2021 7:45 AM BUSINESS PROCESS MANAGER ANTERIOR COLPORRHAPHY AND REPAIR OF Encounter for s creening CYSTOCELE WITH/ WITHOUT URETHROCELE laboratory test ing for COVID-19 virus in asymptomatic patient 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, complete OAB (overactive bladder) Stress incontinence in female 12/12/2021 7:45 AM BUSINESS PROCESS MANAGER POSTERIOR COLPORRHAPHY REPAIR OF Encounter for scre ening RECTOCELE WITH/ WITHOUT PERINEORRHAPHY laboratory t esting for COVID-19 virus in asymptomatic patient 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, complete OAB (overactive bladder) Stress incontinence in female 12/12/2021 7:45 AM BUSINESS PROCESS MANAGER SLING OPERATION FOR STRESS INCONTINENCE Encounter f or screening laboratory testing for COVID-19 virus in asymptomatic patient 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, complete OAB (overactive bladder) Stress incontinence in female 12/12/2021 7:45 AM BUSINESS PROCESS MANAGER CYSTOURETHROSCOPY Encounter for screening laboratory testing for COVID-19 virus in asymptomatic patient 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, complete OAB (overactive bladder) Stress incontinence in female 12/12/2021 7:45 AM BUSINESS PROCESS MANAGER EXAM PELVIS UNDER ANESTHESIA Encounter for screenin g laboratory testing for COVID-19 virus in asymptomatic patient 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, complete OAB (overactive bladder) Stress incontinence in female documented as of this encounter Visit Diagnoses Not on filedocumented in this encounter Additional Health Concerns Noted Time Assessment 09/30/2021 8:20 AM BUSINESS PROCESS MANAGER A fall risk assessment has been complet ed for the patient 10/11/2021 11:48 AM BUSINESS PROCESS MANAGER PHQ-2 Depression Total Score: 0 documented as of this encounter Care Teams Start Date End Date Principal Network Engineer Relationship Specialty 09/28/21 No Pcp, Na PCP - General documented as of this encounter
--- OUTSIDE RECORDS SUMMARY | 2021-11-26 06:02 | XMS REPORT | Encounter Summary ---
Author Author [facility] Organization [facility] Address Unknown Phone Unavailable Care Team Providers Care Automotive Repair Technician Name Role Phone No Pcp, Na PCP Unavailable Encounter Details Care Team Description Date Type Department Marlyn Espinoza MD [address] [place] [phone] Complete uterovaginal prolapse (Primary Dx) 09/29/2021 Prep for Case Obstetrics and Gynecology: [facility] [address] [place] [address] Social History Date Tobacco Use [...] at Date Recorded Female 11/24/2021 11:30 AM MESSAGING ARCHITECT Date Recorded COVID-19 Exposure Response 09/28/2021 2:59 PM MESSAGING ARCHITECT In the last month, have you been [...] Date Type Specialty Marcela King MD [address] [facility] [address] [phone] Encounter for screening laboratory testi ng for COVID-19 virus in asymptomatic patient 12/12/2021 Hospital Encounter Ney Mclain MD [address] [id number] [place] [address] 12/12/2021 Anesthesia Event Marcela King MD [address] [facility] Lvl [address] [place] [id number] ROBOT ASSISTED LAPAROSCOPIC SUPRACERVICA L HYSTERECTOMY WITH REMOVAL OF TUBE/ OVARY - UTERUS 250 G OR LESS 12/12/2021 Surgery Date/Time Name Priority Associated Diagnose s 12/12/2021 7:45 AM MESSAGING ARCHITECT ROBOT ASSISTED LAPAROSCOPIC Encounter for screening SUPRACERVICAL HYSTERECTOMY WITH REMOVAL laboratory testing for OF TUBE/ OVARY - UTERUS 250 G OR LESS COVID-19 viru s in asymptomatic patient 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, complete OAB (overactive bladder) Stress incontinence in female 12/12/2021 7:45 AM MESSAGING ARCHITECT ROBOT ASSISTED LAPAROSCOPIC COLPOPEXY Encounter for screening laboratory testing for COVID-19 virus in asymptomatic patient 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, complete OAB (overactive bladder) Stress incontinence in female 12/12/2021 7:45 AM MESSAGING ARCHITECT ABDOMINAL REPAIR OF ENTEROCELE Encounter for screen ing laboratory testing for COVID-19 virus in asymptomatic patient 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, complete OAB (overactive bladder) Stress incontinence in female 12/12/2021 7:45 AM MESSAGING ARCHITECT ANTERIOR COLPORRHAPHY AND REPAIR OF Encounter for s creening CYSTOCELE WITH/ WITHOUT URETHROCELE laboratory test ing for COVID-19 virus in asymptomatic patient 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, complete OAB (overactive bladder) Stress incontinence in female 12/12/2021 7:45 AM MESSAGING ARCHITECT POSTERIOR COLPORRHAPHY REPAIR OF Encounter for scre ening RECTOCELE WITH/ WITHOUT PERINEORRHAPHY laboratory t esting for COVID-19 virus in asymptomatic patient 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, complete OAB (overactive bladder) Stress incontinence in female 12/12/2021 7:45 AM MESSAGING ARCHITECT SLING OPERATION FOR STRESS INCONTINENCE Encounter f or screening laboratory testing for COVID-19 virus in asymptomatic patient 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, complete OAB (overactive bladder) Stress incontinence in female 12/12/2021 7:45 AM MESSAGING ARCHITECT CYSTOURETHROSCOPY Encounter for screening laboratory testing for COVID-19 virus in asymptomatic patient 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, complete OAB (overactive bladder) Stress incontinence in female 12/12/2021 7:45 AM MESSAGING ARCHITECT EXAM PELVIS UNDER ANESTHESIA Encounter for screenin g laboratory testing for COVID-19 virus in asymptomatic patient 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, complete OAB (overactive bladder) Stress incontinence in female documented as of this encounter Visit Diagnoses Diagnosis Complete uterovaginal prolapse - Primar y Uterovaginal prolapse, complete Encounter for screening laboratory test ing for COVID-19 virus in asymptomatic patient Pelvic relaxation due to uterovaginal p rolapse, complete Uterovaginal prolapse, complete OAB (overactive bladder) Hypertonicity of bladder Stress incontinence in female Female stress incontinence documented in this encounter Orders First Ordered Date Nursing Count Last Ordered Date COVID-19 TESTING NOT REQUIRED 1 09/29/20 21 documented in this encounter Additional Health Concerns Noted Time Assessment 09/29/2021 10:30 PM MESSAGING ARCHITECT A fall risk assessment has been complet ed for the patient documented as of this encounter Care Teams Start Date End Date Automotive Repair Technician Relationship Specialty 09/28/21 No Pcp, Na PCP - General documented as of this encounter
== END 2021-11-26 06:04 | disposition left against medical advice (07) ==
LOC: EDUNIT# 05:54 → ER 05:58
DX: R39.89 Other symptoms and signs involving the genitourinary system (principal)

== ENCOUNTER 2021-11-26 07:56 | Emergency (ER) | payer MEDICAID ==
[~2021-11-26] VITALS: Ht 162 cm; Wt 63.0 kg
--- OUTSIDE RECORDS SUMMARY | 2021-11-26 08:01 | XMS REPORT | Encounter Summary ---
Author Author [facility] Organization [facility] Address Unknown Phone Unavailable Care Team Providers Care Folded Towel Machine Operator Name Role Phone No Pcp, Na PCP Unavailable Reason for Referral * Outpatient Procedure (Routine) - New Request Diagnoses / Procedures [facility]erred [facility] History of urinary urgency Incomplete uterine prolapse Urinary incontinence, urge Voiding dysfunction Procedures URODYNAMIC STUDIES Marcela King MD [address] [facility] Lvl [address] [place] [id number] Referral ID Status Reason Start Date Expiration Visits Vi sits Date Requested Authorized [id number] New Request 11/21/2021 11/21/2022 1 1 JACK WORKER Reason for Visit * Reason Comments Procedure urd Encounter Details Care Team Description Date Type Department Sakina Tilley PA-C [address] [facility] L[address] [place] [phone] Marcela King MD [address] [facility] Lvl [address] [place] [phone] Suspected UTI (Primary Dx); History of urinary urgency; Incomplete uterine prolapse; Urinary incontinence, urge; Voiding dysfunction 11/21/2021 Procedure visit Urogynecology: [facility] [place] [address] [place] [address] Social History Date Tobacco Use [...] at Date Recorded Female 11/24/2021 11:30 AM GRAB JACK WORKER Date Recorded COVID-19 Exposure Response 11/21/2021 10:31 AM GRAB JACK WORKER In the last month, have you been [...] 65.8 kg (145 lb) 11/21/2021 10:38 AM GRAB JACK WORKER Weight 162.6 cm (5' 4") 11/21/2021 10:38 AM GRAB JACK WORKER Height 24.89 11/21/2021 10:38 AM GRAB JACK WORKER Body Mass Index documented in this encounter [...] Marcela King MD - 11/21/2021 10:00 AM GRAB JACK WORKER Negative urine culture. Please contact patient with normal results. JACK WORKER * Marcela King MD - 11/21/2021 10:00 AM GRAB JACK WORKER Images from the original note were not [...] 3 months (6%) Recurrent vaginal prolapse (65% [place] tissue invoicing machine operator success rate) Infection, hematoma, or keloid/scar tissue at incision site Positioning injury JACK WORKER * Beth Pierre - 11/21/2021 10:00 AM GRAB JACK WORKER Pertinent Review of Systems: - General ROS: [...] the groin area and ot her sites JACK WORKER documented in this encounter Procedure Notes * Marcela King MD - 11/21/2021 10:00 AM GRAB JACK WORKER Associated Order(s): URODYNAMIC STUDIES Procedure(s): ND COMPLX CYSTOMETRO W/VOID PRESS & URETHRAL PROFIL; ND COMPLEX UROFLOMETRY; ND EMG STDS ANAL/URTL SPHNCTR OTH/THN NDL; ND VOID PRESSURE STUDIES INTRAABDOMINAL Pre-Procedure Diagnose(s): History [...] incontinence 5) The voiding pattern was dysfunctional JACK WORKER documented in this encounter Miscellaneous Notes * Patient Instructions - Susan Noyola LPN - 11/21/2021 10:00 AM GRAB JACK WORKER Today you underwent a urodynamics procedure. It [...] Mid back pain Temperature >101.4 degrees Chills JACK WORKER documented in this encounter Plan of Treatment Care Team Description Date Type Specialty Marcela King MD [address] [facility] [address] [place] [phone] Encounter for screening laboratory testi ng for COVID-19 virus in asymptomatic patient 12/12/2021 Hospital Encounter Ney Mclain MD [address] [id number] [place] [address] 12/12/2021 Anesthesia Event Marcela King MD [address] [facility] l [address] [place] [address] ROBOT ASSISTED LAPAROSCOPIC SUPRACERVICA L HYSTERECTOMY WITH REMOVAL OF TUBE/ OVARY - UTERUS 250 G OR LESS 12/12/2021 Surgery Date/Time Name Priority Associated Diagnose s 12/12/2021 7:45 AM GRAB JACK WORKER ROBOT ASSISTED LAPAROSCOPIC Encounter for screening SUPRACERVICAL HYSTERECTOMY WITH REMOVAL laboratory testing for OF TUBE/ OVARY - UTERUS 250 G OR LESS COVID-19 viru s in asymptomatic patient 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, complete OAB (overactive bladder) Stress incontinence in female 12/12/2021 7:45 AM GRAB JACK WORKER ROBOT ASSISTED LAPAROSCOPIC COLPOPEXY Encounter for screening laboratory testing for COVID-19 virus in asymptomatic patient 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, complete OAB (overactive bladder) Stress incontinence in female 12/12/2021 7:45 AM GRAB JACK WORKER ABDOMINAL REPAIR OF ENTEROCELE Encounter for screen ing laboratory testing for COVID-19 virus in asymptomatic patient 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, complete OAB (overactive bladder) Stress incontinence in female 12/12/2021 7:45 AM GRAB JACK WORKER ANTERIOR COLPORRHAPHY AND REPAIR OF Encounter for s creening CYSTOCELE WITH/ WITHOUT URETHROCELE laboratory test ing for COVID-19 virus in asymptomatic patient 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, complete OAB (overactive bladder) Stress incontinence in female 12/12/2021 7:45 AM GRAB JACK WORKER POSTERIOR COLPORRHAPHY REPAIR OF Encounter for scre ening RECTOCELE WITH/ WITHOUT PERINEORRHAPHY laboratory t esting for COVID-19 virus in asymptomatic patient 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, complete OAB (overactive bladder) Stress incontinence in female 12/12/2021 7:45 AM GRAB JACK WORKER SLING OPERATION FOR STRESS INCONTINENCE Encounter f or screening laboratory testing for COVID-19 virus in asymptomatic patient 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, complete OAB (overactive bladder) Stress incontinence in female 12/12/2021 7:45 AM GRAB JACK WORKER CYSTOURETHROSCOPY Encounter for screening laboratory testing for COVID-19 virus in asymptomatic patient 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, complete OAB (overactive bladder) Stress incontinence in female 12/12/2021 7:45 AM GRAB JACK WORKER EXAM PELVIS UNDER ANESTHESIA Encounter for screenin g laboratory testing for COVID-19 virus in asymptomatic patient 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, complete OAB (overactive bladder) Stress incontinence in female documented as of this encounter Procedures Comments Procedure Name Priority Date/Time Associated Diag nosis CULTURE-URINE 11/21/2021 W/SENSITIVITY 11:02 AM GRAB JACK WORKER ND COMPLX CYSTOMETRO Routine 11/21/2021 History o f urinary W/VOID PRESS & URETHRAL 10:00 AM GRAB JACK WORKER urgency PROFIL Incomplete uterine prolapse Urinary incontinence, urge Voiding dysfunction ND COMPLEX UROFLOMETRY Routine 11/21/2021 History of urinary 10:00 AM GRAB JACK WORKER urgency Incomplete uterine prolapse Urinary incontinence, urge Voiding dysfunction ND EMG STDS ANAL/URTL Routine 11/21/2021 History of urinary SPHNCTR OTH/THN NDL 10:00 AM GRAB JACK WORKER urgency Incomplete uterine prolapse Urinary incontinence, urge Voiding dysfunction ND VOID PRESSURE STUDIES Routine 11/21/2021 Histo ry of urinary INTRAABDOMINAL 10:00 AM GRAB JACK WORKER urgency Incomplete uterine prolapse Urinary incontinence, urge Voiding dysfunction documented in this encounter Results * CULTURE-URINE W/SENSITIVITY (11/21/2021 11:02 AM GRAB JACK WORKER) Battery Name URINE CULTURE MAIN LAB Report Status FINAL 11/22/2021 MAIN LAB Specimen URINE MAIN LAB Description Special No special requests [facility] Requests Culture NO GROWTH [facility] Specimen Urine Performing Organization Address City/State/ZIP Code P gomez Number MAIN LAB [address] [place] [address] * ND VOID PRESSURE STUDIES INTRAABDOMINAL, ND EMG STDS ANAL/URTL SPHNCTR OTH/THN NDL, ND COMPLEX UROFLOMETRY, ND COMPLX CYSTOMETRO W/VOID PRESS & URETHRAL PROFIL (11/21/2021 10:00 AM GRAB JACK WORKER) Narrative IN CLINIC - 11/21/2021 10:00 AM GRAB JACK WORKER Marcela King MD 11/21/2021 1:32 PM URODYNAMIC [...] Marcela King MD - 11/21/2021 10:00 AM GRAB JACK WORKER URODYNAMIC CLINIC REPORT Delia Mireles was seen [...] Concerns Noted Time Assessment 09/30/2021 8:20 AM GRAB JACK WORKER A fall risk assessment has been complet ed for the patient 10/11/2021 11:48 AM GRAB JACK WORKER PHQ-2 Depression Total Score: 0 documented as of this encounter Care Teams Start Date End Date Folded Towel Machine Operator Relationship Specialty 09/28/21 No Pcp, Na PCP - General documented as of this encounter
--- OUTSIDE RECORDS SUMMARY | 2021-11-26 08:01 | XMS REPORT | Encounter Summary ---
Author Author [facility] Organization [facility] Address Unknown Phone Unavailable Care Team Providers Care Student Finance Advisor Name Role Phone No Pcp, Na PCP [...] at Date Recorded Female 11/24/2021 11:30 AM SPAR FINISHER Date Recorded COVID-19 Exposure Response 11/21/2021 10:31 AM SPAR FINISHER In the last month, have you been [...] Date Type Specialty Marcela King MD [address] [facility] Lvl [address] [place] [phone] Encounter for screening laboratory testi ng for COVID-19 virus in asymptomatic patient 12/12/2021 Hospital Encounter Ney Mclain MD [address] [id number] [place], [place] [id number] 12/12/2021 Anesthesia Event Marcela King MD [address] [facility] [address]vl [address] [place] [address] ROBOT ASSISTED LAPAROSCOPIC SUPRACERVICA L HYSTERECTOMY WITH REMOVAL OF TUBE/ OVARY - UTERUS 250 G OR LESS 12/12/2021 Surgery Date/Time Name Priority Associated Diagnose s 12/12/2021 7:45 AM SPAR FINISHER ROBOT ASSISTED LAPAROSCOPIC Encounter for screening SUPRACERVICAL HYSTERECTOMY WITH REMOVAL laboratory testing for OF TUBE/ OVARY - UTERUS 250 G OR LESS COVID-19 viru s in asymptomatic patient 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, complete OAB (overactive bladder) Stress incontinence in female 12/12/2021 7:45 AM SPAR FINISHER ROBOT ASSISTED LAPAROSCOPIC COLPOPEXY Encounter for screening laboratory testing for COVID-19 virus in asymptomatic patient 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, complete OAB (overactive bladder) Stress incontinence in female 12/12/2021 7:45 AM SPAR FINISHER ABDOMINAL REPAIR OF ENTEROCELE Encounter for screen ing laboratory testing for COVID-19 virus in asymptomatic patient 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, complete OAB (overactive bladder) Stress incontinence in female 12/12/2021 7:45 AM SPAR FINISHER ANTERIOR COLPORRHAPHY AND REPAIR OF Encounter for s creening CYSTOCELE WITH/ WITHOUT URETHROCELE laboratory test ing for COVID-19 virus in asymptomatic patient 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, complete OAB (overactive bladder) Stress incontinence in female 12/12/2021 7:45 AM SPAR FINISHER POSTERIOR COLPORRHAPHY REPAIR OF Encounter for scre ening RECTOCELE WITH/ WITHOUT PERINEORRHAPHY laboratory t esting for COVID-19 virus in asymptomatic patient 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, complete OAB (overactive bladder) Stress incontinence in female 12/12/2021 7:45 AM SPAR FINISHER SLING OPERATION FOR STRESS INCONTINENCE Encounter f or screening laboratory testing for COVID-19 virus in asymptomatic patient 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, complete OAB (overactive bladder) Stress incontinence in female 12/12/2021 7:45 AM SPAR FINISHER CYSTOURETHROSCOPY Encounter for screening laboratory testing for COVID-19 virus in asymptomatic patient 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, complete OAB (overactive bladder) Stress incontinence in female 12/12/2021 7:45 AM SPAR FINISHER EXAM PELVIS UNDER ANESTHESIA Encounter for screenin g laboratory testing for COVID-19 virus in asymptomatic patient 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, complete OAB (overactive bladder) Stress incontinence in female documented as of this encounter Visit Diagnoses Not on filedocumented in this encounter Additional Health Concerns Noted Time Assessment 09/30/2021 8:20 AM SPAR FINISHER A fall risk assessment has been complet ed for the patient 10/11/2021 11:48 AM SPAR FINISHER PHQ-2 Depression Total Score: 0 documented as of this encounter Care Teams Start Date End Date Student Finance Advisor Relationship Specialty 09/28/21 No Pcp, Na PCP - General documented as of this encounter
--- OUTSIDE RECORDS SUMMARY | 2021-11-26 08:01 | XMS REPORT | Encounter Summary ---
Author Author [facility] Organization [facility] Address Unknown Phone Unavailable Care Team Providers Care Pneumatic Tester Name Role Phone No Pcp, Na PCP Unavailable Encounter Details Care Team Description Date Type Department Marcela King MD [address] [facility] [address] [address] Pelvic relaxation due to uterovaginal pr olapse, complete (Primary Dx); Encounter for screening laboratory testing for COVID-19 virus in asymptomatic patient; OAB (overactive bladder); Stress incontinence in female 11/06/2021 Prep for Case Urogynecology: [facility], [facility] [address], [place] [address] Social History Date Tobacco Use [...] at Date Recorded Female 11/24/2021 11:30 AM POWDER CORE TESTER Date Recorded COVID-19 Exposure Response 10/11/2021 11:34 AM POWDER CORE TESTER In the last month, have you [...] 6 tablet 0 mg tabletIndications: at the [facility] pre-surgical following preparation times: *1pm: take 2 [...] MD [address] [facility] [address] [place] [address] Encounter for screening laboratory testi ng for COVID-19 virus in asymptomatic patient 12/12/2021 Hospital Encounter Ney Mclain MD [id number] [place] [address] 12/12/2021 Anesthesia Event Marcela King MD [address] [facility] [address] [place] [address] ROBOT ASSISTED LAPAROSCOPIC SUPRACERVICA L HYSTERECTOMY [...] Priority Associated Diagnose s 12/12/2021 7:45 AM POWDER CORE TESTER ROBOT ASSISTED LAPAROSCOPIC Encounter for screening SUPRACERVICAL HYSTERECTOMY WITH REMOVAL laboratory testing for OF TUBE/ OVARY - UTERUS 250 G OR LESS COVID-19 viru s in asymptomatic patient 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, complete OAB (overactive bladder) Stress incontinence in female 12/12/2021 7:45 AM POWDER CORE TESTER ROBOT ASSISTED LAPAROSCOPIC COLPOPEXY Encounter for screening laboratory testing for COVID-19 virus in asymptomatic patient 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, complete OAB (overactive bladder) Stress incontinence in female 12/12/2021 7:45 AM POWDER CORE TESTER ABDOMINAL REPAIR OF ENTEROCELE Encounter for screen ing laboratory testing for COVID-19 virus in asymptomatic patient 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, complete OAB (overactive bladder) Stress incontinence in female 12/12/2021 7:45 AM POWDER CORE TESTER ANTERIOR COLPORRHAPHY AND REPAIR OF Encounter for s creening CYSTOCELE WITH/ WITHOUT URETHROCELE laboratory test ing for COVID-19 virus in asymptomatic patient 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, complete OAB (overactive bladder) Stress incontinence in female 12/12/2021 7:45 AM POWDER CORE TESTER POSTERIOR COLPORRHAPHY REPAIR OF Encounter for scre ening RECTOCELE WITH/ WITHOUT PERINEORRHAPHY laboratory t esting for COVID-19 virus in asymptomatic patient 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, complete OAB (overactive bladder) Stress incontinence in female 12/12/2021 7:45 AM POWDER CORE TESTER SLING OPERATION FOR STRESS INCONTINENCE Encounter f or screening laboratory testing for COVID-19 virus in asymptomatic patient 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, complete OAB (overactive bladder) Stress incontinence in female 12/12/2021 7:45 AM POWDER CORE TESTER CYSTOURETHROSCOPY Encounter for screening laboratory testing for COVID-19 virus in asymptomatic patient 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, complete OAB (overactive bladder) Stress incontinence in female 12/12/2021 7:45 AM POWDER CORE TESTER EXAM PELVIS UNDER ANESTHESIA Encounter for [...] Concerns Noted Time Assessment 09/30/2021 8:20 AM POWDER CORE TESTER A fall risk assessment has been complet ed for the patient 10/11/2021 11:48 AM POWDER CORE TESTER PHQ-2 Depression Total Score: 0 documented as of this encounter Care Teams Start Date End Date Pneumatic Tester Relationship Specialty 09/28/21 No Pcp, Na PCP - General documented as of this encounter
--- OUTSIDE RECORDS SUMMARY | 2021-11-26 08:01 | XMS REPORT | Encounter Summary ---
Author Author [facility] Organization [facility] Address Unknown Phone Unavailable Care Team Providers Care Knife Setter Assembler Name Role Phone No Pcp, Na PCP Unavailable Reason for Visit * Reason Comments Consult Encounter Details Care Team Description Date Type Department Marcela King MD [address] [facility] [address] [phone] Arrived 11/21/2021 Office Visit Urogynecology: Main [place], [facility] [place] [address], [place] [id number] Social History Date Tobacco Use Types Packs/Day [...] at Date Recorded Female 11/24/2021 11:30 AM COATER CARBON PAPER Date Recorded COVID-19 Exposure Response 11/21/2021 10:31 AM COATER CARBON PAPER In the last month, have you been in contact with No / Unsure someone who was confirmed or suspected to have Coronavirus / COVID-19? documented as of this encounter Last Filed Vital Signs Reading Time Taken Comments Vital Sign 124/88 11/21/2021 1:07 PM COATER CARBON PAPER Blood Pressure 94 11/21/2021 1:07 PM COATER CARBON PAPER Pulse - - Temperature - - Respiratory Rate - - Oxygen Saturation - - Inhaled Oxygen Concentration 65.3 kg (144 lb) 11/21/2021 1:07 PM COATER CARBON PAPER Weight 162.6 cm (5' 4.02") 11/21/2021 1:07 PM COATER CARBON PAPER Height 24.71 11/21/2021 1:07 PM COATER CARBON PAPER Body Mass Index documented in this encounter [...] Date Type Specialty Marcela King MD [address] [facility] Lvl [address] [place] [phone] Encounter for screening laboratory testi ng for COVID-19 virus in asymptomatic patient 12/12/2021 Hospital Encounter Ney Mclain MD [address] [place] [address] 12/12/2021 Anesthesia Event Marcela King MD [address] [facility] Lvl [address] [place] [address] ROBOT ASSISTED LAPAROSCOPIC SUPRACERVICA L HYSTERECTOMY WITH REMOVAL OF TUBE/ OVARY - UTERUS 250 G OR LESS 12/12/2021 Surgery Date/Time Name Priority Associated Diagnose s 12/12/2021 7:45 AM COATER CARBON PAPER ROBOT ASSISTED LAPAROSCOPIC Encounter for screening SUPRACERVICAL HYSTERECTOMY WITH REMOVAL laboratory testing for OF TUBE/ OVARY - UTERUS 250 G OR LESS COVID-19 viru s in asymptomatic patient 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, complete OAB (overactive bladder) Stress incontinence in female 12/12/2021 7:45 AM COATER CARBON PAPER ROBOT ASSISTED LAPAROSCOPIC COLPOPEXY Encounter for screening laboratory testing for COVID-19 virus in asymptomatic patient 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, complete OAB (overactive bladder) Stress incontinence in female 12/12/2021 7:45 AM COATER CARBON PAPER ABDOMINAL REPAIR OF ENTEROCELE Encounter for screen ing laboratory testing for COVID-19 virus in asymptomatic patient 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, complete OAB (overactive bladder) Stress incontinence in female 12/12/2021 7:45 AM COATER CARBON PAPER ANTERIOR COLPORRHAPHY AND REPAIR OF Encounter for s creening CYSTOCELE WITH/ WITHOUT URETHROCELE laboratory test ing for COVID-19 virus in asymptomatic patient 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, complete OAB (overactive bladder) Stress incontinence in female 12/12/2021 7:45 AM COATER CARBON PAPER POSTERIOR COLPORRHAPHY REPAIR OF Encounter for scre ening RECTOCELE WITH/ WITHOUT PERINEORRHAPHY laboratory t esting for COVID-19 virus in asymptomatic patient 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, complete OAB (overactive bladder) Stress incontinence in female 12/12/2021 7:45 AM COATER CARBON PAPER SLING OPERATION FOR STRESS INCONTINENCE Encounter f or screening laboratory testing for COVID-19 virus in asymptomatic patient 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, complete OAB (overactive bladder) Stress incontinence in female 12/12/2021 7:45 AM COATER CARBON PAPER CYSTOURETHROSCOPY Encounter for screening laboratory testing for COVID-19 virus in asymptomatic patient 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, complete OAB (overactive bladder) Stress incontinence in female 12/12/2021 7:45 AM COATER CARBON PAPER EXAM PELVIS UNDER ANESTHESIA Encounter for screenin g laboratory testing for COVID-19 virus in asymptomatic patient 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, complete OAB (overactive bladder) Stress incontinence in female documented as of this encounter Visit Diagnoses Not on filedocumented in this encounter Additional Health Concerns Noted Time Assessment 09/30/2021 8:20 AM COATER CARBON PAPER A fall risk assessment has been complet ed for the patient 10/11/2021 11:48 AM COATER CARBON PAPER PHQ-2 Depression Total Score: 0 documented as of this encounter Care Teams Start Date End Date Knife Setter Assembler Relationship Specialty 09/28/21 No Pcp, Na PCP - General documented as of this encounter
--- OUTSIDE RECORDS SUMMARY | 2021-11-26 08:01 | XMS REPORT | Encounter Summary ---
Author Author [facility] Organization [facility] Address Unknown Phone Unavailable Care Team Providers Care White [employer]wall Tire Buffer Name Role Phone No Pcp, Na PCP Unavailable Reason for Visit * Reason Onset Date Comments General Question 11/26/2021 Encounter Details Care Team Description Date Type Department Faiza Cormier MD [address] [place] [phone] General Question 11/26/2021 Telephone Obstetrics and Gynecology: Main [place], [address], [address] [place] [address] Social History Date Tobacco Use [...] at Date Recorded Female 11/24/2021 11:30 AM EVP MANAGING DIRECTOR Date Recorded COVID-19 Exposure Response 11/21/2021 10:31 AM EVP MANAGING DIRECTOR In the last month, have you been in contact with No / Unsure someone who was confirmed or suspected to have Coronavirus / COVID-19? documented as of this encounter Functional Status Date of Assessment Functional Status Response 09/29/2021 Does the patient have a hearing impairment: No documented as of this encounter Miscellaneous Notes * Telephone Encounter - Faiza Cormier MD - 11/26/2021 4:36 AM EVP MANAGING DIRECTOR Telephone Encounter Patient calls with concerns about her pessary. She is concerned that it has shif ирина and is causing obstruction of her urinary flow and bowels. She reports her l ast BM was last night and she urinated a small amount several hours ago but is w orried that she has additional urine that is not draining. She has not tried to remove the pessary and states she would not be able to do that on her own. She a lso reports pelvic pain. She has not tried using any pain medications. She does not currently use a bowel regimen. We discussed that a complete obstruction of her bladder or bowel is unlikely, as she is still passing stool and urine. I recommended she start tylenol or ibupro fen for discomfort as well as a stool softener to relieve pain associated with c onstipation. We also discussed that if her pain is so severe that it cannot be m anaged at home, she should present to her nearest Emergency Department. I also c ounseled her to present for evaluation if she goes more than 6 hours without marlon ng able to void. The patient expressed concern that her local Emergency Department would not be a ble to remove and reinsert her pessary correctly. She does not feel comfortable attempting removal at home. I provided reassurance and offered to see her in the Emergency Department, however patient reports she lives 3 hours away and wou ld not be able to come. She plans to go to her local hospital at this time. She had no other questions or concerns. Faiza Cormier MD PGY-2 Obstetrics & Gynecology MANAGING DIRECTOR documented in this encounter Plan of Treatment Care Team Description Date Type Specialty Marcela King MD [address] [facility] [address] [place], [place] [phone] Encounter for screening laboratory testi ng for COVID-19 virus in asymptomatic patient 12/12/2021 Hospital Encounter Ney Mclain MD [address] [id number] [place], [place] [id number] 12/12/2021 Anesthesia Event Marcela King MD [address] [facility] [address] [place] [address] ROBOT ASSISTED LAPAROSCOPIC SUPRACERVICA L HYSTERECTOMY WITH REMOVAL OF TUBE/ OVARY - UTERUS 250 G OR LESS 12/12/2021 Surgery Date/Time Name Priority Associated Diagnose s 12/12/2021 7:45 AM EVP MANAGING DIRECTOR ROBOT ASSISTED LAPAROSCOPIC Encounter for screening SUPRACERVICAL HYSTERECTOMY WITH REMOVAL laboratory testing for OF TUBE/ OVARY - UTERUS 250 G OR LESS COVID-19 viru s in asymptomatic patient 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, complete OAB (overactive bladder) Stress incontinence in female 12/12/2021 7:45 AM EVP MANAGING DIRECTOR ROBOT ASSISTED LAPAROSCOPIC COLPOPEXY Encounter for screening laboratory testing for COVID-19 virus in asymptomatic patient 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, complete OAB (overactive bladder) Stress incontinence in female 12/12/2021 7:45 AM EVP MANAGING DIRECTOR ABDOMINAL REPAIR OF ENTEROCELE Encounter for screen ing laboratory testing for COVID-19 virus in asymptomatic patient 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, complete OAB (overactive bladder) Stress incontinence in female 12/12/2021 7:45 AM EVP MANAGING DIRECTOR ANTERIOR COLPORRHAPHY AND REPAIR OF Encounter for s creening CYSTOCELE WITH/ WITHOUT URETHROCELE laboratory test ing for COVID-19 virus in asymptomatic patient 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, complete OAB (overactive bladder) Stress incontinence in female 12/12/2021 7:45 AM EVP MANAGING DIRECTOR POSTERIOR COLPORRHAPHY REPAIR OF Encounter for scre ening RECTOCELE WITH/ WITHOUT PERINEORRHAPHY laboratory t esting for COVID-19 virus in asymptomatic patient 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, complete OAB (overactive bladder) Stress incontinence in female 12/12/2021 7:45 AM EVP MANAGING DIRECTOR SLING OPERATION FOR STRESS INCONTINENCE Encounter f or screening laboratory testing for COVID-19 virus in asymptomatic patient 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, complete OAB (overactive bladder) Stress incontinence in female 12/12/2021 7:45 AM EVP MANAGING DIRECTOR CYSTOURETHROSCOPY Encounter for screening laboratory testing for COVID-19 virus in asymptomatic patient 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, complete OAB (overactive bladder) Stress incontinence in female 12/12/2021 7:45 AM EVP MANAGING DIRECTOR EXAM PELVIS UNDER ANESTHESIA Encounter for screenin g laboratory testing for COVID-19 virus in asymptomatic patient 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, complete OAB (overactive bladder) Stress incontinence in female documented as of this encounter Visit Diagnoses Not on filedocumented in this encounter Additional Health Concerns Noted Time Assessment 11/25/2021 2:11 PM EVP MANAGING DIRECTOR A fall risk assessment has been complet ed for the patient 10/11/2021 11:48 AM EVP MANAGING DIRECTOR PHQ-2 Depression Total Score: 0 documented as of this encounter Care Teams Start Date End Date White Sidewall Tire Buffer Relationship Specialty 09/28/21 No Pcp, Na PCP - General documented as of this encounter
--- OUTSIDE RECORDS SUMMARY | 2021-11-26 08:01 | XMS REPORT | Encounter Summary ---
Author Author [facility] Organization [facility] Address Unknown Phone Unavailable Care Team Providers Care Mill Order Scheduler Name Role Phone No Pcp, Na PCP Unavailable Reason for Visit * Reason Onset Date Comments Results 10/18/2021 Encounter Details Care Team Description Date Type Department Hand, Sakina Sawyer PA-C [address] [facility] [address] [phone] Results 10/18/2021 Telephone Urogynecology: Main [place], Medical [place] [address] [place] [address] Social History Date Tobacco Use [...] at Date Recorded Female 11/24/2021 11:30 AM TREASURER SAVINGS BANK Date Recorded COVID-19 Exposure Response 10/11/2021 11:34 AM TREASURER SAVINGS BANK In the last month, have you been [...] Alexandra Mckoy BSN - 10/18/2021 5:17 PM TREASURER S[employer]INGS [employer] LM for pt to CB re: results. [employer] * Telephone Encounter - Alexandra Mckoy BSN - 10/18/2021 5:17 PM TREASUR[employer] ----- Message from Sakina Tilley PA-C sent at 10/14/2021 9:13 AM TREASURER S[employer]INGS [employer]ANK ----- Please contact pt with result - urine culture consistent with contamination. If not having UTI sx, no further culture needed. If having UTI sx, please place ord er for repeat culture with attention to clean catch process. It looks like from her chart she may need UDS rescheduled, so depending on when that is, we could w ait to collect sample then. [employer] documented in this encounter Plan of Treatment Care Team Description Date Type Specialty Marcela King MD [address] [place] [facility] [address] [place] [address] Encounter for screening laboratory testi ng for COVID-19 virus in asymptomatic patient 12/12/2021 Hospital Encounter Ney Mclain MD [id number] [place] [address] 12/12/2021 Anesthesia Event Marcela King MD [address] [facility] L[address] [place] [address] ROBOT ASSISTED LAPAROSCOPIC SUPRACERVICA L HYSTERECTOMY WITH REMOVAL OF TUBE/ OVARY - UTERUS 250 G OR LESS 12/12/2021 Surgery Date/Time Name Priority Associated Diagnose s 12/12/2021 7:45 AM TREASURER SAVINGS BANK ROBOT ASSISTED LAPAROSCOPIC Encounter for screening SUPRACERVICAL HYSTERECTOMY WITH REMOVAL laboratory testing for OF TUBE/ OVARY - UTERUS 250 G OR LESS COVID-19 viru s in asymptomatic patient 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, complete OAB (overactive bladder) Stress incontinence in female 12/12/2021 7:45 AM TREASURER S[employer]INGS [employer]ANK ROBOT ASSISTED LAPAROSCOPIC COLPOPEXY Encounter for screening laboratory testing for COVID-19 virus in asymptomatic patient 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, complete OAB (overactive bladder) Stress incontinence in female 12/12/2021 7:45 AM TREASURER S[employer]INGS BANK ABDOMINAL REPAIR OF ENTEROCELE Encounter for screen ing laboratory testing for COVID-19 virus in asymptomatic patient 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, complete OAB (overactive bladder) Stress incontinence in female 12/12/2021 7:45 AM TREASURER SAVINGS BANK ANTERIOR COLPORRHAPHY AND REPAIR OF Encounter for s creening CYSTOCELE WITH/ WITHOUT URETHROCELE laboratory test ing for COVID-19 virus in asymptomatic patient 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, complete OAB (overactive bladder) Stress incontinence in female 12/12/2021 7:45 AM TREASURER S[employer]INGS [employer]ANK POSTERIOR COLPORRHAPHY REPAIR OF Encounter for scre ening RECTOCELE WITH/ WITHOUT PERINEORRHAPHY laboratory t esting for COVID-19 virus in asymptomatic patient 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, complete OAB (overactive bladder) Stress incontinence in female 12/12/2021 7:45 AM TREASURER SAVINGS BANK SLING OPERATION FOR STRESS INCONTINENCE Encounter f or screening laboratory testing for COVID-19 virus in asymptomatic patient 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, complete OAB (overactive bladder) Stress incontinence in female 12/12/2021 7:45 AM TREASURER SAVINGS BANK CYSTOURETHROSCOPY Encounter for screening laboratory testing for COVID-19 virus in asymptomatic patient Pelvic relaxation due to uterovaginal prolapse, complete OAB (overactive bladder) Stress incontinence in female 12/12/2021 7:45 AM TREASURER SAVINGS BANK EXAM PELVIS UNDER ANESTHESIA Encounter for screenin g laboratory testing for COVID-19 virus in asymptomatic patient Pelvic relaxation due to uterovaginal prolapse, complete OAB (overactive bladder) Stress incontinence in female documented as of this encounter Visit Diagnoses Not on filedocumented in this encounter Additional Health Concerns Noted Time Assessment 09/30/2021 8:20 AM TREASURER SAVINGS BANK A fall risk assessment has been complet ed for the patient 10/11/2021 11:48 AM TREASURER S[employer]INGS [employer]ANK PHQ-2 Depression Total Score: 0 documented as of this encounter Care Teams Start Date End Date Mill Order Scheduler Relationship Specialty 09/28/21 No Pcp, Na PCP - General documented as of this encounter
--- OUTSIDE RECORDS SUMMARY | 2021-11-26 08:01 | XMS REPORT | Encounter Summary ---
Author Author [facility] Organization [facility] Address Unknown Phone Unavailable Care Team Providers Care District Plant Engineer Name Role Phone No Pcp, Na PCP Unavailable Reason for Visit * Reason Onset Date Comments Follow-up Phone Call 11/23/2021 Encounter Details Care Team Description Date Type Department Marcela King MD [address] [facility] [address] [id number] Follow-up Phone Call 11/23/2021 Telephone Urogynecology: [facility], [facility] [address] [place] [address] Social History Date Tobacco Use [...] at Date Recorded Female 11/24/2021 11:30 AM KILN HAND Date Recorded COVID-19 Exposure Response 11/21/2021 10:31 AM KILN HAND In the last month, have you been [...] Susan Noyola LPN - 11/23/2021 10:13 AM KILN HAND Attempted to contact this patient to inform her that her results were negative. Her vm was full and I was unable to leave a message or follow up from her mother 's call to our staff yesterday. HAND documented in this encounter Plan of Treatment Care Team Description Date Type Specialty Marcela King MD [address] [facility] [address] [place] [id number] Encounter for screening laboratory testi ng for COVID-19 virus in asymptomatic patient 12/12/2021 Hospital Encounter Ney Mclain MD [address] [id number] [place] [address] 12/12/2021 Anesthesia Event Marcela King MD [address] [facility] [address] [place] [id number] ROBOT ASSISTED LAPAROSCOPIC SUPRACERVICA L HYSTERECTOMY WITH REMOVAL OF TUBE/ OVARY - UTERUS 250 G OR LESS 12/12/2021 Surgery Date/Time Name Priority Associated Diagnose s 12/12/2021 7:45 AM KILN HAND ROBOT ASSISTED LAPAROSCOPIC Encounter for screening SUPRACERVICAL HYSTERECTOMY WITH REMOVAL laboratory testing for OF TUBE/ OVARY - UTERUS 250 G OR LESS COVID-19 viru s in asymptomatic patient Pelvic relaxation due to uterovaginal prolapse, complete OAB (overactive bladder) Stress incontinence in female 12/12/2021 7:45 AM KILN HAND ROBOT ASSISTED LAPAROSCOPIC COLPOPEXY Encounter for screening laboratory testing for COVID-19 virus in asymptomatic patient Pelvic relaxation due to uterovaginal prolapse, complete OAB (overactive bladder) Stress incontinence in female 12/12/2021 7:45 AM KILN HAND ABDOMINAL REPAIR OF ENTEROCELE Encounter for screen ing laboratory testing for COVID-19 virus in asymptomatic patient Pelvic relaxation due to uterovaginal prolapse, complete OAB (overactive bladder) Stress incontinence in female 12/12/2021 7:45 AM KILN HAND ANTERIOR COLPORRHAPHY AND REPAIR OF Encounter for s creening CYSTOCELE WITH/ WITHOUT URETHROCELE laboratory test ing for COVID-19 virus in asymptomatic patient Pelvic relaxation due to uterovaginal prolapse, complete OAB (overactive bladder) Stress incontinence in female 12/12/2021 7:45 AM KILN HAND POSTERIOR COLPORRHAPHY REPAIR OF Encounter for scre ening RECTOCELE WITH/ WITHOUT PERINEORRHAPHY laboratory t esting for COVID-19 virus in asymptomatic patient Pelvic relaxation due to uterovaginal prolapse, complete OAB (overactive bladder) Stress incontinence in female 12/12/2021 7:45 AM KILN HAND SLING OPERATION FOR STRESS INCONTINENCE Encounter f or screening laboratory testing for COVID-19 virus in asymptomatic patient Pelvic relaxation due to uterovaginal prolapse, complete OAB (overactive bladder) Stress incontinence in female 12/12/2021 7:45 AM KILN HAND CYSTOURETHROSCOPY Encounter for screening laboratory testing for COVID-19 virus in asymptomatic patient Pelvic relaxation due to uterovaginal prolapse, complete OAB (overactive bladder) Stress incontinence in female 12/12/2021 7:45 AM KILN HAND EXAM PELVIS UNDER ANESTHESIA Encounter for screenin g laboratory testing for COVID-19 virus in asymptomatic patient Pelvic relaxation due to uterovaginal prolapse, complete OAB (overactive bladder) Stress incontinence in female documented as of this encounter Visit Diagnoses Not on filedocumented in this encounter Additional Health Concerns Noted Time Assessment 09/30/2021 8:20 AM KILN HAND A fall risk assessment has been complet ed for the patient 10/11/2021 11:48 AM KILN HAND PHQ-2 Depression Total Score: 0 documented as of this encounter Care Teams Start Date End Date District Plant Engineer Relationship Specialty 09/28/21 No Pcp, Na PCP - General documented as of this encounter
--- OUTSIDE RECORDS SUMMARY | 2021-11-26 08:01 | XMS REPORT | Encounter Summary ---
Author Author [facility] Organization [facility] Address Unknown Phone Unavailable Care Team Providers Care Pile Driver Engineer Name Role Phone No Pcp, Na PCP Unavailable Encounter Details Care Team Description Date Type Department Marlyn Espinoza MD [address] [place] [phone] Complete uterovaginal prolapse (Primary Dx) 09/29/2021 Prep for Case Obstetrics and Gynecology: [facility] [address] [place] [address] Social History Date Tobacco Use [...] at Date Recorded Female 11/24/2021 11:30 AM SAP BASIS ARCHITECT Date Recorded COVID-19 Exposure Response 09/28/2021 2:59 PM SAP BASIS ARCHITECT In the last month, have you [...] Date Type Specialty Marcela King MD [address] [facility] [address] [phone] Encounter for screening laboratory testi ng for COVID-19 virus in asymptomatic patient 12/12/2021 Hospital Encounter Ney Mclain MD [id number] [place] [address] 12/12/2021 Anesthesia Event Marcela King MD [address] [facility] Lvl [address] [place] [id number] ROBOT ASSISTED LAPAROSCOPIC SUPRACERVICA L HYSTERECTOMY WITH REMOVAL OF TUBE/ OVARY - UTERUS 250 G OR LESS 12/12/2021 Surgery Date/Time Name Priority Associated Diagnose s 12/12/2021 7:45 AM SAP BASIS ARCHITECT ROBOT ASSISTED LAPAROSCOPIC Encounter for screening SUPRACERVICAL HYSTERECTOMY WITH REMOVAL laboratory testing for OF TUBE/ OVARY - UTERUS 250 G OR LESS COVID-19 viru s in asymptomatic patient Pelvic relaxation due to uterovaginal prolapse, complete OAB (overactive bladder) Stress incontinence in female 12/12/2021 7:45 AM SAP BASIS ARCHITECT ROBOT ASSISTED LAPAROSCOPIC COLPOPEXY Encounter for screening laboratory testing for COVID-19 virus in asymptomatic patient Pelvic relaxation due to uterovaginal prolapse, complete OAB (overactive bladder) Stress incontinence in female 12/12/2021 7:45 AM SAP BASIS ARCHITECT ABDOMINAL REPAIR OF ENTEROCELE Encounter for screen ing laboratory testing for COVID-19 virus in asymptomatic patient Pelvic relaxation due to uterovaginal prolapse, complete OAB (overactive bladder) Stress incontinence in female 12/12/2021 7:45 AM SAP BASIS ARCHITECT ANTERIOR COLPORRHAPHY AND REPAIR OF Encounter for s creening CYSTOCELE WITH/ WITHOUT URETHROCELE laboratory test ing for COVID-19 virus in asymptomatic patient Pelvic relaxation due to uterovaginal prolapse, complete OAB (overactive bladder) Stress incontinence in female 12/12/2021 7:45 AM SAP BASIS ARCHITECT POSTERIOR COLPORRHAPHY REPAIR OF Encounter for scre ening RECTOCELE WITH/ WITHOUT PERINEORRHAPHY laboratory t esting for COVID-19 virus in asymptomatic patient Pelvic relaxation due to uterovaginal prolapse, complete OAB (overactive bladder) Stress incontinence in female 12/12/2021 7:45 AM SAP BASIS ARCHITECT SLING OPERATION FOR STRESS INCONTINENCE Encounter f or screening laboratory testing for COVID-19 virus in asymptomatic patient Pelvic relaxation due to uterovaginal prolapse, complete OAB (overactive bladder) Stress incontinence in female 12/12/2021 7:45 AM SAP BASIS ARCHITECT CYSTOURETHROSCOPY Encounter for screening laboratory testing for COVID-19 virus in asymptomatic patient Pelvic relaxation due to uterovaginal prolapse, complete OAB (overactive bladder) Stress incontinence in female 12/12/2021 7:45 AM SAP BASIS ARCHITECT EXAM PELVIS UNDER ANESTHESIA Encounter for [...] Concerns Noted Time Assessment 09/29/2021 10:30 PM SAP BASIS ARCHITECT A fall risk assessment has been complet ed for the patient documented as of this encounter Care Teams Start Date End Date Pile Driver Engineer Relationship Specialty 09/28/21 No Pcp, Na PCP - General documented as of this encounter
[2021-11-26] MEDS ORDERED: fentaNYL INJ 100 MCG/2 ML AMP IVP ONE ×2 (08:30→10:45)
[2021-11-26] MEDS ORDERED: LORazepam INJ 2 MG/ML (ATIVAN) VIAL IVP ONE (08:45)
[2021-11-26 09:11] LABS: BASOPHILS % (AUTO) 0 % (0-10); EOSINOPHILS # (AUTO) 0.2 10^3/uL (0.0-0.3); EOSINOPHILS % (AUTO) 2 % (0-10); HEMATOCRIT 36 % (35-52); LYMPHOCYTES % (AUTO) 12 % (12-44); MEAN CORPUSCULAR HEMOGLOBIN 28 pg (25-34); MEAN CORPUSCULAR HGB CONC 33 g/dL (32-36); MEAN CORPUSCULAR VOLUME 85 fL (80-99); MEAN PLATELET VOLUME 9.7 fL (9.0-12.2); MONOCYTES # (AUTO) 0.6 10^3/uL (0.0-1.0); MONOCYTES % (AUTO) 7 % (0-12); NEUTROPHILS % (AUTO) 79 % (42-75); PLATELET COUNT 322 10^3/uL (130-400); WHITE BLOOD COUNT 8.8 10^3/uL (4.3-11.0)
[2021-11-26] MEDS ORDERED: morphine INJ 10 MG/ML 1ML (SYR OR VIAL) IVP STA (09:13)
[2021-11-26 09:21] LABS: ALBUMIN 3.9 GM/DL (3.2-4.5); POTASSIUM 3.9 MMOL/L (3.6-5.0)
[2021-11-26 09:22] LABS: CALCIUM 8.8 MG/DL (8.5-10.1)
[2021-11-26 09:23] LABS: TOTAL PROTEIN 6.7 GM/DL (6.4-8.2)
[2021-11-26 09:25] LABS: BILIRUBIN,TOTAL 0.3 MG/DL (0.1-1.0)
[2021-11-26 09:27] LABS: CREATININE SERUM 0.83 MG/DL (0.60-1.30)
[2021-11-26] MEDS ORDERED: LORazepam INJ 2 MG/ML (ATIVAN) VIAL ONE (10:02)
[2021-11-26] MEDS ORDERED: NS IV 1000 ML 1,000 ML ONE (10:40)
[2021-11-26] MEDS ORDERED: ETOMIDATE IV SOLN 20 MG/10 ML VIAL IV ONE (10:45)
[2021-11-26 11:23] LABS: BILIRUBIN,URINE NEGATIVE (NEGATIVE); CLARITY,URINE CLEAR; COLOR,URINE YELLOW; GLUCOSE, URINE (UA) NEGATIVE (NEGATIVE); KETONES,URINE NEGATIVE (NEGATIVE); LEUKOCYTE ESTERASE ,URINE NEGATIVE (NEGATIVE); NITRITE,URINE NEGATIVE (NEGATIVE); PROTEIN,URINE NEGATIVE (NEGATIVE)
[2021-11-26 11:30] LABS: BACTERIA,URINE NEGATIVE /HPF
--- NOTE | 2021-11-26 11:57 | ED GU-Female ---
General Chief Complaint: - Reproductive Stated Complaint: PELVIC PAIN/UNABLE TO URINATE Nursing Triage Note: PT AMB TO [facility] PT CO OF VAGINAL PAIN 08/21, STATES PESSARY MOVED NOT IN RIGHT PLACE. UPON EXAM, PT HAS LARGE VAGINAL PROLAPSE NOTED. STATES SUPPOSED TO HAVE SURGERY ON 12/12/21 FOR REPAIR, STATES MOVED LAST PM. PT CRYING, THRASHING AROUND, STAFF UNABLE TO GET V/S D/T THRASHING, PT WAS HERE EARLIER IN AM LEFT AND HAS COME BACK. Source: patient, family Exam Limitations: no limitations History of Present Illness Date Seen by Provider: Nov 26, 2021 Time Seen by Provider: 08:23 Initial Comments This 41-year-old woman presents to the emergency room accompanied by family member with complaints of severe pelvic pain since having her pessary adjusted on November 21. She also states she has been unable to urinate for about 12 hours. Patient is in moderate distress and is a relatively poor historian. She did not reveal to this provider that she actually had a complete vaginal prolapse at the time of interview. This was discovered on examination. Her gy necologic provider is Dr. King at [facility]. She reports having a fever Sunday through Sunday but is afebrile at present. Allergies and Home Medications Allergies Coded Allergies: Sulfa (Sulfonamides) (Unverified Allergy, Unknown, 10/21/10) Patient Home Medication List Home Medication List Reviewed: Yes Cephalexin (Keflex) 500 Mg Capsule, 500 MG PO TID Prescribed by: ALTA BARRETT on 01/08/19 4355 Review of Systems Review of Systems Constitutional: see HPI EENTM: no symptoms reported Respiratory: no symptoms reported Cardiovascular: no symptoms reported Gastrointestinal: no symptoms reported Genitourinary: see HPI : No Musculoskeletal: no symptoms reported Skin: no symptoms reported Psychiatric/Neurological: See HPI Endocrine: No Symptoms Reported Hematologic/Lymphatic: No Symptoms Reported Past Folvmsm-Hqrair-Czaskc Hx Patient Social History Tobacco Use?: Yes Tobacco type used: Cigarettes Substance use?: No Alcohol Use?: No Pt feels they are or have been: No Past Medical History Surgeries: No Respiratory: No Cardiac: No Neurological: No Reproductive Disorders: Yes Genitourinary: Yes (Vaginal prolapse with pessary) Gastrointestinal: No Musculoskeletal: No Endocrine: No Cancer: No Psychosocial: Yes Anxiety Integumentary: No Blood Disorders: No Physical Exam Vital Signs Vital Signs - First Documented 11/26/21 11/26/21 08:06 10:45 Temp 35.9 Pulse 137 Resp 25 B/P (MAP) 122/70 (87) Pulse Ox 99 O2 Delivery Room Air O2 Flow Rate 2.00 Capillary Refill : Less Than 3 Seconds Height, Weight, BMI Height: 5'3.00" Weight: 130lbs. oz. 58.580548cg; 24.00 BMI Method:Stated General Appearance: WD/WN, moderate distress HEENT: normal ENT inspection Neck: normal inspection Cardiovascular: regular rate, rhythm, no edema, no murmur Respiratory: lungs clear, normal breath sounds, no respiratory distress Gastrointestinal: soft, tenderness (Pelvic region) Genital/Rectal: other (Complaint vaginal prolapse with significant vaginal edema.) Extremities: normal inspection, no pedal edema Neurologic/Psychiatric: no motor/sensory deficits, alert, oriented x 3 Skin: normal color, warm/dry Procedures/Interventions Procedure: REDUCTION OF COMPLETE PROCEDNTIA,POSSIBLE PESSARY REMOVAL AND REPLACEMENT Patient Education: Explained Benefits, Explained Risks Agreement on procedure with pt: Yes Breath Sounds per Auscultation: Clear Heart Sounds per Auscultation: Regular Re-examination Fentanyl 75 mcg and etomidate 20 mg were used for conscious sedation during reduction of vaginal prolapse. Reduction was performed without complication. Patient recovered without incident. See nursing and/or respiratory therapy notes for times. Progress/Results/Core Measures Suspected Sepsis SIRS Temperature: Pulse: 137 Respiratory Rate: 25 Laboratory Tests 11/26/21 09:05: White Blood Count 8.8 Blood Pressure 122 /70 Mean: 87 Laboratory Tests 11/26/21 09:05: Creatinine 0.83, Platelet Count 322, Total Bilirubin 0.3 Results/Orders Lab Results Laboratory Tests Test 11/26/21 09:05 11/26/21 11:18 Range/Units White Blood Count 8.8 4.3-11.0 10^3/uL Red Blood Count 4.22 3.80-5.11 10^6/uL Hemoglobin 12.0 11.5-16.0 g/dL Hematocrit 36 35-52 % Mean Corpuscular Volume 85 80-99 fL Mean Corpuscular Hemoglobin 28 25-34 pg Mean Corpuscular Hemoglobin Concent 33 32-36 g/dL Red Cell Distribution Width 12.2 10.0-14.5 % Platelet Count 322 130-400 10^3/uL Mean Platelet Volume 9.7 9.0-12.2 fL Immature Granulocyte % (Auto) 0 % Neutrophils (%) (Auto) 79 H 42-75 % Lymphocytes (%) (Auto) 12 12-44 % Monocytes (%) (Auto) 7 0-12 % Eosinophils (%) (Auto) 2 0-10 % Basophils (%) (Auto) 0 0-10 % Neutrophils # (Auto) 7.0 1.8-7.8 10^3/uL Lymphocytes # (Auto) 1.0 1.0-4.0 10^3/uL Monocytes # (Auto) 0.6 0.0-1.0 10^3/uL Eosinophils # (Auto) 0.2 0.0-0.3 10^3/uL Basophils # (Auto) 0.0 0.0-0.1 10^3/uL Immature Granulocyte # (Auto) 0.0 0.0-0.1 10^3/uL Sodium Level 136 135-145 MMOL/L Potassium Level 3.9 3.6-5.0 MMOL/L Chloride Level 105 98-107 MMOL/L Carbon Dioxide Level 22 21-32 MMOL/L Anion Gap 9 5-14 MMOL/L Blood Urea Nitrogen 22 H 7-18 MG/DL Creatinine 0.83 0.60-1.30 MG/DL Estimat Glomerular Filtration Rate 92 BUN/Creatinine Ratio 27 Glucose Level 104 70-105 MG/DL Calcium Level 8.8 8.5-10.1 MG/DL Corrected Calcium 8.9 8.5-10.1 MG/DL Total Bilirubin 0.3 0.1-1.0 MG/DL Aspartate Amino Transf (AST/SGOT) 20 5-34 U/L Alanine Aminotransferase (ALT/SGPT) 35 0-55 U/L Alkaline Phosphatase 78 40-136 U/L C-Reactive Protein High Sensitivity 1.09 H 0.00-0.50 MG/DL Total Protein 6.7 6.4-8.2 GM/DL Albumin 3.9 3.2-4.5 GM/DL Urine Color YELLOW Urine Clarity CLEAR Urine pH 6.0 5-9 Urine Specific Tangent 1.025 H 1.016-1.022 Urine Protein NEGATIVE NEGATIVE Urine Glucose (UA) NEGATIVE NEGATIVE Urine Ketones NEGATIVE NEGATIVE Urine Nitrite NEGATIVE NEGATIVE Urine Bilirubin NEGATIVE NEGATIVE Urine Urobilinogen 0.2 < = 1.0 MG/DL Urine Leukocyte Esterase NEGATIVE NEGATIVE Urine RBC (Auto) NEGATIVE NEGATIVE Urine RBC NONE /HPF Urine WBC NONE /HPF Urine Crystals NONE /LPF Urine Bacteria NEGATIVE /HPF Urine Casts NONE /LPF Urine Mucus NEGATIVE /LPF Urine Culture Indicated NO My Orders Orders - PETE BRUCE MD Lorazepam Injection (Ativan Injection) (11/26/21 08:45) Valenzuela Cath (11/26/21 08:32) Morphine Injection (Morphine Injection (11/26/21 09:13) Lorazepam Injection (Ativan Injection) (11/26/21 10:02) Fentanyl Inj (Sublimaze Injection) (11/26/21 10:45) Etomidate Injection (Amidate Injection) (11/26/21 10:45) Ns Iv 1000 Ml (Sodium Chloride 0.9%) (11/26/21 10:40) Medications Given in ED Vital Signs/I&O Capillary Refill : Less Than 3 Seconds Blood Pressure Mean: 87 Progress Note : Progress Note Patient was given multiple doses of opioids and Ativan to treat pain and anxiety. I was unable to reduce the vaginal prolapse and consulted Dr. Zamora. She presented to the emergency room and performed reduction of the prolapse under conscious sedation with etomidate and fentanyl. She advised the patient to use MiraLAX for constipation. Patient was stable after recovery from sedation and pain was controlled. She was discharged in improved condition. Departure Impression Primary Impression: Vaginal prolapse Additional Impressions: Pelvic pain Problem with vaginal pessary Qualified Codes: T83.9XXA - Unspecified complication of genitourinary prosthetic device, implant and graft, initial encounter Disposition: 01 HOME, SELF-CARE Condition: Improved Departure-Patient Inst. Decision time for Depature: 11:53 Referrals: NO,LOCAL PHYSICIAN (PCP/Family) Primary Care Physician Patient Instructions: Procedural Sedation, Adult ED, Vaginal Prolapse Add. Discharge Instructions: Avoid heavy lifting or straining. Use a stool softener such as Colace 100 mg once or twice a daily to keep stools soft to avoid needing to strain for bowel movements. If prolapse returns, gently lift the prolapsed tissue back into the vaginal space. Do this by cupping the vaginal tissue and gently applying persistent pressure until the tissue returns to its normal position. You may use K-Y jelly (or other personal water-based lubricant) if needed for lubrication. This may also help moisten the tissue to prevent irritation. If this is not successful i n reducing the prolapse, return to the ER after applying K-Y jelly for moisturizer. You may use Tylenol (acetaminophen) up to 1000 mg every 6 hours and/or ibuprofen up to 600 mg every 6 hours as needed for pain. Call with questions or concerns. Return to the ER if you have worsening symptoms. Follow-up with your hospital nursing assistant as soon as possible. Call first thing Sunday morning for an appointment time and follow-up instructions. All discharge instructions reviewed with patient and/or family. Voiced unders tanding. Copy Copies To 1: BONNIE ZAMORA MD, JOSHUA T MD Nov 26, 2021 11:57
--- NOTE | 2021-11-26 12:32 | Consultation ---
History of Present Illness History of Present Illness Patient Consulted On(carmelo/time) 11/26/21 1030 Date Seen by Provider: Nov 26, 2021 Time Seen by Provider: 10:30 Reason for Visit: Complete procedentia, Pelvic pain History of Present Illness Patient is a 41 yo who presented to the ED for painful "vaginal prolapse." Most of available of patient's history was provided by the patient's mother, who is at the bedside, as the patient was agitated and non-coherent. Per the patient's mother, the complete prolapse occurred since about yesterday, and "everything fell out." Patient has a known history of complete procedentia, with planned surgical procedure at for 12/12/21. She was seen at on 11/21/21, and a Gellhorn pessary was successfully placed at that time. The pessary has not fallen out, and has not been taken out since that time. The patient has been in pain, and has not been able to urinate for the past 12 hours per the patient and mother's report. A bladder scan was performed in the ED, and ~ 100mL of urine was noted in the bladder. She is s/p 4mg of IV morphine, and continues to be in significant discomfort at this time. Attempt at reducing the procedentia by ED provider has been unsuccessful as the patient is uncooperative and in significant discomfort. Allergies and Home Medications Allergies Coded Allergies: Sulfa (Sulfonamides) (Unverified Allergy, Unknown, 10/21/10) Patient Home Medication List Home Medication List Reviewed: Yes Cephalexin (Keflex) 500 Mg Capsule, 500 MG PO TID Prescribed by: ALTA BARRETT on 01/08/19 8005 Past Eyhcwcj-Sfamep-Myjpzp Hx Patient Social History Tobacco Use?: Yes Tobacco type used: Cigarettes Substance use?: No Alcohol Use?: No Pt feels they are or have been: No Past Medical History Surgeries: No Respiratory: No Cardiac: No Neurological: No Reproductive Disorders: Yes Genitourinary: No Gastrointestinal: No Musculoskeletal: No Endocrine: No Cancer: No Psychosocial: Yes Anxiety Integumentary: No Blood Disorders: No Review of Systems-General Constitutional: no symptoms reported Respiratory: no symptoms reported Cardiovascular: no symptoms reported Gastrointestinal: RLQ, LLQ, abdominal pain (RLQ), constipation Genitourinary: decreased output : No Musculoskeletal: no symptoms reported Skin: no symptoms reported Psychiatric/Neurological: No Symptoms Reported Physical Exam-General Problems Physical Exam Vital Signs Vital Signs - First Documented 11/26/21 11/26/21 08:06 10:45 Temp 35.9 Pulse 137 Resp 25 B/P (MAP) 122/70 (87) Pulse Ox 99 O2 Delivery Room Air O2 Flow Rate 2.00 Capillary Refill : Less Than 3 Seconds General Appearance: moderate distress Respiratory: no respiratory distress, no accessory muscle use Cardiovascular: regular rate, rhythm, no edema Gastrointestinal: non tender, soft, no organomegaly Genital/Rectal: other (Complete pelvic organ procedentia with cervix protruding >4cm from introitus. Vaginal mucosa is dry and smooth. No ulcerations.) Back: no CVA tenderness Extremities: normal range of motion, non-tender, no pedal edema, no calf tenderness Neurologic/Psychiatric: alert, other (agitated, uncooperative) Skin: normal color, warm/dry Assessment/Plan Assessment/Plan Admission Diagnosis/Plan Complete pelvic organ procedentia - attempted to reduce procedentia while patient was awake, however, she was uncooperative and agitated despite multiple doses of IV narcotics. She was therefore placed under conscious sedation with 75mcg of fentanyl and 20mg of etomidate, after consent was obtained. The procedentia was reduced successfully without any difficulty, after the tissue was lubricated with KY jelly. The Gellhorn pessary was found to be lodged behind the prolapsed vaginal tissue, and this was removed and properly replaced after reduction of the POP. Patient tolerated the procedure well. BONNIE ZAMORA MD Nov 26, 2021 12:32
[2021-11-26 14:24] VITALS: BP 106/70
== END 2021-11-26 14:20 | disposition home or self-care (01) ==
LOC: EDUNIT# 07:56 → ER 07:58
DX: N81.10 Cystocele, unspecified (principal); T83.9XXA Unspecified complication of genitourinary prosthetic device, implant and graft, initial encounter; Z72.0 Tobacco use
CPT/HCPCS: 36415; 51702; 80053; 81000; 85025; 86141; 93041; 96361; 96374; 96375; 96376

== ENCOUNTER 2022-04-30 17:25 | Emergency (ER) | payer MEDICAID ==
[~2022-04-30] VITALS: Ht 162 cm; Wt 68.0 kg
[2022-04-30] MEDS ORDERED: AMOX1TAB12 (17:46)
[2022-04-30] MEDS ORDERED: cefTRIAXone 1,000 MG VIAL IM ONE (18:15)
[2022-04-30] MEDS ORDERED: KETOROLAC 60 MG/2 ML VIAL IM ONE (18:15)
[2022-04-30] MEDS ORDERED: LIDOCAINE 1% INJ 20 ML VIAL INJ ONE (18:15)
[2022-04-30] MEDS ORDERED: HYDROcodone/APAP 7.5 MG/325 MG (LORTAB, LORCET PLUS) TABLET PO ONE (18:15)
[2022-04-30] MEDS ORDERED: HYDR-3817 PO (18:40)
--- NOTE | 2022-04-30 18:40 | ED EENT ---
History of Present Illness General Chief Complaint: Dental Problems/Pain Stated Complaint: DENTAL PAIN Nursing Triage Note: ARRIVED VIA AMB TO FT3 WITH COMPLAINTS OF RIGHT SIDED DENTAL PAIN. WAS SEEN AT [facility] YESTERDAY AND GIVEN A SHOT OF ROCEPHIN AND ORAL AUGMENTIN. Source: patient Exam Limitations: no limitations History of Present Illness Date Seen by Provider: Apr 30, 2022 Time Seen by Provider: 18:36 Initial Comments This is a 41-year-old female who presented to the ER via POV with complaints of right-sided lower dental pain that radiates into her right ear. States that she has been having dental pain for the past several days, was seen at [facility] yesterday and given a shot of Rocephin and oral Augmentin. States that she has been taken Tylenol and ibuprofen with no relief. Yesterday her face was significantly swollen and states that the antibiotics did help decrease the swelling however she is unable to tolerate the pain. She has follow-up scheduled with [facility] dentist in a couple days. No fever, chills, difficulty chewing or swallowing, nausea, vomiting, abdominal pain. Allergies and Home Medications Allergies Coded Allergies: No Known Drug Allergies (Unverified , 04/30/22) Patient Home Medication List Home Medication List Reviewed: Yes Amoxicillin/Potassium Clav (Amox Tr-K Clv 875-125 mg Tab) 875 Mg-125 Mg Tablet, (Reported) Entered as Reported by: SUZIE COATES on 04/30/221745 Last Action: New Order Hydrocodone/Acetaminophen (Hydrocodone-Acetamin 7.5-325) 7.5 Mg-325 Mg Tablet, 1 EACH PO Q6H PRN for PAIN-BREAKTHROUGH Prescribed by: HARRY GUDINO on 04/30/22 1840 Discontinued Medications Cephalexin (Keflex) 500 Mg Capsule, 500 MG PO TID Discontinued Reason: No Longer Taking Prescribed by: ALTA BARRETT on 01/08/19 1758 Last Action: Discontinued Review of Systems Review of Systems Constitutional: no symptoms reported Eyes: No Symptoms Reported Ears: No Symptoms Reported Nose: no symptoms reported Mouth: see HPI Throat: no symptoms reported Respiratory: no symptoms reported Cardiovascular: no symptoms reported Gastrointestinal: no symptoms reported Musculoskeletal: no symptoms reported Skin: no symptoms reported Neurological: No Symptoms Reported Hematologic/Lymphatic: No Symptoms Reported Immunological/Allergic: no symptoms reported Past Ublngoi-Adpbea-Rfmwxz Hx Patient Social History Tobacco Use?: Yes Smoking Status: Current Everyday Smoker Substance use?: No Alcohol Use?: No Past Medical History Surgeries: No Respiratory: No Cardiac: No Neurological: No Reproductive Disorders: Yes Genitourinary: Yes (Vaginal prolapse with pessary) Gastrointestinal: No Musculoskeletal: No Endocrine: No Cancer: No Psychosocial: Yes Anxiety Integumentary: No Blood Disorders: No Physical Exam Vital Signs Vital Signs - First Documented 04/30/22 17:35 Temp 36.2 Pulse 85 Resp 16 B/P (MAP) 154/97 (116) Pulse Ox 98 O2 Delivery Room Air Height, Weight, BMI Height: 5'3.00" Weight: 130lbs. oz. 58.227010ab; 25.00 BMI Method:Stated General Appearance: WD/WN, no apparent distress Eyes: bilateral eye normal inspection, bilateral eye PERRL, bilateral eye EOMI Ears: bilateral ear auricle normal, bilateral ear canal normal, bilateral ear TM normal Nose: normal inspection; No discharge Mouth/Throat: dental tenderness (over entire right lower tooth border, and lower right cheek ); No trismus Neck: full range of motion, supple, normal inspection, lymphadenopathy (R) Cardiovascular: regular rate, rhythm, no murmur Respiratory: lungs clear, normal breath sounds, no respiratory distress Gastrointestinal: normal bowel sounds, non tender, soft Neurologic/Psychiatric: alert, normal mood/affect, oriented x 3 Skin: normal color, warm/dry Procedures/Interventions Patient Education: Explained Benefits, Explained Risks Breath Sounds per Auscultation: Clear Heart Sounds per Auscultation: Regular Progress/Results/Core Measures Results/Orders My Orders Medications Given in ED Vital Signs/I&O Blood Pressure Mean: 116 Progress Progress Note : Progress Note Patient symptoms are improving after injection of Rocephin initiation of Augmentin. 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 Given a second dose of Rocephin in the ER here with some additional medication for pain management. She was given Toradol IM, states she is feeling somewhat better prior to discharge. Discharge plan of care reviewed and she is agreeable with plan. Departure Impression Primary Impression: Tooth abscess Disposition: 01 HOME, SELF-CARE Condition: Improved Departure-Patient Inst. Decision time for Depature: 18:37 Referrals: NO,LOCAL PHYSICIAN (PCP/Family) Primary Care Physician Patient Instructions: Dental Pain, Tooth Decay, Adult (DC) Add. Discharge Instructions: Plan: 1. Take Hydrocodone as directed for pain. 2. Take Ibuprofen 800mg by mouth every 8 hours as needed for pain. 3. Call Dentist office first thing in the morning. Will need close follow up. 4. Return for any new, concerning, or worsening symptoms. All discharge instructions reviewed with patient and/or family. Voiced understanding. Scripts Hydrocodone/Acetaminophen (Hydrocodone-Acetamin 7.5-325) 7.5 Mg-325 Mg Tablet 1 EACH PO Q6H PRN for PAIN-BREAKTHROUGH, #20 TAB 0 Refills Prov: HARRY GUDINO FAST FOOD MANAGER 04/30/22 HARRY GUDINO FAST FOOD MANAGER Apr 30, 2022 18:40
[2022-04-30 18:47] VITALS: BP 119/77
== END 2022-04-30 18:47 | disposition home or self-care (01) ==
LOC: EDUNIT# 17:25 → ER 17:27
DX: K04.7 Periapical abscess without sinus (principal)
CPT/HCPCS: 99284

== ENCOUNTER 2022-12-19 02:53 | Emergency (ER) | payer MEDICAID ==
[~2022-12-19 02:53] MED LIST changes: +AMOX1TAB12; +HYDR-3817 PO
[2022-12-19] MEDS ORDERED: DICL50TA6 PO (20:41)
[2022-12-19] MEDS ORDERED: PENI500T PO (20:41)
== END 2022-12-19 03:30 | disposition left against medical advice (07) ==
LOC: EDUNIT# 02:53 → ER 02:55
DX: M25.511 Pain in right shoulder (principal)

== ENCOUNTER 2022-12-19 19:40 | Emergency (ER) | payer MEDICAID ==
[~2022-12-19] VITALS: Ht 162.5 cm; Wt 61.6 kg
[2022-12-19 20:15] VITALS: BP 134/99
--- NOTE | 2022-12-19 20:23 | Diagnostic Imaging Report ---
HISTORY: Right shoulder pain COMPARISON: None TECHNIQUE: 3 views of the right shoulder FINDINGS: No acute fracture or dislocation is seen in the right shoulder. Alignment is normal. Joint spaces are preserved. There is calcification adjacent to the humeral head consistent with calcific tendinitis in the rotator cuff. IMPRESSION: 1. No acute osseous abnormality in the right shoulder. 2. Calcific tendinitis in the right rotator cuff. Dictated by: Dictated on workstation # [id number]
--- NOTE | 2022-12-19 20:40 | ED General ---
General Chief Complaint: Upper Extremity Stated Complaint: POSS DISLOCATED SHOULDER, INFECTED JAW Nursing Triage Note: PT AMB TO FT 1 WITH CC OF R SHOULDER PAIN X2 DAYS. PT STATES SHE BELIEVES SHE "HAS AN INFECTION IN HER R JAW THAT COULD BE RELATED TO HER SHOULDER PAIN." PT REPORTS FREQUENT INFECTIONS OF HER TEETH. PT DENIES INJURY TO R SHOULDER. Source of Information: Patient Exam Limitations: No Limitations History of Present Illness Date Seen by Provider: Dec 19, 2022 Time Seen by Provider: 19:50 Initial Comments Patient is a 42-year-old female who presents to the emergency department for evaluation of right shoulder pain for the last 2 to 3 days. She states she has also had some intermittent right jaw swelling. She states she has frequent dental infections due to some poor dentition. Denies any recent fevers. Denies any trauma to her right shoulder. She has taken ibuprofen intermittently with minimal improvement in symptoms. Allergies and Home Medications Allergies Coded Allergies: No Known Drug Allergies (Unverified , 04/30/22) Patient Home Medication List Home Medication List Reviewed: Yes Amoxicillin/Potassium Clav (Amox Tr-K Clv 875-125 mg Tab) 875 Mg-125 Mg Tablet, (Reported) Entered as Reported by: SUZIE COATES on 04/30/22 1746 Hydrocodone/Acetaminophen (Hydrocodone-Acetamin 7.5-325) 7.5 Mg-325 Mg Tablet, 1 EACH PO Q6H PRN for PAIN-BREAKTHROUGH Prescribed by: HARRY GUDINO on 04/30/22 1840 Review of Systems Review of Systems Constitutional: no symptoms reported EENTM: see HPI Respiratory: no symptoms reported Cardiovascular: no symptoms reported Gastrointestinal: no symptoms reported Genitourinary: no symptoms reported Musculoskeletal: see HPI, joint pain Skin: no symptoms reported Psychiatric/Neurological: No Symptoms Reported Hematologic/Lymphatic: No Symptoms Reported Immunological/Allergic: no symptoms reported Past Wzdfngr-Ahqvjp-Qftvnl Hx Patient Social History Tobacco Use?: Yes Tobacco type used: Cigarettes Smoking Status: Current Everyday Smoker Substance use?: No Alcohol Use?: No Pt feels they are or have been: No Immunizations Up To Date Influenza Vaccine Up-to-Date: No; Not Current Past Medical History Surgeries: No Respiratory: No Cardiac: No Neurological: No Reproductive Disorders: Yes Genitourinary: Yes (Vaginal prolapse with pessary) Gastrointestinal: No Musculoskeletal: No Endocrine: No Cancer: No Psychosocial: Yes Anxiety Integumentary: No Blood Disorders: No Physical Exam Vital Signs Vital Signs - First Documented 12/19/22 19:48 Temp 37.0 Pulse 84 Resp 22 B/P (MAP) 134/99 (111) Pulse Ox 100 O2 Delivery Room Air Capillary Refill : Less Than 3 Seconds Height, Weight, BMI Height: 5'3.00" Weight: 130lbs. oz. 58.194399oq; 23.00 BMI Method:Stated General Appearance: No Apparent Distress, WD/WN HEENT: PERRL/EOMI, TMs Normal, Normal ENT Inspection, Pharynx Normal Neck: Full Range of Motion, Normal Inspection, Non Tender, Supple Respiratory: Chest Non Tender, Lungs Clear, Normal Breath Sounds, No Accessory Muscle Use, No Respiratory Distress Cardiovascular: Regular Rate, Rhythm, Normal Peripheral Pulses Gastrointestinal: Non Tender, Soft Neurologic/Psychiatric: Alert, Oriented x3, No Motor/Sensory Deficits, Normal Mood/Affect Skin: Normal Color, Warm/Dry Comments Very poor dentition generally; very mild swelling noted into the right maxilla; patient endorses tenderness to palpation about the anterior and lateral right shoulder Procedures/Interventions Patient Education: Explained Benefits, Explained Risks Breath Sounds per Auscultation: Clear Heart Sounds per Auscultation: Regular Progress/Results/Core Measures Suspected Sepsis SIRS Temperature: Pulse: 84 Respiratory Rate: 22 Blood Pressure 134 /99 Mean: 111 Results/Orders My Orders Orders - BRADEN CARLTON APRN Shoulder, Right, 3 Views (12/19/22 20:00) Ceftriaxone (Rocephin) (12/19/22 20:45) Lidocaine 1% Inj 20 Ml (Xylocaine 1% Inj (12/19/22 20:45) Vital Signs/I&O 12/19/22 19:48 Temp 37.0 Pulse 84 Resp 22 B/P (MAP) 134/99 (111) Pulse Ox 100 O2 Delivery Room Air Capillary Refill : Less Than 3 Seconds Blood Pressure Mean: 111 Progress Note : Progress Note Patient is nontoxic and well-hydrated on exam. She does appear to have some swelling of her right mandible consistent with odontogenic infection. Exam of the right shoulder is largely unremarkable other than tenderness to palpation and patient not wanting to move the shoulder due to pain. X-rays of the right shoulder were obtained and are acutely negative. Patient was given an IM dose of Rocephin for the dental infection he will be discharged home on a short course of penicillin. She will also be given a course of NSAIDs. Follow-up with PCP. Return precautions for symptomology discussed. Patient verbalized understanding. Departure Impression Primary Impression: Right shoulder pain Qualified Codes: M25.511 - Pain in right shoulder Additional Impression: Dental abscess Disposition: 01 HOME, SELF-CARE Condition: Stable Departure-Patient Inst. Decision time for Depature: 20:35 Referrals: [facility] [place] PHYSICIAN (PCP) Primary Care Physician Patient Instructions: Tooth Abscess ED, Shoulder Pain ED Scripts Diclofenac Sodium (Diclofenac Sodium) 50 Mg Tablet.dr 50 MG PO TID PRN for PAIN-SEE DOSE INSTRUCTIONS for 5 Days, #15 TAB 0 Refills Prov: BRADEN CARLTON APRN 12/19/22 Penicillin V Potassium (Penicillin V Potassium) 500 Mg Tablet 500 MG PO TID for 5 Days, #15 TAB 0 Refills Prov: BRADEN CARLTON APRN 12/19/22 BRADEN CARLTON APRN Dec 19, 2022 20:40
[2022-12-19] MEDS ORDERED: PENI500T PO (20:41)
[2022-12-19] MEDS ORDERED: DICL50TA6 PO (20:41)
[2022-12-19] MEDS ORDERED: LIDOCAINE 1% INJ 10 ML VIAL ONE (20:43)
[2022-12-19] MEDS ORDERED: LIDOCAINE 1% INJ 20 ML VIAL INJ ONE (20:45)
[2022-12-19] MEDS ORDERED: cefTRIAXone 1,000 MG VIAL IM ONE (20:45)
== END 2022-12-19 20:58 | disposition home or self-care (01) ==
LOC: EDUNIT# 19:40 → ER 19:42
DX: M25.511 Pain in right shoulder (principal); K04.7 Periapical abscess without sinus; F17.210 Nicotine dependence, cigarettes, uncomplicated; Z28.310 Unvaccinated for COVID-19
CPT/HCPCS: 73030

== ENCOUNTER 2023-01-16 23:59 | Emergency (ER) | payer MEDICAID ==
[~2023-01-16 23:59] MED LIST changes: +DICL50TA6 PO; +PENI500T PO
--- NOTE | 2023-01-17 00:36 | ED EENT ---
History of Present Illness General Chief Complaint: Dental Problems/Pain Stated Complaint: DENTAL PAIN Nursing Triage Note: PT ARRIVAL TO ER VIA PRIVATE VEHICLE WITH COMPLAINT OF DENTAL PAIN ON TOP RIGHT X3 DAYS. PAIN AT 10/10. Source: patient, old records Exam Limitations: no limitations (SOCO STRONG) History of Present Illness Date Seen by Provider: Jan 17, 2023 Time Seen by Provider: 12:09 Initial Comments Ms. Mireles is a 42 yo F with PMH of hysterectomy & bladder prolapse & previous dental infections who presents to the ED with 2 day history of worsening, constant, 10/10 sharp/shooting pain from the right maxillary region with swelling into the right side of her nose and periorbital region which she attributes to an infected tooth. She has had pain like this in the past associated with tooth decay. She has not tried any pain medication for this current issue and states that she is having difficulty finding a dentist who will take her insurance. She denies N/V/F/C/D or odynophagia, but does endorse blurriness of the right eye without diplopia, she also reports having trouble with her contacts and possibly an eye infection. She is nervous about her current maxillary swelling affecting her right eye and also complains of right sided nasal blockage. Timing/Duration: gradual, yesterday Severity: severe Location: facial, dental Prearrival Treatment: no prearrival treatment Associated Symptoms: facial pain/swelling; No fever, No sore throat; tooth pain (SOCO STRONG) Allergies and Home Medications Allergies Coded Allergies: No Known Drug Allergies (Unverified , 04/30/22) Patient Home Medication List Home Medication List Reviewed: Yes (PETE BRUCE MD) Amoxicillin/Potassium Clav (Amox Tr-K Clv 875-125 mg Tab) 875 Mg-125 Mg Tablet, (Reported) Entered as Reported by: SUZIE COATES on 04/30/22 174 Clindamycin HCl (Clindamycin HCl) 300 Mg Capsule, 300 MG PO QID Prescribed by: PETE ROBERTSON on 01/17/23 010 Diclofenac Sodium (Diclofenac Sodium) 50 Mg Tablet.dr, 50 MG PO TID PRN for PAIN-SEE DOSE INSTRUCTIONS Prescribed by: Babatunde Muñoz on 12/19/222040 Hydrocodone/Acetaminophen (Hydrocodone-Acetamin 7.5-325) 7.5 Mg-325 Mg Tablet, 1 EACH PO Q6H PRN for PAIN-BREAKTHROUGH Prescribed by: HARRY GUDINO on 04/30/22 1840 Hydrocodone/Acetaminophen (Hydrocodone-Acetamin 5-325 mg) 5 Mg-325 Mg Tablet, 1 TAB PO Q4H PRN for PAIN-MODERATE (5-7) Prescribed by: PETE ROBERTSON on 01/17/23 0100 Penicillin V Potassium (Penicillin V Potassium) 500 Mg Tablet, 500 MG PO TID Prescribed by: Babatunde Muñoz on 12/19/222040 Review of Systems Review of Systems Constitutional: No chills, No fever, No malaise Eyes: Blurred Vision, Photophobia, Contact Lenses Ears: Denies Dizziness, Denies Bloody Discharge, Denies Clear Discharge, Denies Purulent Discharge Nose: congestion; denies epistaxis, denies purulent discharge Mouth: denies bloody discharge, denies purulent discharge Throat: denies swelling, denies neck stiffness, denies hoarse, denies painful swallowing Respiratory: No cough, No short of breath Cardiovascular: No chest pain, No palpitations Gastrointestinal: No abdominal pain, No diarrhea, No nausea, No vomiting Musculoskeletal: No back pain, No muscle cramps Skin: No change in color, No pruritus, No rash Neurological: Denies Headache, Denies Numbness, Denies Paresthesia, Denies Seizure (SOCO STRONG) Past Zphthir-Jovlku-Enhfcy Hx Patient Social History Tobacco Use?: No Use of E-Cig and/or Vaping dev: No Substance use?: No Alcohol Use?: No Pt feels they are or have been: No (SOCO STRONG) Immunizations Up To Date Influenza Vaccine Up-to-Date: No; Not Current (SOCO STRONG) Past Medical History Surgeries: No Respiratory: No Cardiac: No Neurological: No Reproductive Disorders: Yes Genitourinary: Yes (Vaginal prolapse with pessary) Gastrointestinal: No Musculoskeletal: No Endocrine: No Cancer: No Psychosocial: Yes Anxiety Integumentary: No Blood Disorders: No (SOCO STRONG) Physical Exam Vital Signs Vital Signs - First Documented 01/17/23 00:12 Temp 36.3 Pulse 92 Resp 20 B/P (MAP) 158/92 (114) Pulse Ox 100 O2 Delivery Room Air (PETE BRUCE MD) Height, Weight, BMI Height: 5'3.00" Weight: 130lbs. oz. 58.539659eu; 23.00 BMI Method:Stated General Appearance: WD/WN, no apparent distress Eyes: bilateral eye normal inspection, bilateral eye PERRL, bilateral eye EOMI Ears: bilateral ear erythema, bilateral ear TM red Mouth/Throat: pharynx normal, dental tenderness; No excessive drooling, No mandibular swelling; maxillary swelling (Right sided); No pharynx swelling, No pharynx tenderness, No tonsillar exudate, No tonsillar swelling, No uvula swelling, No voice changes; other (significant tooth decay, particularly upper right maxilla & missing multiple teeth) Neck: full range of motion, supple, tender lateral Cardiovascular: no edema, no murmur, tachycardia Respiratory: chest non-tender, lungs clear, normal breath sounds Gastrointestinal: non tender Neurologic/Psychiatric: rater associate II-XII nml as tested, no motor/sensory deficits, alert, oriented x 3, other (manic with pressured speech) Skin: normal color, warm/dry; No pallor, No rash (SOCO STRONG) Procedures/Interventions Patient Education: Explained Benefits, Explained Risks Breath Sounds per Auscultation: Clear Heart Sounds per Auscultation: Regular (SOCO STRONG) Progress/Results/Core Measures Results/Orders My Orders Orders - PETE BRUCE MD Ketorolac Injection (Toradol Injection) (01/17/23 01:00) Clindamycin Capsule (Cleocin Capsule) (01/17/23 01:00) (PETE BRUCE MD) Vital Signs/I&O (PETE BRUCE MD) Blood Pressure Mean: 114 Progress Progress Note : Progress Note Patient was interviewed and examined along with MS 4. She had notable swelling with mild erythema in the right maxillary region. There is no overt abscess. The area was quite tender. No periorbital edema, erythema, or diplopia. Vision intact. She was treated with clindamycin 450 mg and a Toradol injection. She did not appear septic and did not have an overt abscess amenable to drainage. See discharge instructions for further discussion. (PETE BRUCE MD) Departure Impression Primary Impression: Dental abscess Additional Impressions: Facial cellulitis Dental decay Pain, dental Disposition: 01 HOME, SELF-CARE Condition: Improved Departure-Patient Inst. Decision time for Depature: 00:54 (PETE BRUCE MD) Referrals: DIDIER YATES [facility]aim[facility] NO,LOCAL PHYSICIAN (PCP) Primary Care Physician Patient Instructions: Tooth Abscess ED, Tooth Decay, Adult Add. Discharge Instructions: Complete your antibiotics as prescribed. For primary pain control use ibuprofen up to 600 mg every 6 hours as needed. For pain not controlled by ibuprofen, you may add Tylenol (acetaminophen) up to 1000 mg every 6 hours as needed. For more severe pain not controlled by ibuprofen use hydrocodone as prescribed instead of Tylenol. Use hydrocodone with caution as it may cause drowsiness. Do not operate machinery, drive, or make important decisions on hydrocodone. Hydrocodone may also cause constipation, so you may wish to use a stool softener along with it. Seek care from a dentist or oral surgeon as soon as possible. We do not have a specific recommendation of a dentist connected with the emergency room, but you may wish to seek referrals from friends or family. Contact information for [facility], Dr. Yates, and Dr. Pratt is below. Return to the ER if you have worsening symptoms including development of fever, escalating pain not responsive to your medications, significant worsening of swelling, changes in your vision or double vision, etc. All discharge instructions reviewed with patient and/or family. Voiced understanding. Scripts Hydrocodone/Acetaminophen (Hydrocodone-Acetamin 5-325 mg) 5 Mg-325 Mg Tablet 1 TAB PO Q4H PRN for PAIN-MODERATE (5-7), #10 TAB Prov: PETE BRUCE MD 01/17/23 Clindamycin HCl (Clindamycin HCl) 300 Mg Capsule 300 MG PO QID, #56 CAP Prov: PETE BRUCE MD 01/17/23 Work/School Note: Work Release Form Date Seen in the Emergency Department: Jan 17, 2023 Return to Work: Jan 18, 2023 Restrictions: No Restrictions Medical Student Attestation and Attending Note: I have personally interviewed and examined this patient along with Soco Strong, MS4. I have reviewed student documentation including history, physical, and assessments. I agree with the documentation except where otherwise noted. Exam: General: Alert, oriented, mild acute distress, well developed HEENT: Normocephalic and atraumatic. Erythema, tenderness, and swelling noted over the right maxillary region. Extraocular movements intact. No diplopia. No palpable abscess. Dental decay noted with no overt drainable abscess in the mouth. Heart: Regular rate and rhythm without murmur Lungs: Clear to auscultation bilaterally with normal effort Neuropsych: Alert, oriented, no focal deficits, pressured speech Skin: Warm and dry without rashes, mild erythema over the affected area on the right face (PETE BRUCE MD) Copy Copies To 1: [facility]/SOCO TAYLOR Jan 17, 2023 00:36 PETE BRUCE MD Jan 17, 2023 00:58
[2023-01-17 00:53] VITALS: BP 158/92
[2023-01-17] MEDS ORDERED: KETOROLAC 30 MG/ML VIAL IM ONE (01:00)
[2023-01-17] MEDS ORDERED: ACHD5005 PO (01:00)
[2023-01-17] MEDS ORDERED: CLINDAMYCIN 150 MG (CLEOCIN) CAP PO ONE (01:00)
[2023-01-17] MEDS ORDERED: CLIN-144 PO (01:00)
== END 2023-01-17 01:06 | disposition home or self-care (01) ==
LOC: EDUNIT# 23:59 → ER 01-17 00:02
DX: K04.7 Periapical abscess without sinus (principal); L03.211 Cellulitis of face; K02.9 Dental caries, unspecified
CPT/HCPCS: 99284

== ENCOUNTER 2023-01-17 21:57 | Emergency (ER) | payer MEDICAID ==
[~2023-01-17] VITALS: Ht 162.6 cm; Wt 61.0 kg
[~2023-01-17 21:57] MED LIST changes: +ACHD5005 PO; +CLIN-144 PO
--- NOTE | 2023-01-17 22:14 | ED EENT ---
History of Present Illness General Chief Complaint: Dental Problems/Pain Stated Complaint: R SIDE FACIAL SWELLING/TOOTH ABSCESS Source: patient Exam Limitations: no limitations History of Present Illness Date Seen by Provider: Jan 17, 2023 Time Seen by Provider: 21:59 Initial Comments 42-year-old female presents to the emergency department today for right facial swelling, pain. She was seen at the [facility] clinic today given a shot of Rocephin and Toradol for a dental abscess. She was discharged on clindamycin and with hydrocodone and Toradol. She states her symptoms or not getting any better. She went to the [facility] dental clinic and was told they did not "have any appointments until 2023." She denies fevers but has had some chills. No nausea or vomiting. She is tolerating p.o. All other systems reviewed and negative except documented per HPI. Voice recognition software was used to help create this chart Allergies and Home Medications Allergies Coded Allergies: No Known Drug Allergies (Unverified , 04/30/22) Patient Home Medication List Home Medication List Reviewed: Yes Amoxicillin/Potassium Clav (Amox Tr-K Clv 875-125 mg Tab) 875 Mg-125 Mg Tablet, (Reported) Entered as Reported by: SUZIE COATES on 04/30/22 174 Clindamycin HCl (Clindamycin HCl) 300 Mg Capsule, 300 MG PO QID Prescribed by: PETE ROBERTSON on 01/17/2399 Diclofenac Sodium (Diclofenac Sodium) 50 Mg Tablet.dr, 50 MG PO TID PRN for PA IN-SEE DOSE INSTRUCTIONS Prescribed by: Babatunde Muñoz on 12/19/222040 Hydrocodone/Acetaminophen (Hydrocodone-Acetamin 7.5-325) 7.5 Mg-325 Mg Tablet, 1 EACH PO Q6H PRN for PAIN-BREAKTHROUGH Prescribed by: HARRY GUDINO on 04/30/22 184 Hydrocodone/Acetaminophen (Hydrocodone-Acetamin 5-325 mg) 5 Mg-325 Mg Tablet, 1 TAB PO Q4H PRN for PAIN-MODERATE (5-7) Prescribed by: PETE ROBERTSON on 01/17/23 010 Penicillin V Potassium (Penicillin V Potassium) 500 Mg Tablet, 500 MG PO TID Prescribed by: Babatunde Muñoz on 12/19/222040 Review of Systems Review of Systems Constitutional: chills Past Hjvuosb-Pziuuh-Ycbatx Hx Patient Social History Tobacco Use?: Yes Tobacco type used: Cigarettes Use of E-Cig and/or Vaping dev: No Substance use?: No Alcohol Use?: No Past Medical History Surgeries: No Respiratory: No Cardiac: No Neurological: No Reproductive Disorders: Yes Genitourinary: Yes (Vaginal prolapse with pessary) Gastrointestinal: No Musculoskeletal: No Endocrine: No Cancer: No Psychosocial: Yes Anxiety Integumentary: No Blood Disorders: No Family Medical History Reviewed Nursing Family Hx No Pertinent Family Hx Physical Exam Height, Weight, BMI Height: 5'3.00" Weight: 130lbs. oz. [id number]; 23.00 BMI Method:Stated General Appearance: WD/WN, no apparent distress Eyes: bilateral eye normal inspection, bilateral eye PERRL, bilateral eye EOMI, bilateral eye other (No pain with extraocular movements) Ears: bilateral ear auricle normal, bilateral ear canal normal, bilateral ear TM normal Nose: normal inspection Mouth/Throat: other (Significant right-sided facial swelling in the malar region. Palpation shows tenderness to the superior dentition. No drainable abscess. Several dental caries) Neck: non-tender, supple, normal inspection Cardiovascular: regular rate, rhythm, no murmur Respiratory: chest non-tender, lungs clear, normal breath sounds, no respiratory distress, no accessory muscle use Gastrointestinal: soft Neurologic/Psychiatric: alert, oriented x 3, other (Normal voice) Skin: normal color, warm/dry Procedures/Interventions Patient Education: Explained Benefits, Explained Risks Breath Sounds per Auscultation: Clear Heart Sounds per Auscultation: Regular Departure Communication (Admissions) The patient is hemodynamically stable. She is already on antibiotics, has only had an IM dose of Rocephin and 1 p.o. dose of clindamycin thus far. She has pain medications at home. She came here hoping that we would be able to refer her to a dentist. Advised that I have resources for different dentist but I do not have the ability to refer her. No evidence for orbital cellulitis. No palpable drainable abscess. she is nontoxic. Impression Primary Impression: Dental abscess Disposition: 01 HOME, SELF-CARE Condition: Stable Departure-Patient Inst. Referrals: NO,LOCAL PHYSICIAN (PCP/Family) Primary Care Physician Patient Instructions: Tooth Abscess ED Add. Discharge Instructions: Please call around to schedule a dental appointment. Continue to take the antibiotics as prescribed until they are gone. Use your hydrocodone and Toradol as needed for pain. Return to the emergency department for any severe concerns. All discharge instructions reviewed with patient and/or family. Voiced understanding. JANETH DUFFY DO Jan 17, 2023 22:14
[2023-01-17 22:17] VITALS: BP 137/84
== END 2023-01-17 22:17 | disposition home or self-care (01) ==
LOC: EDUNIT# 21:57 → ER FS 21:59
DX: K04.7 Periapical abscess without sinus (principal); F17.210 Nicotine dependence, cigarettes, uncomplicated; Z28.310 Unvaccinated for COVID-19
CPT/HCPCS: 99283